=== PATIENT | female | born 1995 | race Caucasian/White ===

== ENCOUNTER 2023-07-10 03:21 | Outpatient (CLI) | payer BC, SELFPAY ==
[2023-07-10 22:40] LABS: Kit/Specimen SENT
== END 2023-07-10 03:22 | disposition home or self-care (01) ==
PROVIDERS: PCP Nurse Practitioner Family; Visit Provider Nurse Practitioner Family
DX: Z00.00 Encounter for general adult medical examination without abnormal findings (principal)
CPT/HCPCS: 36415

== ENCOUNTER 2024-03-16 15:52 | Outpatient (REF) | payer BC, SELFPAY ==
--- OUTSIDE RECORDS SUMMARY | 2024-03-16 16:02 | XMS_ITS | Encounter Summary ---
Author Organization [facility] Address [address] [place] [address] Care Team Providers Care Policewoman Name Role Phone Ben, Tommy MANCILLA Primary Care Provider [phone] Encounter Details Date Type Department Care Team (Late st Contact Info) Description 09/22/2014 14:08 EST - 09/22/2014 23:59 EST Hospital Encounter [facility] [address] [place] [address] BenTommy ND [address] [place] [id number] Discharge Disposition: Auto Discharge Social History Tobacco Use Types Packs/Day Years Used Date Smoking Tobacco: Never Alcohol Use Standard Drinks/Week Comments No 0 (1 standard drink = 0.6 oz pur e alcohol) Sex and Gender Information Value Date Recorded Sex Assigned at Not on file Gender Identity Not on file Sexual Orientation Not on file documented as of this encounter Discharge Diagnoses Diagnosis 729.81 SWELLING OF LIMB[ICD-9-CM] 883.0 OPEN WOUND OF FINGER[ICD-9-CM] 923.3 CONTUSION OF FINGER[ICD-9-CM] documented in this encounter Medications at Time of Discharge Medication Sig Dispensed Refills Start Date End Date UNKNOWN TO PATIENT documented as of this encounter Discharge Disposition Disposition Code Departure Means Destination Auto Discharge Home documented in this encounter Plan of Treatment Not on file documented as of this encounter Procedures Procedure Name Priority Date/Time Associated Diagnosis Comments FINGER 2 OR MORE VIEWS 09/22/2014 14:29 EST documented in this encounter Results * FINGER 2 OR MORE VIEWS (09/22/2014 14:29 EST) Anatomical Region Laterality Modality Other 09/22/2014 14:2 9 EST 09/22/2014 14:58 EST Narrative 09/22/2014 14:58 EST FINGER 2 OR MORE VIEWS ??09/22/2014 2:29 PM Clinical History/Comments: bruising, laceration, mild swelling. Findings: ?? A bandage is noted soft tissue defect suggests laceration underlying bone shows ??no fracture or dislocation. Procedure Note Ludwin Mane MD - 09/22/2014 FINGER 2 OR MORE VIEWS 09/22/2014 2:29 PM Clinical History/Comments: bruising, laceration, mild swelling. Findings: A bandage is noted soft tissue defect suggests laceration underlying bone shows no fracture or dislocation. Tommy [facility]AGI NG ORDERABLES documented in this encounter Visit Diagnoses Not on filedocumented in this encounter Care Teams Policewoman Relationship Specialty Start Date End Date Tommy Contreras ND [address] [place] [id number] PCP - General 12/04/13 documented as of this encounter
--- OUTSIDE RECORDS SUMMARY | 2024-03-16 16:02 | XMS_ITS | Clinical Summary ---
Author Organization [facility] Address [address] [place] [address] Care Team Providers Care Ship'S Master Name Role Phone Tommy Contreras ND Primary Care Provider Medications Medication Sig Dispensed Refills Start Date End Date Status UNKNOWN TO PATIENT Active Surgical History Surgery Date Site/Laterality Comments WISDOM TOOTH EXTRACTION Social History Tobacco Use Types Packs/Day Years Used Date Smoking Tobacco: Never Alcohol Use Standard Drinks/Week Comments No 0 (1 standard drink = 0.6 oz pur e alcohol) Sex and Gender Information Value Date Recorded Sex Assigned at Not on file Gender Identity Not on file Sexual Orientation Not on file Obstetrics History Last Filed Vital Signs Vital Sign Reading Time Taken Comments Blood Pressure 131/81 09/18/2014 0719 EST Pulse 103 09/18/2014 0719 EST Temperature 37.4 ??C (99.3 ??F) 09/18/2014 0719 EST Respiratory Rate 14 09/18/2014 0719 EST Oxygen Saturation 100% 09/18/2014 0719 EST Inhaled Oxygen Concentration - - Weight 51.7 kg (114 lb) 09/18/2014 0722 EST Height 160 cm (5' 3) 09/18/2014 0722 EST Body Mass Index 20.19 09/18/2014 0722 EST Plan of Treatment Health Maintenance Due Date Last Done Comments Hepatitis C Screen 1995 Hepatitis B Vaccine (1 of 3 - 19+ 3-dose series) 06/17 COVID-19 Vaccine (2022- season) 2023 Care Teams Ship'S Master Relationship Specialty Start Date End Date Tommy Contreras ND [address] [place], [place] [address] (work) PCP - General 12/04/13
--- OUTSIDE RECORDS SUMMARY | 2024-03-16 16:02 | XMS_ITS | Encounter Summary ---
Author Organization [facility] Address [address] [place] [address] Care Team Providers Care Commercial Technician Name Role Phone BenTommy CHARO Primary Care Provider [phone] Reason for Visit * Reason Onset Date Comments Appointment Related 01/02/2023 Encounter Details Date Type Department Care Team (Late st Contact Info) Description 01/02/2023 Telephone [facility] MED[facility]ET[facility] [address] [place], [place] [address] Ludwin Pineda MD [address] [facility] [address] [place] [address] Appointment Related Social History Tobacco Use Types Packs/Day Years Used Date Smoking Tobacco: Never Alcohol Use Standard Drinks/Week Comments No 0 (1 standard drink = 0.6 oz pur e alcohol) Sex and Gender Information Value Date Recorded Sex Assigned at Not on file Gender Identity Not on file Sexual Orientation Not on file documented as of this encounter Miscellaneous Notes * Telephone Encounter - Ramona Godinez - 01/02/2023 0808 EDT Calling to discuss potential appt for screening for egg donation. Please call. documented in this encounter Plan of Treatment Not on file documented as of this encounter Visit Diagnoses Not on filedocumented in this encounter Care Teams Commercial Technician Relationship Specialty Start Date End Date Tommy Contreras ND [facility] [place] [address] PCP - General 12/04/13 documented as of this encounter
--- OUTSIDE RECORDS SUMMARY | 2024-03-16 16:02 | XMS_ITS | Encounter Summary ---
Author Organization [facility] Address [address] [place] [address] Care Team Providers Care Supervisory Aide Name Role Phone Tommy Contreras ND Primary Care Provider [phone] Encounter Details Date Type Department Care Team (Late st Contact Info) Description 03/29/2016 Results Only [facility] [phone] Ashley Ng NP [address] [address] Social History Tobacco Use Types Packs/Day Years Used Date Smoking Tobacco: Never Alcohol Use Standard Drinks/Week Comments No 0 (1 standard drink = 0.6 oz pur e alcohol) Sex and Gender Information Value Date Recorded Sex Assigned at Not on file Gender Identity Not on file Sexual Orientation Not on file documented as of this encounter Plan of Treatment Not on file documented as of this encounter Procedures Procedure Name Priority Date/Time Associated Diagnosis Comments PAP TEST- RESULT ONLY Routine 03/29/2016 0:00 EDT documented in this encounter Results * PAP TEST- RESULT ONLY (03/29/2016 0:00 EDT) Pathology Report: CYTOPATHOLOGY REPORT Reports generated via electronic interface contain original data; however they are lacking the format of the original report. Caution should be taken when reading/interpreti ng unformatted reports. Name: ? BRIGETTE MOSS ? Accession #: ? [id number] : ? 1995 (Age: 20) ??F ?Collect Date: ? 03/29/2016 Location: ? [facility] ? Receive Date: ? 03/30/2016 Provider: ?ASHLEY NG CURRICULUM DEVELOPMENT SPECIALIST Copy to: ? Specimen/Source: ?Pap Test, Cervix/Endocervix, ThinPrep Imaging System with manual evaluation Last Menstrual Period: ? 03/13/2016 Hormonal/Contracep tive Status: ? None Other: ? Transport Assistant Clinical/Treatment Hx - None ? SPECIMEN ADEQUACY ? Satisfactory for Evaluation - transformation zone component present GENERAL CATEGORIZATION ? Negative for Intraepithelial Lesion or Malignancy INTERPRETATION ? Reactive cellular changes associated with inflammation present (includes repair). ? Document reviewed and electronically signed by: ? JARROD SLOAN MD ? Report Date: ??04/05/2016 17:28 End of Report [facility] 03/29/2016 03/30/2016 Ashley Ng CURRICULUM DEVELOPMENT SPECIALIST PATHOLOGY ORDERABLES [facility] [address] [place] [address] documented in this encounter Visit Diagnoses Not on filedocumented in this encounter Care Teams Supervisory Aide Relationship Specialty Start Date End Date Tommy Contreras ND [facility] [place] [address] PCP - General 12/04/13 documented as of this encounter
--- OUTSIDE RECORDS SUMMARY | 2024-03-16 16:02 | XMS_ITS | Encounter Summary ---
[place] [address] Care Team Providers Care Membership Coordinator Name Role Phone Juan Luis Luevano RHETT Primary Care Provider [phone] Reason for Referral * Diagnostic Test (Routine) - Pending Review Specialty Diagnoses / Procedures Referred By Contac t Referred To Contact Radiology Diagnoses Primary female infertility Procedures US Ovulation Induction Stacia Larkin MD [address] [address] [place] [address] Referral ID Status Reason Start Date Expiration Date Visits Requested Visits Authorized [id number] Pending Review Specialty Service Requested 3 12/24/2024 1 1 Reason for Visit * Diagnostic Test (Routine) - Pending Review Specialty Diagnoses / Procedures Referred By Contac t Referred To Contact Radiology Diagnoses Primary female infertility Procedures US Ovulation Induction Stacia Larkin MD [address] [place] [address] [place] [address] Referral ID Status Reason Start Date Expiration Date Visits Requested Visits Authorized [id number] Pending Review Specialty Service Requested 3 12/24/2024 1 1 Encounter Details Date Type Department Care Team (Latest Contact Info) Description 07/17/2023 7:45 AM EST - 07/17/2023 11:59 PM EST Hospital En[place] [phone] Stacia Larkin MD [facility] [address] [place] [address] Primary female infertility Discharge Disposition: Home Social History Tobacco Use Types Packs/Day Years Used Date Smoking Tobacco: Never Sex and Gender Information Value Date Recorded Sex Assigned at Not on file Gender Identity Not on file Sexual Orientation Not on file documented as of this encounter Medications at Time of Discharge Medication Sig Dispensed Refills Start Date End Date SUMAtriptan (IMITREX) 25 mg tablet Take 1 tablet by mouth as needed for Migraine (One at start of headache. May repeat in 1 hour. No more than 2 per day, 4 per week). 10 tablet 3 06/22/2011 10/13/2023 documented as of this encounter Plan of Treatment Not on file documented as of this encounter Procedures Procedure Name Priority Date/Time Associated Diagnosis Comments US OVULATION INDUCTION Routine 07/17/2023 8:13 AM EST Primary female infertility documented in this encounter Results * US Ovulation Induction (07/17/2023 8:13 AM EST) Anatomical Region Laterality Modality Abdomen, Pelvis Ultrasound 07/17/2023 7:56 AM EST Impressions 07/17/2023 8:53 AM EST Follicular Monitoring - Summary This transvaginal study was performed for follicular monitoring. The endometrial stripe measures 5.32 mm. The individual ovarian follicles are measured in the images obtained and are recorded above. I ??viewed the images and agree with the above interpretation. Thank you for letting us participate in the care of this patient. If you are a health care provider and have any questions regarding this report, please contact the number above. For patients who have questions, please contact the health rn progressive care unit that requested your imaging first. ? Richar Peñaloza, Staff Physician Electronically Signed Final Report ?? 07/17/2023 08:52 am Narrative 07/17/2023 8:53 AM EST Follicles Report ?(Signed Final 07/17/2023 08:52 am) PATIENT INFO: ID #: ? [id number] ?: ??[birth year] (28 yrs)(F) Name: ? BRIGETTE MOSS ? Visit Date: 07/17/2023 07:56 am PERFORMED BY: Performed By: ? Es Hawkins RDMS Attending: ?Jh VILLAREAL, Richar Rivas Resident: ? Vikram VILLAREAL, Lavinia Chaves Referred By: ?STACIA LARKIN Location: ? [facility] SERVICE(S) PROVIDED: UOI - Ovulation Induction - [id number] INDICATIONS: ANTRAL FOLLICLE COUNT AND SIZE; UTERINE LINING MEASUREMENT, AND ANY OTHER PERTINENT INFORMATION. TECHNIQUE/SCAN QUALITY: Technique: ?? Transducer#:27 RIGHT OVARY: Size(cm): ?3.5 ?x ??2.9 ? x ??2.1 ?Vol(ml): ?? 11.2 RIGHT OVARY FOLLICLES: Follicle # ?? Length(mm) ? Width(mm) ?Height(mm) ? Avg(mm) 1 ?19.5 ? 11.6 ? 10.4 ? 13.8 2 ?14.3 ? 10.2 ? 7.7 ?10.7 Follicle # ?? Length(mm) ? Width(mm) ?Height(mm) ? Avg(mm) 3 ?15.1 ? 10.7 ? 6.6 ?10.8 4 ?12.1 ? 10.2 ? 8.1 ?10.1 5 ?11.1 ? 10.4 ? 6.2 ?9.2 6 ?11.3 ? 8.3 ?5.9 ?8.5 7 ?10.4 ? 8.4 ?5.9 ?8.2 8 ?9.6 ?8.1 ?5.9 ?7.9 9 ?7.8 ?5.6 ?5.1 ?6.2 10 ? 8.6 ?5.7 ?3.3 ?5.9 11 ? 5.4 ?4.5 ?3.4 ?4.4 12 ? 3.3 ?2.0 ?1.6 ?2.3 13 ? 1.4 ?1.3 ?1.2 ?1.3 Follicle # ?? Volume(ml) ? Comments 1 ?1.2 2 ?0.6 3 ?0.6 4 ?0.5 5 ?0.4 6 ?0.3 7 ?0.3 8 ?0.2 9 ?0.1 10 ? 0.1 11 ? 0.0 12 ? 0.0 13 ? 0.0 LEFT OVARY: Size(cm): ?3.9 ?x ??3.1 ? x ??2.4 ?Vol(ml): ?? 15.2 LEFT OVARY FOLLICLES: Follicle # ?? Length(mm) ? Width(mm) ?Height(mm) ? Avg(mm) 1 ?18.8 ? 16.6 ? 13.5 ? 16.3 2 ?17.3 ? 11.4 ? 6.9 ?11.9 3 ?14.4 ? 11.2 ? 7.1 ?10.9 4 ?12.3 ? 10.1 ? 7.5 ?10.0 5 ?12.2 ? 10.4 ? 5.6 ?9.4 6 ?12.3 ? 8.0 ?6.3 ?8.9 7 ?10.6 ? 6.8 ?5.9 ?7.8 8 ?10.9 ? 7.0 ?3.3 ?7.1 9 ?7.4 ?4.6 ?2.8 ?4.9 10 ? 6.7 ?4.5 ?2.3 ?4.5 11 ? 5.0 ?2.9 ?2.7 ?3.5 12 ? 4.2 ?3.9 ?2.3 ?3.5 13 ? 3.8 ?2.8 ?2.8 ?3.1 14 ? 3.5 ?2.3 ?1.2 ?2.3 15 ? 1.7 ?1.7 ?1.4 ?1.6 Follicle # ?? Volume(ml) ? Comments 1 ?2.2 2 ?0.7 3 ?0.6 4 ?0.5 5 ?0.4 6 ?0.3 7 ?0.2 8 ?0.1 9 ?0.0 10 ? 0.0 11 ? 0.0 12 ? 0.0 13 ? 0.0 14 ? 0.0 15 ? 0.0 ENDOMETRIUM: Thickness (mm): ?5.32 ------- UTERUS: ------- Description: ?? No fluid in cul-de-sac Procedure Note Richar Peñaloza MD - 07/17/2023 Follicles Report (Signed Final 07/17/2023 08:52 am) PATIENT INFO: ID #: [id number] : [birth year] (28 yrs)(F) Name: BRIGETTE MOSS Visit Date: 07/17/2023 07:56 am PERFORMED BY: Performed By: Es Hawkins RDMS Attending: Richar Peñaloza MD Resident: Lavinia Sue MD Referred By: STACIA LARKIN Location: [facility] SERVICE(S) PROVIDED: UOI - Ovulation Induction - [id number] INDICATIONS: ANTRAL FOLLICLE COUNT AND SIZE; UTERINE LINING MEASUREMENT, AND ANY OTHER PERTINENT INFORMATION. TECHNIQUE/SCAN QUALITY: Technique: Transducer#:27 RIGHT OVARY: Size(cm): 3.5 x 2.9 x 2.1 Vol(ml): 11.2 RIGHT OVARY FOLLICLES: Follicle # Length(mm) Width(mm) Height(mm) Avg(mm) 1 19.5 11.6 10.4 13.8 2 14.3 10.2 7.7 10.7 Follicle # Length(mm) Width(mm) Height(mm) Avg(mm) 3 15.1 10.7 6.6 10.8 4 12.1 10.2 8.1 10.1 5 11.1 10.4 6.2 9.2 6 11.3 8.3 5.9 8.5 7 10.4 8.4 5.9 8.2 8 9.6 8.1 5.9 7.9 9 7.8 5.6 5.1 6.2 10 8.6 5.7 3.3 5.9 11 5.4 4.5 3.4 4.4 12 3.3 2.0 1.6 2.3 13 1.4 1.3 1.2 1.3 Follicle # Volume(ml) Comments 1 1.2 2 0.6 3 0.6 4 0.5 5 0.4 6 0.3 7 0.3 8 0.2 9 0.1 10 0.1 11 0.0 12 0.0 13 0.0 LEFT OVARY: Size(cm): 3.9 x 3.1 x 2.4 Vol(ml): 15.2 LEFT OVARY FOLLICLES: Follicle # Length(mm) Width(mm) Height(mm) Avg(mm) 1 18.8 16.6 13.5 16.3 2 17.3 11.4 6.9 11.9 3 14.4 11.2 7.1 10.9 4 12.3 10.1 7.5 10.0 5 12.2 10.4 5.6 9.4 6 12.3 8.0 6.3 8.9 7 10.6 6.8 5.9 7.8 8 10.9 7.0 3.3 7.1 9 7.4 4.6 2.8 4.9 10 6.7 4.5 2.3 4.5 11 5.0 2.9 2.7 3.5 12 4.2 3.9 2.3 3.5 13 3.8 2.8 2.8 3.1 14 3.5 2.3 1.2 2.3 15 1.7 1.7 1.4 1.6 Follicle # Volume(ml) Comments 1 2.2 2 0.7 3 0.6 4 0.5 5 0.4 6 0.3 7 0.2 8 0.1 9 0.0 10 0.0 11 0.0 12 0.0 13 0.0 14 0.0 15 0.0 ENDOMETRIUM: Thickness (mm): 5.32 ------- UTERUS: ------- Description: No fluid in cul-de-sac IMPRESSION Follicular Monitoring - Summary This transvaginal study was performed for follicular monitoring. The endometrial stripe measures 5.32 mm. The individual ovarian follicles are measured in the images obtained and are recorded above. I viewed the images and agree with the above interpretation. Thank you for letting us participate in the care of this patient. If you are a health care provider and have any questions regarding this report, please contact the number above. For patients who have questions, please contact the health rn progressive care unit that requested your imaging first. Richar Peñaloza, Staff Physician Electronically Signed Final Report 07/17/2023 08:52 am Stacia Larkin MD IMG US PELVIC ORDERA BLES documented in this encounter Visit Diagnoses Diagnosis Primary female infertility Female infertility of unspecified origin documented in this encounter Care Teams Membership Coordinator Relationship Specialty Start Date End Date Juan Luis Luevano DNP [address] [place] [id number] PCP - General Family Medicine 07/07/23 documented as of this encounter
--- OUTSIDE RECORDS SUMMARY | 2024-03-16 16:02 | XMS_ITS | Continuity of Care Document ---
Author Organization [facility] Address [address] [place] [address] Encounter LTTL_NH FIN NBR [id number] Date(s): 07/30/23 - 07/30/23 [facility] [address], [place] [address] Encounter Diagnosis Ovarian hyperstimulation syndrome(Discharge Diagnosis) - 07/30/23 Discharge Disposition: Home or Self Care Attending Physician: Gerson Montemayor MD, FACOG Admitting Physician: Gerson Montemayor MD, FACOG Allergies, Adverse Reactions, Alerts No Known Allergies Mental Status 07/30/23 Eye Opening Response [place] Spontaneous ly Best Verbal Response [place] Oriented Best Motor Response [place] Obeys comman ds [place] Coma Score 15 Results Laboratory List Name Date CBC w/ Diff 07/30/23 Comprehensive Metabolic Panel (CMP) 07/14 03/05 Automated Diff 07/30/23 Most recent to oldest [Reference Range]: 1 WBC [4.8-10.8 K/mcL] 12.4 K/mcL *HI* (07/30/23 4:28 PM) RBC [4.20-5.40 Million/mcL] 4.84 Million /mcL (07/30/23 4:28 PM) Neutro Auto [42.2-75.2 %] 78.9 % *HI* (07/30/23 4:28 PM) Lymph Auto [20.5-51.1 %] 13.0 % *LOW* (07/30/23 4:28 PM) Eureka Auto [1.7-9.3 %] 7.3 % (07/30/23 4:28 PM) Basophil Auto [0.0-0.8 %] 0.4 % (07/30/23 4:28 PM) BUN [7-25 mg/dL] 10 mg/dL (07/30/23 4:28 PM) Glucose Level [70-109 mg/dL] 89 mg/dL (07/30/23 4:28 PM) Potassium Level [3.5-5.1 mmol/L] 4.1 mmo l/L (07/30/23 4:28 PM) Baso Absolute [0.0-0.2 K/mcL] 0.1 K/mcL (07/30/23 4:28 PM) MCV [81.0-99.0 fL] 89.7 fL (07/30/23 4: PM) AST [13-39 IntlUnit/L] 23 IntlUnit/L (07/30/23 4:28 PM) ALT [7-52 IntlUnit/L] 41 IntlUnit/L (07/30/23 4: PM) MCHC [32.0-37.0 g/dL] 34.1 g/dL (07/30/23 4:28 PM) Osmolality [275-295 mOsm/kg] 272 mOsm/kg *LOW* (07/30/23: PM) Sodium Level [136-145 mmol/L] 137 mmol/L (07/30/23 4:28 PM) Lymph Absolute [1.2-3.4 K/mcL] 1.6 K/mcL (07/30/23 4: PM) Hct [37.0-47.0 %] 43.4 % (07/30/23: PM) Calcium Level [8.6-10.3 mg/dL] 8.6 mg/dL (07/30/23 4:28 PM) Eureka Absolute [0.1-0.6 K/mcL] 0.9 K/mcL *HI* (07/30/23 4:28 PM) Albumin Level [3.5-5.7 g/dL] 3.6 g/dL (07/30/23 4:28 PM) Protein Total [6.4-8.9 g/dL] 6.2 g/dL *LOW* (07/30/23 4:28 PM) MCH [27.0-31.0 pg] 30.6 pg (07/30/23 4:28 PM) Neutro Absolute [1.4-6.5 K/mcL] 9.8 K/mc L *HI* (12/17/23 4:28 PM) Bilirubin Total [0.3-1.0 mg/dL] 0.8 mg/d L (07/30/23 4:28 PM) Hgb [12.0-16.0 g/dL] 14.8 g/dL (07/30/23 4:28 PM) Alk Phos [34-104 IntlUnit/L] 13 IntlUnit /L *LOW* (07/30/23 4:28 PM) MPV [7.4-10.4 fL] 8.7 fL (07/30/23 4:28 PM) Platelets [130-400 K/mcL] 255 K/mcL (07/30/23 4:28 PM) CO2 [21-31 mmol/L] 27 mmol/L (07/30/23 4: PM) Eos Absolute [0.0-0.2 K/mcL] 0.0 K/mcL (07/30/23 4:28 PM) Chloride Level [98-107 mmol/L] 105 mmol/ L (07/30/23 4:28 PM) RDW-CV [11.5-14.5 %] 12.8 % (07/30/23 4:28 PM) A/G Ratio [1.0-2.5 g/dL] 1.4 g/dL (07/30/23 4:28 PM) BUN/Creat Ratio [8.0-20.0] 16.7 (07/30/23 4:28 PM) Globulin [2.3-3.5 g/dL] 2.6 g/dL (07/30/23 4:28 PM) Slide Review Not Indicated (07/30/23: PM) Creatinine Level [0.60-1.20 mg/dL] 0.60 mg/dL (07/30/23 4:28 PM) Anion Gap [3.0-12.0] 5.0 (07/30/23 4:28 PM) Eos, Auto [0.00-3.00 %] 0.40 % (07/30/23 4:28 PM) eGFR CKD-EPI [>=60 mL/min/1.73 m2] 125 m L/min/1.73 m2 (07/30/23 4:28 PM) Radiology Reports * Exam Date Time Procedure Performing Provider Status 12/17/23 4:37 PM XR Chest 2 Views Chante Washington; Marcus (Verified) Notes: (XR Chest 2 Views) Reason For Exam: SOB- ovarian hyperstimulation syndrome XR Chest 2 Views PROCEDURE INFORMATION: Exam: XR Chest Exam date and time: 07/30/2023 4:36 PM Age: 28 years old Clinical indication: Hyperstimulation of ovaries; Hyperstimulation of ovaries; Additional info: Sob- ovarian hyperstimulation syndrome TECHNIQUE: Imaging protocol: Radiologic exam of the chest. Views: 2 views. COMPARISON: No relevant prior studies available. FINDINGS: Lungs: Unremarkable. No consolidation. Pleural spaces: Unremarkable. No pleural effusion. No pneumothorax. Heart/Mediastinum: Unremarkable. No cardiomegaly. Bones/joints: Unremarkable. IMPRESSION: No acute findings. THIS DOCUMENT HAS BEEN ELECTRONICALLY SIGNED BY LAW SANCHEZ MD on 07/30/2023 05:10 PM Final Signed by: Law Sanchez MD Signed (Electronic Signature): 07/30/2023 5:10 pm Vital Signs Most recent to oldest [Reference Range]: 1 Temperature Temporal Artery [36-38 Deg C ] 37.1 Deg C (07/30/23 3:43 PM) Peripheral Pulse Rate [60-100 bpm] 96 bp m (07/30/23 3:43 PM) Respiratory Rate [12-24 br/min] 17 br/mi n (07/30/23 3:43 PM) Blood Pressure [90-140/60-90 mmHg] 114/8 3mmHg (07/30/23 3:43 PM) Mean Arterial Pressure, Cuff [70-110 mmH g] 93 mmHg (07/30/23 3:43 PM) Weight 51 kg (07/30/23 3:43 PM) Weight Dosing 51.000 kg (07/30/23 3:43 PM) Height 162 cm (07/30/23 3:43 PM) Body Mass Index 19.43 kg/m2 (07/30/23 3:43 PM) Social History Social History Type Response Tobacco Never tobacco user T obacco Use:. Sex Physician Emergency department Note * Gerson Montemayor MD, FACOG: PERFORM Event Display: ED Note Physician Authored Date: [id number] KILO MOSS :1995 Age:28 years Sex:Female Visit Date:07/30/2023 Basic Information ??No qualifying data available.?? Chief Complaint Pt presents to ED as outpt OB patient with plan for evaluation by MD Montemayor. Pter MD Montemayor evaluation for Ovarian Hyperstimulation . PWD in NAD, c/o increasing SOB today History Of Present Illness: Dx'd with ovarian hyperstimulation syndrome. SOB. Monday had egg harvest as an??egg donor. Initially had 24 follicles but reduced to 16 with large ovaries. developed discomfort.?? Seen and paracentesis done for 400 cc Monday.?Flew home to [place] yesterday and started feeling poorly.??Just doing electrolyte drinks, no free water but increasing SOB. Tylenol for pain and has Tramadol but hasn't had to use it yet. Physical Exam Vitals & Measurements T:??37.1?C ??(Temporal Artery)?? HR:??96??(Peripheral)?? RR:??17?? BP:??114/83?? SpO2:??98%?? HT:??162??cm?? WT:??51??kg?? BMI:??19.43?? O2 Therapy:??Room air?? Thin white female used wheelchair to get to room, appears uncomfortable.?? Pulse 96-106. Pulse ox 99%. No JVD. Chest with elevated diaphragms, no egophony above. Heart regular and no murmur.?? Abdomen soft minimally distended.?? BS hypoactive. Transabdominal US with Large multicystic ovaries bilaterally >7 cm each.??Peritoneal fluid seen but limited with largest pocket 5 cm. Extremities no edema. WBC 12.4 with 78.9% neutrophils, H/H 14.8/43.4%. CMP WNL with BUN 10. Procedure No Qualifying Data Assessment/Plan 1.??Ovarian hyperstimulation syndrome??N98.1 Some upper abdominal pressure on lungs but no effusion. Can expect slow resolution over 2-4 weeks and has f/u phone contact with reproductive medicine doctors. Ordered: Discharge Patient - ED, 07/30/23 17:14:00 EST, Home Independently ?? Problem List/Past Medical History Ongoing No qualifying data Historical No qualifying data Allergies No Known Allergies Social History Electronic Cigarette/Vaping Electronic Cigarette Use: Never. Tobacco Never tobacco user Tobacco Use:. Diagnostic Results XR Chest 2 Views 07/30/2023 17:10 EST XR Chest 2 Views ?? 07/30/23 16:36:22 PROCEDURE INFORMATION: Exam: XR Chest Exam date and time: 07/30/2023 4:36 PM Age: 28 years old Clinical indication: Hyperstimulation of ovaries; Hyperstimulation of ovaries; Additional info: Sob- ovarian hyperstimulation syndrome ?? TECHNIQUE: Imaging protocol: Radiologic exam of the chest. Views: 2 views. ?? COMPARISON: No relevant prior studies available. ?? FINDINGS: Lungs: Unremarkable. No consolidation. Pleural spaces: Unremarkable. No pleural effusion. No pneumothorax. Heart/Mediastinum: Unremarkable. No cardiomegaly. Bones/joints: Unremarkable. ?? IMPRESSION: No acute findings. ? THIS DOCUMENT HAS BEEN ELECTRONICALLY SIGNED BY LAW SANCHEZ MD on 07/30/2023 05:10 PM ?? Signed By: Law Sanchez MD Lab Results CBC and Differential?? LATEST RESULTS?? WBC?? 07/30/23 16:28?? 12.4 ??High?? RBC?? 07/30/23 16:28?? 4.84?? Hgb?? 07/30/23 16:28?? 14.8?? Hct?? 07/30/23 16:28?? 43.4?? MCV?? 07/30/23 16:28?? 89.7?? MCH?? 07/30/23 16:28?? 30.6?? MCHC?? 07/30/23 16:28?? 34.1?? RDW-CV?? 07/30/23 16:28?? 12.8?? Platelets?? 07/30/23 16:28?? 255?? MPV?? 07/30/23 16:28?? 8.7?? Neutro Auto?? 07/30/23 16:28?? 78.9 ??High?? Lymph Auto?? 07/30/23 16:28?? 13.0 ??Low?? Eureka Auto?? 07/30/23 16:28?? 7.3?? Eos, Auto?? 07/30/23 16:28?? 0.40?? Basophil Auto?? 07/30/23 16:28?? 0.4?? Neutro Absolute?? 07/30/23 16:28?? 9.8 ??High?? Lymph Absolute?? 07/30/23 16:28?? 1.6?? Eureka Absolute?? 07/30/23 16:28?? 0.9 ??High?? Eos Absolute?? 07/30/23 16:28?? 0.0?? Baso Absolute?? 07/30/23 16:28?? 0.1?? Slide Review?? 07/30/23 16:28?? Not Indicated? Routine Chemistry?? LATEST RESULTS?? Sodium Level?? 07/30/23 16:28?? 137?? Potassium Level?? 07/30/23 16:28?? 4.1?? Chloride Level?? 07/30/23 16:28?? 105?? CO2?? 07/30/23 16:28?? 27?? Alk Phos?? 07/30/23 16:28?? 13 ??Low?? AST?? 07/30/23 16:28?? 23?? ALT?? 07/30/23 16:28?? 41?? BUN?? 07/30/23 16:28?? 10?? Glucose Level?? 07/30/23 16:28?? 89?? Creatinine Level?? 07/30/23 16:28?? 0.60?? BUN/Creat Ratio?? 07/30/23 16:28?? 16.7?? eGFR CKD-EPI?? 07/30/23 16:28?? 125?? Calcium Level?? 07/30/23 16:28?? 8.6?? Protein Total?? 07/30/23 16:28?? 6.2 ??Low?? Albumin Level?? 07/30/23 16:28?? 3.6?? Globulin?? 07/30/23 16:28?? 2.6?? A/G Ratio?? 07/30/23 16:28?? 1.4?? Bilirubin Total?? 07/30/23 16:28?? 0.8?? Anion Gap?? 07/30/23 16:28?? 5.0?? Osmolality?? 07/30/23 16:28?? 272 ??Low? Electronically Signed on 07/30/23 05:18 PM Gerson Montemayor MD, [facility] Patient Care team information Care Team Personnel Name: Vesna Almanzar Position: Nurse Member Role: ED Nurse Care Team Related Persons Name: SOHAIL MOSS
--- OUTSIDE RECORDS SUMMARY | 2024-03-16 16:02 | XMS_ITS | Encounter Summary ---
[place] [address] Care Team Providers Care Tank Maker Wood Name Role Phone Juan Luis Luevano DNP Primary Care Provider [phone] Encounter Details Date Type Department Care Team (Latest Contact Info) Description 10/13/2023 Travel Social History Tobacco Use Types Packs/Day Years Used Date Smoking Tobacco: Never Sex and Gender Information Value Date Recorded Sex Assigned at Not on file Gender Identity Not on file Sexual Orientation Not on file documented as of this encounter Plan of Treatment Not on file documented as of this encounter Visit Diagnoses Not on filedocumented in this encounter Care Teams Tank Maker Wood Relationship Specialty Start Date End Date Juan Luis Luevano DNP [address] [place] [id number] PCP - General Family Medicine 07/07/23 documented as of this encounter
--- OUTSIDE RECORDS SUMMARY | 2024-03-16 16:02 | XMS_ITS | Encounter Summary ---
Author Organization [facility] [place] [address] Care Team Providers Care Digital Advertising Analyst Name Role Phone Aura Jay MD Primary Care Provider Reason for Visit * Reason Comments Other ? migraine Encounter Details Date Type Department Care Team (Late st Contact Info) Description 06/22/2011 8:45 AM EST Office Visit [place] [id number] Solomon Beasley MD [facility] [place] [address] Migraine headache (Primary Dx) Discharge Disposition: Home Social History Tobacco Use Types Packs/Day Years Used Date Smoking Tobacco: Never Sex and Gender Information Value Date Recorded Sex Assigned at Not on file Gender Identity Not on file Sexual Orientation Not on file documented as of this encounter Last Filed Vital Signs Vital Sign Reading Time Taken Comments Blood Pressure 107/66 06/22/2011 9:04 AM EST Pulse 58 06/22/2011 9:04 AM EST Temperature - - Respiratory Rate 18 06/22/2011 9:04 AM EST Oxygen Saturation - - Inhaled Oxygen Concentration - - Weight 57.1 kg (125 lb 12.8 oz) 06/22/2011 9:04 AM EST Height 161.5 cm (5' 3.58) 06/22/2011 9:04 AM ES T Head Circumference 54.6 cm 06/22/2011 9:04 AM EST Body Mass Index 21.88 06/22/2011 9:04 AM EST Body Mass Index Percentile 66.47% 06/22/2011 9:0 4 AM EST Growth Chart: CDC (Girls, 2- 20 Years) documented in this encounter Progress Notes * Solomon Beasley MD - 06/22/2011 10:25 AM EST Brigette is a 16-year-old patient referred by Dr. Dominguez, because of severe headaches. 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 At any rate, last winter she developed a severe headache along with some agitation and confusion. She was in [facility] for a period of time, and then was transferred down here. They did three LP's before they were successful, and the spinal fluid was benign with 1 white cell, no red cells. Glucose 63 and protein 23. She was treated for herpes with acyclovir until the PCR came back negative. She did have an elevated white count with 78 neutrophils. LFTs and kidney functions studies were normal, as well as a negative urine test and urine toxicity, other than for opioids which she had received in the emergency room. Apparently, there was evidence on her CT of sinusitis. She had been under a lot of stress and was seen by child psychiatry here and was to follow up here with Dr. Murphy, but this never happened. At any rate, she did well until the summer when she was in [employer] [facility]. At this time, she developed another severe headache and had to be taken out of the course. She says that her headaches are mostly over her entire head, though can be behind the eyes. She demonstrates with her hands that they are mostly like a squeezing phenomena. She does not have nausea or vomiting, but she has severe photophobia and has to stay on bed, and can really be bothered. Tylenol and ibuprofen have not helped the headaches at all. She has not been on any narcotics for the headaches or any triptans, and has not been on any daily medication. 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 She just recently has met a counselor that she can relate to which should be helpful. This summer before the start of her headache she had been on Yvonne a control pill for period regulation. She has not been on anything like that since last winter. She has not been on anything like that since then, the episode of the summer was not precipitated by her being on control pills. Brigette generally has been in good health. She has never been hospitalized other than the episode last winter. She has not had any surgery. She is not on daily medicines, and she is not allergic to any medication she knows about. She has not had any significant concussions. She denies being under any particular stress at this time, and field hockey went very well for her, and she is looking forward to basketball this winter. She has never had any heart issues or asthma, ongoing GI problems, bladder infections, joint problems, or chronic rashes. She feels well at the present time, but want some answers as to why she had the headache, and why she does not have as much energy as she had when she was a freshmen in high school, and was able to play three sports. There is no family history of migraine. She lives with her parents, who are both in good health, and her 13-year-old brother who is in good health. There are no major stressors in the family that she or her mother are aware, and Brigette says she is not under as much stress in school as she was last winter. Today, on examination, her blood pressure is 107/66, pulse is 58, respiratory rate is 18. She is 161.5 cm tall and weighs 57 kg. Head circumference is 54.6 cm. She is having no pain. On exam, there are no obvious congenital anomalies. I do not see any skin lesions suggesting a neuroectodermal disorder. Chest and lungs are clear. I do not hear any significant cardiac murmurs. On neurologic exam, she is alert, orientated, and gives an excellent history. Her mentation is certainly age-appropriate. Pupils are equal and reactive. Her fundi are normal with flat disks and no venous engorgement. EOMs are full without nystagmus. Confrontation visual dyson are within normal limits including with double simultaneous stimulation. There is no facial weakness or sensory loss. Hearing is intact to finger rub bilaterally. Tongue and pharynx move well. She has normal sternocleidomastoid strength. There is no weakness in her upper or lower extremities. She has a normal station and gait. She can tandem walk and hop on either foot without any problems. She has a negative Romberg test. There is no ataxia on [id number] testing. Rapid alternating movements are carried out quite well. I did not see any tremors or other adventitious movements. Deep tendon reflexes are normoactive and symmetric. Plantar responses are flexor. I think Brigette has headaches that I would categorize as migraines since she has tremendous photophobia, they come on relatively quickly, and they are severe in nature. She had a normal CT scan of the head when she had her first one, other than some mild sinus problems. The most recent headache was not accompanied by any fever and/or apparent confusion - she just had a bad headache. I think it would be reasonable to try her on a triptan, and I prescribed sumatriptan 25 mg to be taken right at the start of the headache. She can repeat this once in two hours and instructions were put on the bottle to not to take more than four a week. I am not setting up a followup appointment since I am retiring very soon, but she was instructed to call Rebecca Schmid RN, if things are not going well, and then we should see her again in followup. I talked about not having an exact answer why she had the headaches, but the normal exam and being headache-free at the present time, as well as a normal tests that were done when she was hospitalized with the exception of elevated white count are quite reassuring. Thirty five minutes of this one-hour evaluation were spent in discussion and Counseling. Her diagnosis is migraine. CC: Darwin Dominguez M.D. [facility] documented in this encounter Plan of Treatment Not on file documented as of this encounter Visit Diagnoses Diagnosis Migraine headache- Primary Migraine, unspecified, without mention of intractable migraine without mention of status migrainosus documented in this encounter Care Teams Digital Advertising Analyst Relationship Specialty Start Date End Date Aura Jay MD [facility] [place] [address] PCP - General 07/06/10 07/06/23 documented as of this encounter
--- OUTSIDE RECORDS SUMMARY | 2024-03-16 16:02 | XMS_ITS | Encounter Summary ---
Author Organization [facility] Address [address] [place] [address] Care Team Providers Care Dross Puller Name Role Phone Tommy Contreras ND Primary Care Provider [phone] Encounter Details Date Type Department Care Team (Late st Contact Info) Description 04/03/2014 Results Only [facility] Laboratory Services - [facility] ([facility]) [address] [place], [place] [id number] Rebecca Nagel MD [address] [place] [address] [address] [place], [place] [id number] Social History Tobacco Use Types Packs/Day Years Used Date Smoking Tobacco: Never Assessed Sex and Gender Information Value Date Recorded Sex Assigned at Not on file Gender Identity Not on file Sexual Orientation Not on file documented as of this encounter Plan of Treatment Not on file documented as of this encounter Procedures Procedure Name Priority Date/Time Associated Diagnosis Comments PAP TEST- RESULT ONLY Routine 04/03/2014 0:00 EDT documented in this encounter Results * PAP TEST- RESULT ONLY (04/03/2014 0:00 EDT) Pathology Report: CYTOPATHOLOGY REPORT Reports generated via electronic interface contain original data; however they are lacking the format of the original report. Caution should be taken when reading/interpreti ng unformatted reports. Name: ? BRIGETTE MOSS ? Accession #: ? [id number] : ? 1995 (Age: 18) ??F ?Collect Date: ? 04/03/2014 Location: ? [facility] ? Receive Date: ? 04/07/2014 Provider: ?REBECCA NAGEL MD Copy to: ? Specimen/Source: ?Pap Test, Cervix/Endocervix, ThinPrep Imaging System with manual evaluation Last Menstrual Period: ? 11/11/13 Hormonal/Contracep tive Status: ? Yes: Norethindrone ? SPECIMEN ADEQUACY ? Satisfactory for Evaluation - transformation zone component present GENERAL CATEGORIZATION ? Negative for Intraepithelial Lesion or Malignancy ? Document reviewed and electronically signed by: ? DENEEN Berrios(ASCP) ? Report Date: ??04/09/2014 15:32 End of Report JORDI GALLEGOS 04/03/2014 04/07/2014 Rebecca Nagel MD PATHOLOGY ORDERABLES JORDI GALLEGOS [address] [place] [address] documented in this encounter Visit Diagnoses Not on filedocumented in this encounter Care Teams Dross Puller Relationship Specialty Start Date End Date Tommy Contreras ND [address] [place] [address] PCP - General 12/04/13 documented as of this encounter
--- OUTSIDE RECORDS SUMMARY | 2024-03-16 16:02 | XMS_ITS | Encounter Summary ---
[place] [address] Care Team Providers Care Predatory Game Hunter Name Role Phone Juan Luis Luevano DNP Primary Care Provider [phone] Encounter Details Date Type Department Care Team (Latest Contact Info) Description 07/07/2023 Travel Social History Tobacco Use Types Packs/Day Years Used Date Smoking Tobacco: Never Sex and Gender Information Value Date Recorded Sex Assigned at Not on file Gender Identity Not on file Sexual Orientation Not on file documented as of this encounter Plan of Treatment Not on file documented as of this encounter Visit Diagnoses Not on filedocumented in this encounter Care Teams Predatory Game Hunter Relationship Specialty Start Date End Date Juan Luis Luevano DNP [address] [place] [address] PCP - General Family Medicine 07/07/23 documented as of this encounter
--- OUTSIDE RECORDS SUMMARY | 2024-03-16 16:02 | XMS_ITS | Encounter Summary ---
Author Organization [facility] Address [address] [place] [address] Care Team Providers Care Medical Office Technology Instructor Name Role Phone Unknown, Provider Primary Care Provider [phone] Encounter Details Date Type Department Care Team (Latest Contact Info) Description 11/29/2013 10:16 EDT - 11/29/2013 22:00 EDT Hospital Encounter [address] [address] Rebecca Funes ND [address] [place] [address] Discharge Disposition: Home or Self Care Social History Tobacco Use Types Packs/Day Years Used Date Smoking Tobacco: Never Assessed Sex and Gender Information Value Date Recorded Sex Assigned at Not on file Gender Identity Not on file Sexual Orientation Not on file documented as of this encounter Discharge Diagnoses Diagnosis V77.0 SCREENING-THYROID DISORDER[ICD-9-CM] V78.0 SCREENING-IRON DEFIC ANEMIA[ICD-9-CM] 458.0 ORTHOSTATIC HYPOTENSION[ICD-9-CM] 625.3 DYSMENORRHEA[ICD-9-CM] V77.91 SCREENING FOR LIPOID DISORDERS[ICD-9-CM] documented in this encounter Discharge Disposition Disposition Code Departure Means Destination Home or Self Care documented in this encounter Plan of Treatment Not on file documented as of this encounter Visit Diagnoses Not on filedocumented in this encounter Care Teams Medical Office Technology Instructor Relationship Specialty Start Date End Date Unknown, Provider, PCP - General 11/29/13 12/03/13 documented as of this encounter
--- OUTSIDE RECORDS SUMMARY | 2024-03-16 16:02 | XMS_ITS | Encounter Summary ---
[facility] Organization [facility] [place] [address] Care Team Providers Care Lavender Farm Worker Name Role Phone Juan Luis Luevano DNP Primary Care Provider [phone] Encounter Details Date Type Department Care Team (Late st Contact Info) Description 10/13/2023 Orders Only [place] [address] Daisy Black MD [facility] [place] [address] Travel advice encounter Social History Tobacco Use Types Packs/Day Years Used Date Smoking Tobacco: Never Sex and Gender Information Value Date Recorded Sex Assigned at Not on file Gender Identity Not on file Sexual Orientation Not on file documented as of this encounter Plan of Treatment Not on file documented as of this encounter Visit Diagnoses Diagnosis Travel advice encounter documented in this encounter Care Teams Lavender Farm Worker Relationship Specialty Start Date End Date Juan Luis Luevano DNP [address] [place] [address] PCP - General Family Medicine 07/07/23 documented as of this encounter
--- OUTSIDE RECORDS SUMMARY | 2024-03-16 16:02 | XMS_ITS | Encounter Summary ---
Author Organization [facility] Address [address] [place] [address] Care Team Providers Care Digital Media Coordinator Name Role Phone Tommy Contreras ND Primary Care Provider [phone] Encounter Details Date Type Department Care Team (Latest Contact Info) Description 06/26/2015 16:25 EST - 06/26/2015 22:00 [facility] Hospital Encounter [facility] - [address] [address] Martín Esteban, FIDEL [address] [place] [address] [id number] Discharge Disposition: Home or Self Care Social [...] as of this encounter Discharge Diagnoses Diagnosis L08.9 Local infection of the skin and subcutaneous tissue, unspecified-L08.9[ICD-10-CM] documented in this encounter Medications at Time of Discharge Medication Sig Dispensed Refills Start Date End Date UNKNOWN TO PATIENT documented as of this encounter Discharge Disposition Disposition Code Departure Means Destination Home or Self Care documented in this encounter Plan of Treatment Not on file documented as of this encounter Visit Diagnoses Not on filedocumented in this encounter Care Teams Digital Media Coordinator Relationship Specialty Start Date End Date Tommy Contreras ND [address] [place], [place] [address] PCP - General 12/04/13 documented as of this encounter
--- OUTSIDE RECORDS SUMMARY | 2024-03-16 16:02 | XMS_ITS | Encounter Summary ---
Author Organization [facility] Address [address] [place] [address] Care Team Providers Care Level Glass Forming Machine Operator Name Role Phone Tommy Contreras ND Primary Care Provider [phone] Encounter Details Date Type Department Care Team (Late st Contact Info) Description 05/31/2017 Results Only [facility]- [facility] [phone] Anya Rayo, SHORT STORY WRITER [address] [place] [phone] Social History Tobacco Use Types Packs/Day Years [...] Diagnosis Comments PAP TEST- RESULT ONLY Routine 05/31/2017 0:00 EDT documented in this encounter Results * PAP TEST- RESULT ONLY (05/31/2017 0:00 EDT) Pathology Report: CYTOPATHOLOGY REPORT Reports generated via electronic interface contain original data; however they are lacking the format of the original report. Caution should be taken when reading/interpreti ng unformatted reports. Name: ? BRIGETTE MOSS ? Accession #: ? [id number] ? : ? 1995 (Age: 21) ??F ?Collect Date: ? 05/31/2017 ? Location: ? [facility] ? Receive Date: ? 06/02/2017 ? Provider: ANYA RAYO [facility]- Copy to: ? Final Report SPECIMEN ADEQUACY ? Satisfactory for Evaluation - transformation zone component present GENERAL CATEGORIZATION ? Negative for Intraepithelial Lesion or Malignancy ?? Last Menstrual Period: 04/17/2017 Hormonal/Contracep tive status: Yes Specimen/Source: ??Pap Test, Cervix, ThinPrep Imaging System with manual evaluation Document reviewed and electronically signed by: ? DENEEN Schilling(ASCP) ? Report ??Date: 06/14/2017 13:02 HPV with Pap Test ? Date Ordered: ? 06/14/2017 ? Status: ?? Signed Out ?Date Complete: ? 06/15/2017 ? By: ??System Interface ? Date Reported: ? 06/15/2017 ? Interpretation RESULT: Negative for HPV. No E6 or E7 mRNA is detected from HPV types 16,18,31,33,35, 39,45,51,52,56,58, 59,66, and 68 by nutrition helper mediated amplification. Comments Document reviewed and electronically signed by: ? System Interface ? Report date: 06/15/2017 By the signature above, the attending physician certifies that he/she has personally conducted a gross and/or microscopic examination of the described specimens and rendered or confirmed the above diagnosis. End of Report [facility] 05/31/2017 06/02/2017 Anya Rayo NP PATHOLOGY ORDERABLES [facility] [address] [place] [address] documented in this encounter Visit Diagnoses Not on filedocumented in this encounter Care Teams Level Glass Forming Machine Operator Relationship Specialty Start Date End Date Tommy Contreras ND [address] [place] [address] PCP - General 12/04/13 documented as of this encounter
--- OUTSIDE RECORDS SUMMARY | 2024-03-16 16:02 | XMS_ITS | Encounter Summary ---
[facility] [place] [address] Care Team Providers Care Spinning And Winding Supervisor Name Role Phone Juan Luis Luevano DNP Primary Care Provider [phone] Encounter Details Date Type Department Care Team (Latest Contact Info) Description 07/17/2023 6:55 AM EST Laboratory Appointment Lab [address] [place] [phone] Primary female infertility Social History Tobacco Use Types Packs/Day Years Used Date Smoking Tobacco: Never Sex and Gender Information Value Date Recorded Sex Assigned at Not on file Gender Identity Not on file Sexual Orientation Not on file documented as of this encounter Plan of Treatment Not on file documented as of this encounter Procedures Procedure Name Priority Date/Time Associated Diagnosis Comments PROGESTERONE Routine 07/17/2023 7:06 AM EST Primary female infertility ESTRADIOL STAT 07/17/2023 7:06 AM EST Primary female infertility BETA HCG, QUANTITATIVE Routine 07/17/2023 7:06 AM EST Primary female infertility LUTEINIZING HORMONE STAT 07/17/2023 7 :06 AM EST Primary female infertility FOLLICLE STIMULATING HORMONE Routine 07/17/2023 7:06 AM EST Primary female infertility documented in this encounter Results * Luteinizing Hormone (07/17/2023 7:06 AM EST) Luteinizing Hormone 1.3 mlU/ML [facility] Comment: Reference Ranges Male: ? 1.7-8.6 mIU/mL Female ?? Follicular: ?2.4-12.6 mIU/mL ?? Ovulation: ? 14.0-95.6 mIU/mL ?? Luteal: ?1.0-11.4 mIU/mL ?? Postmenopausal: ?7.7-58.5 mIU/mL Blood 07/17/2023 7:06 AM EST 07/17/2023 7:09 AM EST Narrative Resulting Agency Comment Spec In Lab Brandan Larkin MD CHEMISTRY ORDERABLES [facility] [place] [address] * Estradiol (07/17/2023 7:06 AM EST) Estradiol 414 pg/mL [facility] Comment: Reference ranges: Males: Adult: ? 11 to 43 pg/mL Females: Non- females: ?Follicular: ??12-233 pg/mL ?Ovulation: ?? 41-398 pg/mL ?Luteal: ?22-341 pg/mL ?Postmenopausal: ?? <5 - 138 pg/mL females: ?1st trimester: ??154-3243 pg/mL ?2nd trimester: ??1561-42663 pg/mL ?3rd trimester: ??8525- >04956 pg/mL Blood 07/17/2023 7:06 AM EST 07/17/2023 7:09 AM EST Narrative Resulting Agency Comment Spec In Lab Brandan Larkin MD CHEMISTRY ORDERABLES Performing Organization Address [facility] Co de Phone Number [facility] [place] [address] * Follicle Stimulating Hormone (07/17/2023 7:06 AM EST) Follicle Stimulating Hormone 24.2 mlU/ML [facility] Comment: Reference Ranges Male: ? 1.5-12.4 mIU/mL Female ?? Follicular: ?3.5-12.5 mIU/mL ?? Ovulation: ? 4.7-21.5 mIU/mL ?? Luteal: ?1.7-7.7 mIU/mL ?? Postmenopausal: ?25.8-134.8 mIU/mL Blood 07/17/2023 7:06 AM EST 07/17/2023 7:09 AM EST Narrative Resulting Agency Comment Spec In Lab Brandan Larkin MD CHEMISTRY ORDERABLES Performing Organization Address [facility] de Phone Number [facility] [place] [address] * Beta HCG, quantitative (07/17/2023 7:06 AM EST) Beta Human Chorionic Gonadotropin, Quantitative <1 mlU/ML [facility] Comment: REFERENCE RANGES NON- FEMALE: ??Less than 5 mIU/mL POSTMENOPAUSAL FEMALE: ??Less than 8 mIU/mL ? -- FEMALES -- Weeks of ? HCG range ??(mIU/mL) ? 3 weeks ? 5.8 - 71.2 ? 4 weeks ? 9.5 - 750 ? 5 weeks ? 217 - 7,138 ? 6 weeks ? 158 - 31,795 ? 7 weeks ? 3,697 - 163,563 ? 8 weeks ? 32,065 - 149,571 ? 9 weeks ? 63,803 - 151,410 ?10 weeks ? 46,509 - 186,977 ?12 weeks ? 27,832 - 210,612 ?14 weeks ? 13,950 - 62,530 ?15 weeks ? 12,039 - 70,971 ?16 weeks ? 9,040 - 56,451 ?17 weeks ? 8,175 - 55,868 ?18 weeks ? 8,906 - 55,470 This result was generated using a Octavio Ralf immunoassay. ??Results obtained from other methods or manufacturers cannot be used interchangeably with this method. Blood 07/17/2023 7:06 AM EST 07/17/2023 7:09 AM EST Narrative Resulting Agency Comment Spec In Lab Brandan Larkin MD CHEMISTRY ORDERABLES Performing Organization Address [facility] de Phone Number [facility] [place] [address] * Progesterone (07/17/2023 7:06 AM EST) Progesterone 0.76 ng/mL [facility] Comment: Reference Range ng/mL: Males: ? < 0.15 Females: Non-: Follicular: ?< 0.19 Luteal: ?4.11 ? 14.50 Ovulation: ? 0.06 ? 4.14 Post menopause: ??< 0.13 : 1st trimester: ?? 11.00 ? 44.30 2nd trimester: ?? 25.40 ? 83.40 3rd trimester: ?? 58.70 ? 214.00 Blood 07/17/2023 7:06 AM EST 07/17/2023 7:09 AM EST Narrative Resulting Agency Comment Spec In Lab Brandan Larkin MD CHEMISTRY ORDERABLES Performing Organization Address [facility] Co de Phone Number [facility] [place] [address] documented in this encounter Visit Diagnoses Diagnosis Primary female infertility Female infertility of unspecified origin documented in this encounter Care Teams Spinning And Winding Supervisor Relationship Specialty Start Date End Date Juan Luis Luevano DNP [address] [place] [address] PCP - General Family Medicine 07/07/23 documented as of this encounter
--- OUTSIDE RECORDS SUMMARY | 2024-03-16 16:02 | XMS_ITS | Encounter Summary ---
[place] [address] Care Team Providers Care Laceworker Name Role Phone Aura Jay MD Primary Care Provider [phone] Encounter Details Date Type Department Care Team (Latest Contact Info) Description 06/23/2023 Transcribe [place] [phone] Brandan Larkin MD [facility] [address] [place] [id number] Primary female infertility Social History Tobacco Use Types Packs/Day Years Used Date Smoking Tobacco: Never Sex and Gender Information Value Date Recorded Sex Assigned at Not on file Gender Identity Not on file Sexual Orientation Not on file documented as of this encounter Plan of Treatment Scheduled Orders Name Type Priority Associated Diagnoses Orde r Schedule Estradiol Lab STAT Primary female infertility As Needed for 3 Occurrences starting 06/23/2023 until 06/23/2024, 1 completed Luteinizing Hormone Lab STAT Primary female infertility As Needed for 3 Occurrences starting 06/23/2023 until 06/23/2024, 1 completed Progesterone Lab STAT Primary female infertility As Needed for 3 Occurrences starting 06/23/2023 until 06/23/2024 Lab Use Only, Fax Request Lab STAT Primary female infertility As Needed for 3 Occurrences starting 06/23/2023 until 06/23/2024, 1 completed documented as of this encounter Results * Luteinizing Hormone (07/17/2023 7:06 AM EST) Luteinizing Hormone 1.3 mlU/ML [facility] Comment: Reference Ranges Male: ? 1.7-8.6 mIU/mL Female ?? Follicular: ?2.4-12.6 mIU/mL ?? Ovulation: ? 14.0-95.6 mIU/mL ?? Luteal: ?1.0-11.4 mIU/mL ?? Postmenopausal: ?7.7-58.5 mIU/mL Blood 07/17/2023 7:06 AM EST 07/17/2023 7:09 AM EST Narrative Resulting Agency Comment Spec In Lab Brandan Larkin MD CHEMISTRY ORDERABLES [facility] [place] [address] * Estradiol (07/17/2023 7:06 AM EST) Estradiol 414 pg/mL [facility] Comment: Reference ranges: Males: Adult: ? 11 to 43 pg/mL Females: Non- females: ?Follicular: ??12-233 pg/mL ?Ovulation: ?? 41-398 pg/mL ?Luteal: ?22-341 pg/mL ?Postmenopausal: ?? <5 - 138 pg/mL females: ?1st trimester: ??154-3243 pg/mL ?2nd trimester: ??1561-22495 pg/mL ?3rd trimester: ??8525- >28481 pg/mL Blood 07/17/2023 7:06 AM EST 07/17/2023 7:09 AM EST Narrative Resulting Agency Comment Spec In Lab Brandan Larkin MD CHEMISTRY ORDERABLES Performing Organization Address [facility] Co de Phone Number [facility] [place] [address] * Progesterone (07/17/2023 7:06 AM EST) Progesterone 0.76 ng/mL [facility] Comment: Reference Range ng/mL: [...] Larkin MD CHEMISTRY ORDERABLES Performing Organization Address [facility] Co de Phone Number [facility] [place] [address] * Beta HCG, quantitative (07/17/2023 7:06 AM EST) Pathologist [facility] Beta Human Chorionic Gonadotropin, Quantitative <1 mlU/ML [facility] Comment: REFERENCE RANGES NON- FEMALE: ??Less [...] ? 8,175 - 55,868 ?18 weeks ? 6,300 - 15,545 This result was generated using a Octavio Ralf immunoassay. ??Results obtained from other methods or manufacturers cannot be used interchangeably with this method. Blood 07/17/2023 7:06 AM EST 07/17/2023 7:09 AM EST Narrative Resulting Agency Comment Spec In Lab Brandan Larkin MD CHEMISTRY ORDERABLES Performing Organization Address [facility] Co de Phone Number [facility] [place] [address] * Follicle Stimulating Hormone (07/17/2023 7:06 AM EST) Follicle Stimulating Hormone 24.2 mlU/ML [facility] Comment: Reference Ranges Male: ? 1.5-12.4 mIU/mL Female ?? Follicular: ?3.5-12.5 mIU/mL ?? Ovulation: ? 4.7-21.5 mIU/mL ?? Luteal: ?1.7-7.7 mIU/mL ?? Postmenopausal: ?25.8-134.8 mIU/mL Blood 07/17/2023 7:06 AM EST 07/17/2023 7:09 AM EST Narrative Resulting Agency Comment Spec In Lab Brandan Larkin MD CHEMISTRY ORDERABLES Performing Organization Address [facility] de Phone Number [facility] [place] [address] documented in this encounter Visit Diagnoses Diagnosis Primary female infertility Female infertility of unspecified origin documented in this encounter Care Teams Laceworker Relationship Specialty Start Date End Date Aura Jay MD [facility] [place] [address] PCP - General 07/06/10 07/06/23 documented as of this encounter
--- OUTSIDE RECORDS SUMMARY | 2024-03-16 16:02 | XMS_ITS | Encounter Summary ---
[place] [address] Care Team Providers Care Header Set Up Operator Name Role Phone Aura Jay MD Primary Care Provider [phone] Encounter Details Date Type Department Care Team (Late st Contact Info) Description 07/04/2023 [place] [phone] Brandan Larkin MD [address] [address] Social History Tobacco Use Types Packs/Day Years Used Date Smoking Tobacco: Never Sex and Gender Information Value Date Recorded Sex Assigned at Not on file Gender Identity Not on file Sexual Orientation Not on file documented as of this encounter Plan of Treatment Not on file documented as of this encounter Visit Diagnoses Not on filedocumented in this encounter Care Teams Header Set Up Operator Relationship Specialty Start Date End Date Aura Jay MD [facility] [address] [facility] [place] [address] PCP - General 07/06/10 07/06/23 documented as of this encounter
--- OUTSIDE RECORDS SUMMARY | 2024-03-16 16:02 | XMS_ITS | Encounter Summary ---
Author Organization [facility] Address [address] [place] [address] Care Team Providers Care Casing Worker Name Role Phone Tommy Contreras ND Primary Care Provider [phone] Encounter Details Date Type Department Care Team (Late st Contact Info) Description 06/26/2015 Results Only [facility] [phone] Martín Esteban, FIDEL [address] [place], [place] [address] Social History Tobacco Use Types Packs/Day Years [...] Procedure Name Priority Date/Time Associated Diagnosis Comments BACTERIAL CULTURE/SMEAR Routine 06/26/2015 8:12 EST documented in this encounter Results * BACTERIAL CULTURE/SMEAR, OTHER (06/26/2015 8:12 EST) Gram Smear Result No polys seen 06/26/2015 13:06 EST [facility] Gram Smear Result No bacteria seen 06/26/2015 13:06 EST [facility] Result No growth 06/28/2015 7:12 EST [facility] SPECIMEN FROM SKIN / Unknown 06/26/2015 8:12 EST 06/26/2015 10:50 EST Comment:Specimen submitted o n a swab Martín PARRA MICROBIOLOGY - GENE RAL ORDERABLES [facility] [address] [place] [address] documented in this encounter Visit Diagnoses Not on filedocumented in this encounter Care Teams Casing Worker Relationship Specialty Start Date End Date Tommy Contreras ND [facility] [place] [address] PCP - General 12/04/13 documented as of this encounter
--- OUTSIDE RECORDS SUMMARY | 2024-03-16 16:02 | XMS_ITS | Encounter Summary ---
Author Organization [facility] [place] [address] Care Team Providers Care [employer] Tm1 Developer Name Role Phone Juan Luis Luevano RHETT Primary Care Provider [phone] Encounter Details Date Type Department Care Team (Late st Contact Info) Description 10/13/2023 11:00 AM EST Office Visit Infectious Disease at [facility] [place] [phone] Franchesca Black, resident doctor advice encounter Social History Tobacco Use Types Packs/Day Years Used Date Smoking Tobacco: Never Sex and Gender Information Value Date Recorded Sex Assigned at Not on file Gender Identity Not on file Sexual Orientation Not on file documented as of this encounter Progress Notes * Franchesca Black RN - 10/13/2023 11:00 AM EST Adult Travel Clinic Reason for Visit: Brigette Camargo is a 28 y.o. female patient who comes to travel clinic today forpre-travel evaluation, vaccination and traveler's health education. Traveler reports no international travel experience. Trip Details: Destination countries (list from first to last [place], [place] [employer] in [place] Departure date: 11/17 Length of trip: little over a week Purpose of travel: [employer] Trip Assisting doctors/patient check ins/Vital Signs Potential exposure to blood and body fluids Will check on HIV exposure prophylaxis-will call if needed and not supplied by [employer] Excursions-Shops/beach Type of environment:Urban Accommodations: Hostels Medical History: Medical problems: There is no problem list on file for this patient. Current Outpatient Medications Medication Sig Dispense Refill SUMAtriptan (IMITREX) 25 mg tablet Take 1 tablet by mouth as needed for Migraine (One at start of headache. May repeat in 1 hour. No more than 2 per day, 4 per week). 10 tablet 3 No current facility-administered medications for this visit. Facility-Administered Medications Ordered in Other Visits Medication Dose Route Frequency Provider Last Rate Last Admin gadopentetate dimeglumine (MAGNEVIST) injection 10.7 mL 0.2 mL/kg/dose Intravenous Once PRN Chrissy Guzmán MD Immunosuppression: Pt denies immunosuppression. Denies history of HIV, transplants, group home steroid use or malignancy with chemotherapy or radiation. History of adverse vaccine reactions: no History of latex, egg or beesting allergy: no Spleen and Thymus gland intact:yes or : NA Patient advised to carry all medications in carry on luggage. Travel Health and Safety Issues: A discussion of travel health hazards and safety issues was done, including the following topics: traffic-accidents (alcohol, seatbelts), crime, alcohol related issues, sun exposure/heat illness, Schistosomiasis and other fresh water exposures, rabies, HIV infections, Hepatitis and other STD's, control, TB, Health Insurance coverage/[employer]. Discussed food and water precautions and patient handout provided. The following strategies were recommended for the management of traveler's diarrhea according to severity: For treatment of mild diarrhea: hydration and over the counter antidiarrheal recommended. For treatment of diarrhea accompanied by fever or systemic illness: hydration and empiric treatmentwith antibiotic recommended. A prescription for Azithromycin 500 mg daily x 3 days sent to pharmacy. Discussed antibiotic use, resistance and colonization issues. Advised to use antibiotics only for more severe symptoms, fever or worsening diarrhea. For severe or bloody diarrhea, or diarrhea accompanied by vomiting: patient advised to seek medicaltreatment. Vector-borne Disease Prevention Discussed insect bite prevention to reduce risk of malaria, dengue, chikungunya and other insect borne illnesses. Handout given. Malaria Risk: No malaria risk on this particular trip. and Malaria risk in country (ies) visited, but not high enough risk on this itinerary to warrant chemoprophylaxis. Altitude: This trip does not involve high altitude. Leptospirosis - Risk exists and is presumed to have widespread distribution. Travelers who anticipate activities with extensive outdoor exposure (e.g., hiking, biking, swimming, or rafting) should consider weekly prophylaxis with doxycycline. Discussed prescription for Doxycycline for Leptospirosisprophylaxis as below, proper usage reviewed, SE and increased sun sensitivity reviewed. Pt declined ZIKA Mode of Transmission Humans in urban transmission areas and nonhuman primates in forested areas of [place] are the main reservoirs of the virus; the establishment of a primate reservoir in the [place] is possible but not proven to date. Aedes aegypti mosquitoes have the highest vectorial capacity to transmit ZIKV and are the primary vector for humans. A. albopictus mosquitoes have a low vectorial capacity but can exist in more temperate areas than A. aegypti, thus extending the potential range where outbreaks may occur. Based on extensive efforts in containing the ZIKV outbreak in [place], a combination of the insecticide naled and the larvicide Bacillus thuringiensis israelensis appears most effective in controlling mosquito populations. See Aedes Mosquito Distribution ([place]) for the Aedes range in the [place]. A. albopictus is widely distributed in [place], and autochthon[facility] Z[facility]. The vectorial capacity of any non-Aedes mosquito species has not been shown. A. aegypti mosquitoes only travel short distances during their lifespan, with a range of about 150 m (500 ft). Due to limits on the vector, mosquito-borne transmission in areas above 2,300 m (7,500 ft) may not occur. Cases of confirmed sexual transmission have been documented in at least 13 countries where vector-borne transmission is not occurring. Transmission can occur via vaginal, anal, or oral sex. Qzvu-xf-rvxici sexual transmission occurs more commonly than sloyra-jf-wjtm or wwqb-oa-xsbf transmission. Only 1 documented case of acauzc-zr-fbwz transmission during vaginal sex has been reported. Transmission by an asymptomatic partner has been documented. The interval between onset of symptoms in the index case and in the sexual partner varies from 4 to 41 days. No longitudinal cohort studies have reported culturable, potentially replication-competent (infectious) ZIKV in semen specimens obtained ? 38days after symptom onset. Live ZIKV usually remains in the blood of an infected person for about 10 days. Prolonged viremia (10 weeks after symptom onset) has been detected in a woman, suggesting ongoing seeding fromthe placenta or fetus, both of which were infected. The viremia resolved upon elective termination of . Infectious particles have also been detected in breast milk and saliva, but transmission from has not been credibly reported; evidence for saliva transmission is circumstantial. Noninfectious ZIKV RNA has been detected in blood, urine, saliva, and seminal fluid, as well as in vaginal secretions, cervical mucus, and breast milk. Late presence of RNA in these fluids likely represents excretion rather than current presence of live virus in that fluid. The median and 95th percentile for the time until the loss of ZIKV RNA detection in serum is 14 days and 54 days, respectively. RNA can be found in urine and saliva for 91 days and in whole blood (not serum) for up to 101 days after symptom onset. In semen, RNA persists for a mean of approximately 54 days and is cleared within 81 days after symptom onset in 95%. In 1 outlying case, RNA was detected in semen 370 days after onset of febrile illness. ZIKV RNA was detected in the female genital tract in cervical mucus of 1 patient 11 days after onset of symptoms, although the blood and urine samples tested negative. Discussed above. Brigette states that she just had eggs harvested and will be waiting 6 months afterthe trip to attempt contraception. Immunizations Immunization History Administered Date(s) Administered Covid-19 Vaccine, Unknown Formulation 11/27/2020, 12/25/2020, 08/03/2022 DT 11/24/2008 DTP 1995, 1995, 1995, 09/18/1996, 10/14/1999 HPV, 9-Valent 04/06/2017 HPV, Quadrivalent 01/29/2016, 04/10/2016 Hepatitis A Vaccine, unspecified formulation 1995, 1995 Hepatitis B Unspecified Formulation 03/19/1996 Hpv, Unspecified Formulation 11/09/2015, 01/29/2016, 04/06/2017 Influenza Unspecified Formulation 07/06/2019, 11/05/2020, 06/18/2021, 08/03/2022, 05/27/2023 MMR Vaccine, Live 09/18/1996, 11/01/1999 Meningococcal Conjugate 01/22/2013 Oral Poliovirus Vaccine, Unknown Formulation 1995, 1995, 1995, 10/14/1999 Rabies Vaccine, Unspecified Formulation 04/19/2019, 04/26/2019, 05/10/2019 Tdap Vaccine 11/05/2020, 11/05/2020 Varivax Varicella Vaccine, LIVE 07/14/1998, 01/22/2013 Immunizations given today- Hep A, Typhoid VICP, Rabies (requested as she is a blocker hand and her titer resulted low) Traveler is up to date with routine vaccinations including: Hep B, Tdap 2020, Influenza Rabies- discussed animal avoidance, wound care and need for post-exposure prophylaxis. Traveler given an official International Certificate of Vaccine or Prophylaxis (ICVP) for vaccine(s) received, and advised to carry original card with travel. Follow-up Recommendations: Advised traveler to contact [facility] if travel plans change or other concerns arise. Patient advised to call travel clinic if they return from trip with any illness. Time spent in travel counselin minutes. Vaccine information sheets given. documented in this encounter Plan of Treatment Not on file documented as of this encounter Visit Diagnoses Diagnosis Travel advice encounter documented in this encounter Care Teams C[employer] Tm1 Developer Relationship Specialty Start Date End Date Juan Luis Luevano DNP [address] [place] [address] [place] [address] PCP - General Family Medicine 07/07/23 documented as of this encounter
--- OUTSIDE RECORDS SUMMARY | 2024-03-16 16:02 | XMS_ITS | Encounter Summary ---
[place] [address] Care Team Providers Care Sports Writer Name Role Phone Juan Luis Luevano RHETT Primary Care Provider [phone] Reason for Referral * Diagnostic Test (Routine) - Pending Review Specialty Diagnoses / Procedures Referred By Contac t Referred To Contact Radiology Diagnoses Primary female infertility Procedures US Ovulation Induction Stacia Larkin MD [address] [address] [place] [address] Referral ID Status Reason Start Date Expiration Date Visits Requested Visits Authorized [id number] Pending Review Specialty Service Requested 3 12/24/2024 1 1 Reason for Visit * Diagnostic Test (Routine) - Pending Review Specialty Diagnoses / Procedures Referred By Contac t Referred To Contact Radiology Diagnoses Primary female infertility Procedures US Ovulation Induction Stacia Larkin MD [address] [place] [address] [place] [address] Referral ID Status Reason Start Date Expiration Date Visits Requested Visits Authorized [id number] Pending Review Specialty Service Requested 3 12/24/2024 1 1 Encounter Details Date Type Department Care Team (Latest Contact Info) Description 07/07/2023 8:16 AM EST - 07/07/2023 11:59 PM EST Hospital [place] [address] Stacia Larkin MD [facility] [address] [place] [address] Primary female infertility Discharge Disposition: Home Social [...] Associated Diagnosis Comments US OVULATION INDUCTION Routine 07/07/2023 8:40 AM EST Primary female infertility documented in this encounter Results * US Ovulation Induction (07/07/2023 8:40 AM EST) Anatomical Region Laterality Modality Abdomen, Pelvis Ultrasound 07/07/2023 8:38 AM EST Impressions 07/07/2023 8:50 AM EST Baseline Pelvic Morphology & Follicular Monitoring - Summary A real time transvaginal ultrasound was performed. Uterus and ovaries are normal. Endometrium: 2.03 mm Small free fluid in the cul-de-sac The individual ovarian follicles are measured in the images obtained and are recorded above. I ??viewed the images and agree with the above interpretation. Electronically signed by: Sahara Deleon MD, [facility] ([phone]), at 07/07/2023 8:44 AM Thank you for letting us participate in the care of this patient. If you are a health care provider and have any questions regarding this report, please contact the number above. For patients who have questions, please contact the health chronic care nurse that requested your imaging first. ??Sahara Deleon, BEKAH [facility] & Dept Chair - Rad Electronically Signed Final Report ?? 07/07/2023 08:49 am Narrative 07/07/2023 8:50 AM EST Follicles Report ?(Signed Final 07/07/2023 08:49 am) PATIENT INFO: ID #: ? [id number] ?: ??[birth year] (28 yrs)(F) Name: ? BRIGETTE MOSS ? Visit Date: 07/07/2023 08:38 am PERFORMED BY: Attending: ?Adrienne VILLAREAL, Sahara Chun Performed By: ? Charisma Trejo RDMS Referred By: ?STACIA LARKIN Location: ? [place] SERVICE(S) PROVIDED: UOI - Ovulation Induction - [id number] INDICATIONS: ANTRAL FOLLICLE COUNT AND SIZE; UTERINE LINING MEASUREMENT, AND ANY OTHER PERTINENT INFORMATION. TECHNIQUE/SCAN QUALITY: Technique: ?? Transducer#: [id number] COMPARISON: No priors for comparison -------- HISTORY: -------- Comment: ?Pt's last day of OCPs is tomorrow, expects menses ? the day following RIGHT OVARY: Size(cm): ?2.9 ?x ??1.5 ? x ??1.6 ?Vol(ml): ?? 3.6 Comment: ?Antral follicle count = 12 RIGHT OVARY FOLLICLES: Follicle # ?? Length(mm) ? Width(mm) ?Height(mm) ? Avg(mm) 1 ?4.7 ?3.8 ?4.3 ?4.3 2 ?4.5 ?3.4 ?4.1 ?4.0 Follicle # ?? Volume(ml) ? Comments 1 ?0.0 2 ?0.0 LEFT OVARY: Size(cm): ?2.7 ?x ??2.3 ? x ??1.7 ?Vol(ml): ?? 5.5 Comment: ?Antral follicle count = 10 LEFT OVARY FOLLICLES: Follicle # ?? Length(mm) ? Width(mm) ?Height(mm) ? Avg(mm) 1 ?4.2 ?3.8 ?4.8 ?4.3 2 ?3.9 ?3.3 ?4.1 ?3.8 Follicle # ?? Volume(ml) ? Comments 1 ?0.0 2 ?0.0 ENDOMETRIUM: Thickness (mm): ?2.03 ------- UTERUS: ------- Position: ?? Anteverted Description: ?? Small amount of fluid in cul-de-sac ?extending into bilateral adnexas Procedure Note Sahara Deleon MD - 07/07/2023 Follicles Report (Signed Final 07/07/2023 08:49 am) PATIENT INFO: ID #: [id number] : [birth year] (28 yrs)(F) Name: BRIGETTE MOSS Visit Date: 07/07/2023 08:38 am PERFORMED BY: Attending: Sahara Deleon MD Performed By: Charisma Trejo RDMS Referred By: STACIA LARKIN Location: [place] SERVICE(S) PROVIDED: UOI - Ovulation Induction - [id number] INDICATIONS: ANTRAL FOLLICLE COUNT AND SIZE; UTERINE LINING MEASUREMENT, AND ANY OTHER PERTINENT INFORMATION. TECHNIQUE/SCAN QUALITY: Technique: Transducer#: [id number] COMPARISON: No priors for comparison -------- HISTORY: -------- Comment: Pt's last day of OCPs is tomorrow, expects menses the day following RIGHT OVARY: Size(cm): 2.9 x 1.5 x 1.6 Vol(ml): 3.6 Comment: Antral follicle count = 12 RIGHT OVARY FOLLICLES: Follicle # Length(mm) Width(mm) Height(mm) Avg(mm) 1 4.7 3.8 4.3 4.3 2 4.5 3.4 4.1 4.0 Follicle # Volume(ml) Comments 1 0.0 2 0.0 LEFT OVARY: Size(cm): 2.7 x 2.3 x 1.7 Vol(ml): 5.5 Comment: Antral follicle count = 10 LEFT OVARY FOLLICLES: Follicle # Length(mm) Width(mm) Height(mm) Avg(mm) 1 4.2 3.8 4.8 4.3 2 3.9 3.3 4.1 3.8 Follicle # Volume(ml) Comments 1 0.0 2 0.0 ENDOMETRIUM: Thickness (mm): 2.03 ------- UTERUS: ------- Position: Anteverted Description: Small amount of fluid in cul-de-sac extending into bilateral adnexas IMPRESSION Baseline Pelvic Morphology & Follicular Monitoring - Summary A real time transvaginal ultrasound was performed. Uterus and ovaries are normal. Endometrium: 2.03 mm Small free fluid in the cul-de-sac The individual ovarian follicles are measured in the images obtained and are recorded above. I viewed the images and agree with the above interpretation. Electronically signed by: Sahara Deleon MD, [facility] ([phone]), at 07/07/2023 8:44 AM Thank you for letting us participate in the care of this patient. If you are a health care provider and have any questions regarding this report, please contact the number above. For patients who have questions, please contact the health chronic care nurse that requested your imaging first. Sahara Deleon, [facility] & Dept Chair - Rad Electronically Signed Final Report 07/07/2023 08:49 am Stacia Larkin MD IMG US PELVIC ORDERA BLES documented in this encounter Visit Diagnoses Diagnosis Primary female infertility Female infertility of unspecified origin documented in this encounter Care Teams Sports Writer Relationship Specialty Start Date End Date Juan Luis Luevano DNP [address] [place] [address] PCP - General Family Medicine 07/07/23 documented as of this encounter
--- OUTSIDE RECORDS SUMMARY | 2024-03-16 16:02 | XMS_ITS | Encounter Summary ---
Author [place] [address] Care Team Providers Care Learning Support Resource Room Teacher Name Role Phone Aura Jay MD Primary Care Provider [phone] Encounter Details Date Type Department Care Team (Latest Contact Info) Description 07/04/2023 Transcribe [place] [phone] Brandan Larkin MD [facility] [address] [place] [address] Primary female infertility Social History Tobacco Use Types Packs/Day Years Used Date Smoking Tobacco: Never Sex and Gender Information Value Date Recorded Sex Assigned at Not on file Gender Identity Not on file Sexual Orientation Not on file documented as of this encounter Plan of Treatment Not on file documented as of this encounter Results * Estradiol (07/07/2023 7:13 AM EST) Estradiol <5 pg/mL [facility] Comment: Reference ranges: Males: Adult: ? 11 to 43 pg/mL Females: Non- females: ?Follicular: ??12-233 pg/mL ?Ovulation: ?? 41-398 pg/mL ?Luteal: ?22-341 pg/mL ?Postmenopausal: ?? <5 - 138 pg/mL females: ?1st trimester: ??154-3243 pg/mL ?2nd trimester: ??1561-99212 pg/mL ?3rd trimester: ??8525- >48558 pg/mL Blood 07/07/2023 7:13 AM EST 07/07/2023 7:19 AM EST Narrative Resulting Agency Comment Spec In Lab Brandan Larkin MD CHEMISTRY ORDERABLES Performing Organization Address [facility] Co de Phone Number [facility] [place] [address] * Progesterone (07/07/2023 7:13 AM EST) Progesterone 0.34 ng/mL [facility] Comment: Reference Range ng/mL: Males: ? < 0.15 Females: Non-: Follicular: ?< 0.19 Luteal: ?4.11 ? 14.50 Ovulation: ? 0.06 ? 4.14 Post menopause: ??< 0.13 : 1st trimester: ?? 11.00 ? 44.30 2nd trimester: ?? 25.40 ? 83.40 3rd trimester: ?? 58.70 ? 214.00 Blood 07/07/2023 7:13 AM EST 07/07/2023 7:19 AM EST Narrative Resulting Agency Comment Spec In Lab Brandan Larkin MD CHEMISTRY ORDERABLES Performing Organization Address [facility] Co de Phone Number [facility] [place] [address] * Beta HCG, quantitative (07/07/2023 7:13 AM EST) Beta Human Chorionic Gonadotropin, Quantitative <1 mlU/ML [facility] Comment: REFERENCE RANGES NON- FEMALE: ??Less [...] - 56,451 ?17 weeks ? 8,175 - 07,868 ?18 weeks ? 8,200 - 40,176 This result was generated using a Octavio Ralf immunoassay. ??Results obtained from other methods or manufacturers cannot be used interchangeably with this method. Blood 07/07/2023 7:13 AM EST 07/07/2023 7:19 AM EST Narrative Resulting Agency Comment Spec In Lab Brandan Larkin MD CHEMISTRY ORDERABLES Performing Organization Address [facility] de Phone Number [facility] [place] [phone] * Luteinizing Hormone (07/07/2023 7:13 AM EST) Luteinizing Hormone 1.7 mlU/ML [facility] Comment: Reference Ranges Male: ? 1.7-8.6 mIU/mL Female ?? Follicular: ?2.4-12.6 mIU/mL ?? Ovulation: ? 14.0-95.6 mIU/mL ?? Luteal: ?1.0-11.4 mIU/mL ?? Postmenopausal: ?7.7-58.5 mIU/mL Blood 07/07/2023 7:13 AM EST 07/07/2023 7:19 AM EST Narrative Resulting Agency Comment Spec In Lab Brandan Larkin MD CHEMISTRY ORDERABLES Performing Organization Address [facility]/ZIP Co de Phone Number [facility] [place] [address] * Follicle Stimulating Hormone (07/07/2023 7:13 AM EST) Follicle Stimulating Hormone 2.4 mlU/ML [facility] Comment: Reference Ranges Male: ? 1.5-12.4 mIU/mL Female ?? Follicular: ?3.5-12.5 mIU/mL ?? Ovulation: ? 4.7-21.5 mIU/mL ?? Luteal: ?1.7-7.7 mIU/mL ?? Postmenopausal: ?25.8-134.8 mIU/mL Blood 07/07/2023 7:13 AM EST 07/07/2023 7:19 AM EST Narrative Resulting Agency Comment Spec In Lab Brandan Larkin MD CHEMISTRY ORDERABLES Performing Organization Address [facility] Co de Phone Number [facility] [place] [address] documented in this encounter Visit Diagnoses Diagnosis Primary female infertility Female infertility of unspecified origin documented in this encounter Care Teams Learning Support Resource Room Teacher Relationship Specialty Start Date End Date Aura Jay MD [facility] [address] [facility] [place] [address] PCP - General 07/06/10 07/06/23 documented as of this encounter
--- OUTSIDE RECORDS SUMMARY | 2024-03-16 16:02 | XMS_ITS | Encounter Summary ---
[place] [address] Care Team Providers Care Adon Name Role Phone Aura Jay MD Primary Care Provider [phone] Encounter Details Date Type Department Care Team (Latest Contact Info) Description 09/12/2010 5:29 PM EST - 09/13/2010 7:16 PM EST Hospital Encounter [place] [address] [place] [address] [place] [address] Discharge Disposition: Home Social History Tobacco Use Types Packs/Day Years Used Date Smoking Tobacco: Never Assessed Sex and Gender Information Value Date Recorded Sex Assigned at Not on file Gender Identity Not on file Sexual Orientation Not on file documented as of this encounter Last Filed Vital Signs Vital Sign Reading Time Taken Comments Blood Pressure - - Pulse - - Temperature - - Respiratory Rate - - Oxygen Saturation - - Inhaled Oxygen Concentration - - Weight 56.3 kg (124 lb 1.9 oz) 09/12/2010 6:29 P M EST Height 160 cm (5' 3) 09/12/2010 6:29 PM EST Body Mass Index 21.99 09/12/2010 6:29 PM EST Body Mass Index Percentile 71.33% 09/12/2010 6:2 9 PM EST Growth Chart: CDC (Girls, 2- 20 Years) documented in this encounter Medications at Time of Discharge Medication Sig Dispensed Refills Start Date End Date amoxicillin-clavulanate (AUGMENTIN) 875-125 mg per tablet 1 Tablet(s), PO, Twice daily 09/13/2010 06/22/2011 documented as of this encounter Plan of Treatment Not on file documented as of this encounter Visit Diagnoses Not on filedocumented in this encounter Active and Recently Administered Medications Care Teams Adon Relationship Specialty Start Date End Date Aura Jay MD [facility] [place] [address] PCP - General 07/06/10 07/06/23 documented as of this encounter
--- OUTSIDE RECORDS SUMMARY | 2024-03-16 16:02 | XMS_ITS | Referral Summary ---
Author Organization [facility] Address [address] [place] [address] Care Team Providers Care Agricultural Scientist Name Role Phone Tommy Contreras ND Primary Care Provider [phone] Medications Medication Sig Dispensed Refills Start Date End Date Status UNKNOWN TO PATIENT Active Social History Tobacco Use Types Packs/Day Years Used Date Smoking Tobacco: Never Alcohol Use Standard Drinks/Week Comments No 0 (1 standard drink = 0.6 oz pur e alcohol) Sex and Gender Information Value Date Recorded Sex Assigned at Not on file Gender Identity Not on file Sexual Orientation Not on file Last Filed Vital Signs Vital Sign Reading [...] 20.19 09/18/2014 0722 EST Plan of Treatment Not on file Care Teams Agricultural Scientist Relationship Specialty Start Date End Date Tommy Contreras ND [address] [place] [address] PCP - General 12/04/13
--- OUTSIDE RECORDS SUMMARY | 2024-03-16 16:02 | XMS_ITS | Encounter Summary ---
Author Organization [facility] [place] [address] Care Team Providers Care Laser Operator Name Role Phone Juan Luis Luevano DNP Primary Care Provider [phone] Encounter Details Date Type Department Care Team (Latest Contact Info) Description 07/07/2023 6:55 AM EST Laboratory Appointment Lab [address] [place] [id number] Primary female infertility Social History Tobacco Use Types Packs/Day Years Used Date Smoking Tobacco: Never Sex and Gender Information Value Date Recorded Sex Assigned at Not on file Gender Identity Not on file Sexual Orientation Not on file documented as of this encounter Plan of Treatment Not on file documented as of this encounter Procedures Procedure Name Priority Date/Time Associated Diagnosis Comments PROGESTERONE STAT 07/07/2023 7:13 AM EST Primary female infertility ESTRADIOL STAT 07/07/2023 7:13 AM EST Primary female infertility BETA HCG, QUANTITATIVE STAT 07/07/2023 7:13 AM EST Primary female infertility LUTEINIZING HORMONE STAT 07/07/2023 7 :13 AM EST Primary female infertility FOLLICLE STIMULATING HORMONE STAT 07/07/2023 7:13 AM EST Primary female infertility documented in this encounter Results * Follicle Stimulating Hormone (07/07/2023 7:13 AM EST) Follicle Stimulating Hormone 2.4 mlU/ML [facility] Comment: Reference Ranges Male: ? 1.5-12.4 mIU/mL Female ?? Follicular: ?3.5-12.5 mIU/mL ?? Ovulation: ? 4.7-21.5 mIU/mL ?? Luteal: ?1.7-7.7 mIU/mL ?? Postmenopausal: ?25.8-134.8 mIU/mL Blood 07/07/2023 7:13 AM EST 07/07/2023 7:19 AM EST Narrative Resulting Agency Comment Spec In Lab Brandan Larkin MD CHEMISTRY ORDERABLES Performing Organization Address [facility] de Phone Number [facility] [place] [address] * Luteinizing Hormone (07/07/2023 7:13 AM EST) Luteinizing Hormone 1.7 mlU/ML [facility] Comment: Reference Ranges Male: ? 1.7-8.6 mIU/mL Female ?? Follicular: ?2.4-12.6 mIU/mL ?? Ovulation: ? 14.0-95.6 mIU/mL ?? Luteal: ?1.0-11.4 mIU/mL ?? Postmenopausal: ?7.7-58.5 mIU/mL Blood 07/07/2023 7:13 AM EST 07/07/2023 7:19 AM EST Narrative Resulting Agency Comment Spec In Lab Brandan Larkin MD CHEMISTRY ORDERABLES Performing Organization Address [facility] de Phone Number [facility] [place] [address] * Beta HCG, quantitative (07/07/2023 7:13 AM EST) Beta Human Chorionic Gonadotropin, Quantitative <1 mlU/ML [facility] Comment: REFERENCE RANGES NON- FEMALE: ??Less [...] ? 8,175 - 07,868 ?18 weeks ? 8,356 - 09,176 This result was generated using a Octavio Ralf immunoassay. ??Results obtained from other methods or manufacturers cannot be used interchangeably with this method. Blood 07/07/2023 7:13 AM EST 07/07/2023 7:19 AM EST Narrative Resulting Agency Comment Spec In Lab Brandan Larkin MD CHEMISTRY ORDERABLES [facility] [place] [address] * Progesterone (07/07/2023 7:13 AM EST) Progesterone 0.34 ng/mL [facility] Comment: Reference Range [...] Larkin MD CHEMISTRY ORDERABLES Performing Organization Address City/[facility] Co de Phone Number [facility] [place] [address] * Estradiol (07/07/2023 7:13 AM EST) Estradiol <5 pg/mL [facility] Comment: Reference ranges: Males: Adult: ? 11 to 43 pg/mL Females: Non- females: ?Follicular: ??12-233 pg/mL ?Ovulation: ?? 41-398 pg/mL ?Luteal: ?22-341 pg/mL ?Postmenopausal: ?? <5 - 138 pg/mL females: ?1st trimester: ??154-3243 pg/mL ?2nd trimester: ??1561-09421 pg/mL ?3rd trimester: ??8525- >45353 pg/mL Blood 07/07/2023 7:13 AM EST 07/07/2023 7:19 AM EST Narrative Resulting Agency Comment Spec In Lab Brandan Larkin MD CHEMISTRY ORDERABLES Performing Organization Address [facility] Co de Phone Number [facility] [place] [address] documented in this encounter Visit Diagnoses Diagnosis Primary female infertility Female infertility of unspecified origin documented in this encounter Care Teams Laser Operator Relationship Specialty Start Date End Date Juan Luis Luevano DNP [address] [address] PCP - General Family Medicine 07/07/23 documented as of this encounter
--- OUTSIDE RECORDS SUMMARY | 2024-03-16 16:02 | XMS_ITS | Encounter Summary ---
[place] [address] Care Team Providers Care Steel Roller Name Role Phone Juan Luis Luevano DNP Primary Care Provider [phone] Encounter Details Date Type Department Care Team (Latest Contact Info) Description 07/17/2023 Travel Social History Tobacco Use Types Packs/Day Years Used Date Smoking Tobacco: Never Sex and Gender Information Value Date Recorded Sex Assigned at Not on file Gender Identity Not on file Sexual Orientation Not on file documented as of this encounter Plan of Treatment Not on file documented as of this encounter Visit Diagnoses Not on filedocumented in this encounter Care Teams Steel Roller Relationship Specialty Start Date End Date Juan Luis Luevano DNP [address] [place] [id number] PCP - General Family Medicine 07/07/23 documented as of this encounter
--- OUTSIDE RECORDS SUMMARY | 2024-03-16 16:02 | XMS_ITS | Clinical Summary ---
Author Organization [facility] [place] [address] Care Team Providers Care Account Advisor Name Role Phone Juan Luis Luevano Lalitomorgan RHETT Primary Care Provider [phone] Allergies No known active allergies Medications Medication Sig Dispensed Refills Start Date End Date Status UNABLE TO FIND Oral contraception Ac tive Immunizations Name Administration Dates Next Due Covid-19 Vaccine, Unknown Formulation 08/03/2022 ,12/25/2020,11/27/2020 DT 11/24/2008 DTP 10/14/1999, 7,1995,10/17,1995 HPV, 9-Valent (Gardasil 9) 04/06/2017 HPV, Quadrivalent (Gardasil) 04/10/2016,01/29/20 16 Hepatitis A Adult (HavRix, Vaqta) 10/13/2023 Hepatitis A, Unspecified Formulation 1995, 1995 Hepatitis B Unspecified Formulation 03/19/1996 Hpv, Unspecified Formulation 04/06/2017,01/29/20 16,11/09/2015 Influenza Unspecified Formulation 2022,08/03/2022,06/18/2021,11/05,07/06/2019 MMR Vaccine LIVE 11/01/1999,09/18/1996 Meningococcal Conjugate 01/22/2013 Oral Poliovirus Vaccine, Unk nown Formulation 10/14/1999,1995,1995,08/18 Rabies Vaccine, IM Fibroblast 10/13/2023 Rabies Vaccine, Unspecified Formulation 05/10/2019,04/26/2019,04/19/2019 Tdap 11/05/2020,11/05/2020 Typhoid, VICP 10/13/2023 Varicella (Varivax) LIVE 01/22/2013,07/14/1998 Social History Tobacco Use Types Packs/Day Years [...] - Inhaled Oxygen Concentration - - Weight 53.5 kg (118 lb) 08/17/2012 6:23 AM EST Height 161.5 cm (5' 3.58) 06/22/2011 9:04 AM ES T Body Mass Index - - Plan of Treatment Health Maintenance Due Date Last Done Comments Hepatitis B vaccine (0-59 yr s) (2) 04/16/1996 03/19/1996 HIV screen 2013 Hepatitis C Screening 2013 PAP Smear 2016 Covid-19 Vaccine (4 - 2022-2 4 season) 2023 08/03/2022, 12/25/2020, 11/27/2020 Influenza (Flu) vaccine (1 o f 1 - Influenza standard series) 04/14/2024 05/27/2023, 08/03/2022, 06/18/2021, Additional history exists Tetanus vaccine 11/05/2030 11/05/2020, 10/13, 11/24/2008, Additional history exists HPV vaccine Completed 04/06/2017, 03/15, 04/10/2016, Additional history exists Tdap adult Completed 11/05/2020, 11/05/2020 Care Teams Account Advisor Relationship Specialty Start Date End Date Juan Luis Luevano DNP [address] [place] [id number] PCP - General Family Medicine 07/07/23
--- OUTSIDE RECORDS SUMMARY | 2024-03-16 16:02 | XMS_ITS | Encounter Summary ---
Author Organization [facility] [place] [address] Care Team Providers Care Floor Sanding Machine Operator Name Role Phone Juan Luis Luevano DNP Primary Care Provider [phone] Encounter Details Date Type Department Care Team (Late st Contact Info) Description 10/13/2023 Orders [place] [address] Daisy Black MD [facility] [place] [address] Travel advice encounter Social History Tobacco Use [...] encounter documented in this encounter Care Teams Floor Sanding Machine Operator Relationship Specialty Start Date End Date Juan Luis Luevano DNP [address] [place] [id number] PCP - General Family Medicine 07/07/23 documented as of this encounter
--- OUTSIDE RECORDS SUMMARY | 2024-03-16 16:02 | XMS_ITS | Encounter Summary ---
Author Organization [facility] Address [address] [place] [address] Care Team Providers Care Director Of Surgery Name Role Phone Tommy Contreras ND Primary Care Provider [phone] Reason for Visit * Reason Comments Laceration left index finger la ceration/avulsion finger pinched in grate in milking parlor, dT UTD , Encounter Details Date Type Department Care Team (Late st Contact Info) Description 09/18/2014 7:16 EST - 09/18/2014 7:56 EST Emergency [facility] Emergency Department - Main [place] [address] [place] [address] Edwin Balderas, HAFSA [address] [place] [address] Emergency, MD Edward Fingertip avulsion (Primary Dx); Subungual hematoma of finger Discharge Disposition: Home or Self Care Social [...] Time Taken Comments Blood Pressure 131/81 09/18/2014 07 EST Pulse 103 09/18/2014 07 EST Temperature 37.4 ??C (99.3 ??F) 09/18/2014 07 EST Respiratory Rate 14 09/18/2014 0719 EST Oxygen Saturation 100% 09/18/2014 07 EST Inhaled Oxygen Concentration - - Weight 51.7 kg (114 lb) 09/18/2014 07 EST Height 160 cm (5' 3) 09/18/2014 0722 EST Body Mass Index 20.19 09/18/2014 0722 EST documented in this encounter Discharge Instructions * Discharge Instructions* Edwin Balderas PA - 09/18/2014 7:45 EST Exam today shows avulsion of first several layers of the skin over the left second fingertip, as well as a subungual hematoma (blood underneath her nail). Skin flap was debrided and cleansed. Wash gently with soap and water daily and keep it bandaged and clean over the next week until healed. Applybacitracin twice daily. Fingernail may or may not follow off, but will regrow regardless. Use Motrin or Tylenol as needed for discomfort. Return immediately for worsening or uncontrolled symptoms, otherwise followup with your PCP. documented in this encounter Medications at Time of Discharge Medication Sig Dispensed Refills Start Date End Date UNKNOWN TO PATIENT documented as of this encounter Discharge Disposition Disposition Code Departure Means Destination Home or Self Care documented in this encounter ED Notes * Christel Dela Cruz RN - 09/18/2014 0756 EST Dressing applied by ED EMT * Mary Lou Fernando - 09/18/2014 0753 EST Bacitracin, telfa, tube gauze applied to left index finger. * Edwin Balderas PA - 09/18/2014 0745 EST DOS: 09/18/2014 Chief Complaint Patient presents with ??? Laceration left index finger laceration/avulsion finger pinched in grate in [facility] Jaime gallagher , The patient is a 19 y.o. female who presents today with Laceration HPI Comments: Chief complaint of left index finger injury. Patient was working with a cow when the cow lifted a grate with her, catching the patient's finger, resulting in an avulsion. Patient did not have her finger crushed, but it was struck by the grate or the cow. Patient denies numbness and tingling, other injuries, up-to-date on tetanus booster. The history is provided by the patient. Laceration Review of Systems All other systems reviewed and are negative. No past medical history on file. Past Surgical History Procedure Laterality Date ??? [place] tooth extraction Not on File History Substance Use Topics ??? Smoking status: Never Smoker ??? Smokeless tobacco: Not on file ??? Alcohol Use: No No family history on file. Vital Signs Temp: 37.4 ??C (99.3 ??F) Temp src: Oral Pulse: 103 Resp: 14 SpO2: 100 % BP: 131/81 mmHg BP Device: BP Machine Patient Position: Sitting BP Cuff Location: Right arm O2 Device: None (Room air) Physical Exam Vitals reviewed. Constitutional: She is oriented to person, place, and time. She appears well- developed and well-nourished. No distress. HENT: Head: Normocephalic and atraumatic. Eyes: Pupils are equal, round, and reactive to light. Pulmonary/Chest: Effort normal. Musculoskeletal: Normal range of motion. She exhibits tenderness. On exam, patient has a subungual hematoma of the left second finger nail, involving approximately one third of the nail. She also has partially avulsed most of the superficial layers of the skin overthe fingertip pad. There is no complete thickness laceration of the skin. Neurological: She is alert and oriented to person, place, and time. Skin: Skin is warm. Psychiatric: Her behavior is normal. Judgment and thought content normal. Radiology orders: None Imaging Results None Procedures ED Course: A medical screening exam was performed. Patient has a left second finger partial subungual hematomaand an avulsed fingertip with a partial-thickness flap. Flap debrided and a finger cleansed, bacitracin and bandage applied. Disposition: Discharged The patient's pain was managed to an adequate level weighing risk vs. benefit of further medications. Upon departure from the Emergency Department, the patient's pain was 1 on a zero to ten scale. Condition at departure from the Emergency Department: Stable ED Current Prescriptions None MDM Number of Diagnoses or Management Options Fingertip avulsion: Subungual hematoma of finger: Diagnosis management comments: 2 Amount and/or Complexity of Data Reviewed Review and summarize past medical records: yes Final diagnoses: Fingertip avulsion Subungual hematoma of finger PCP: CHARO Arellano 09/18/2014 7:56 No flowsheet data found. documented in this encounter Plan of Treatment Not on file documented as of this encounter Visit Diagnoses Diagnosis Fingertip avulsion- Primary Traumatic amputation of other finger(s) (complete) (partial), without mention of complication Subungual hematoma of finger Contusion of finger documented in this encounter Historical Medications * This list may reflect changes made after this encounter. Medication Sig Dispensed Refills Start Date End Date UNKNOWN TO PATIENT added in this encounter Care Teams Director Of Surgery Relationship Specialty Start Date End Date Tommy Contreras ND [address] [place] [id number] PCP - General 12/04/13 documented as of this encounter
--- OUTSIDE RECORDS SUMMARY | 2024-03-16 16:02 | XMS_ITS | Encounter Summary ---
Author Organization [facility] Address [address] [place] [address] Care Team Providers Care Waiter And Cashier Name Role Phone Unknown, Provider Primary Care Provider [phone] Encounter Details Date Type Department Care Team (Late st Contact Info) Description 11/29/2013 Results Only [facility]- [facility] [phone] Rebecca Funes ND [address] [place] [address] Social History Tobacco Use Types Packs/Day Years Used Date Smoking Tobacco: Never Assessed Sex and Gender Information Value Date Recorded Sex Assigned at Not on file Gender Identity Not on file Sexual Orientation Not on file documented as of this encounter Plan of Treatment Pending Results Name Type Priority Associated Diagnoses Date /Time HEMAGRAM AND DIFFERENTIAL Lab Routine 11/29/2013 8:52 EDT documented as of this encounter Procedures Procedure Name Priority Date/Time Associated Diagnosis Comments TRANSFERRIN SATURATION Routine 4 8:52 EDT DIFFERENTIAL Routine 11/29/2013 8:52 EDT ESTROGENS, ESTRONE (E1) AND ESTRADIOL (E2), FRACTIONATED, SERUM Routine 11/29/2013 8:52 EDT PROGESTERONE Routine 11/29/2013 8:52 EDT COMPLETE BLOOD COUNT Routine 11/29/2013 8:52 EDT T3 FREE Routine 11/29/2013 8:52 EDT TSH Routine 11/29/2013 8:52 EDT T4 Routine 11/29/2013 8:52 EDT FERRITIN Routine 11/29/2013 8:52 EDT LIPID PROFILE (INCLUDES CHOLESTEROL, TRIGLYCERIDES, HDL, LDL) Routine 11/29/2013 8:52 EDT COMPREHENSIVE METABOLIC PANEL (CMP) Routine 11/29/2013 8:52 EDT documented in this encounter Results * DIFFERENTIAL (11/29/2013 8:52 EDT) % Neutrophils 63.5 45.5 - 79.7 % [facility] % Lymphocytes 27.5 15.0 - 46.8 % [facility] % Monocytes 7.4 1.8 - 12.0 % [facility] % Eosinophils 0.7 0.6 - 6.9 % [facility] % Basophils 0.9 0.2 - 1.4 % [facility] ABS Neutrophils 3.28 2.20 - 8.85 K/cmm [facility] ABS Lymphs 1.42 1.09 - 3.30 K/cmm [facility] ABS Monocytes 0.38 0.1 - 0.8 K/cmm [facility] ABS Eosinophils 0.04 0.03 - 0.61 K/cmm [facility] ABS Basophils 0.05 0.01 - 0.11 K/cmm [facility] Type of Diff: Automated [facility] 11/29/2013 8:52 EDT 11/29/2013 13:50 EDT Rebecca Funes ND HEMATOLOGY & PF4 ORD ERABLES [facility] [address] [place] [address] * HEMAGRAM (11/29/2013 8:52 EDT) WBC 5.16 4.0 - 12.4 K/cmm [facility] RBC 4.62 3.86 - 5.04 M/cmm [facility] Hemoglobin 13.1 11.6 - 15.2 gm/dl [facility] HCT 39.2 34.9 - 44.4 % [facility] MCV 85 81 - 98 fl [facility] MCH 28.4 26.7 - 33.3 pg [facility] MCHC 33.5 32.1 - 35.9 gm/dl [facility] PLT 242 141 - 320 K/cmm [facility] RDW-CV 13.6 11.7 - 14.6 % [facility] 11/29/2013 8:52 EDT 11/29/2013 13:50 EDT Rebecca Funes ND HEMATOLOGY & PF4 ORD ERABLES Performing Organization Address [facility] Co de Phone Number [facility] [address] [place] [address] * TSH (11/29/2013 8:52 EDT) TSH 1.00 0.35 - 5.00 uIU/ml [facility] 11/29/2013 8:52 EDT 11/29/2013 13:50 EDT Rebecca Funes ND CHEMISTRY & BLOOD GA S ORDERABLES Performing Organization Address [facility] de Phone Number [facility] [address] [place] [address] * TRANSFERRIN SATURATION (11/29/2013 8:52 EDT) Iron 103 37 - 170 ug/dl [facility] TIBC 449 265 - 497 ug/dl [facility] Iron Saturation 23 20 - 55 % [facility] 11/29/2013 8:52 EDT 11/29/2013 13:50 EDT Rebecca Funes ND CHEMISTRY & BLOOD GA S ORDERABLES Performing Organization Address [facility] Co de Phone Number [facility] [address] [place] [address] * T4 (11/29/2013 8:52 EDT) T4, Total 6.3 4.5 - 10.9 ug/dL [facility] 11/29/2013 8:52 EDT 11/29/2013 13:50 EDT Rebecca Funes ND CHEMISTRY & BLOOD GA S ORDERABLES Performing Organization Address [facility] Phone Number [facility] [address] [place] [address] * PROGESTERONE (11/29/2013 8:52 EDT) Progesterone 0.8 ng/ml [facility] Comment: NON- FEMALES: follicular phase: 0.2-1.4 ng/ml luteal phase: 3.3-25.6 ng/ml mid luteal phase: 4.4-28.0 ng/ml postmenopausal: <0.1-0.7 ng/ml FEMALES: first trimester: 11.2-90.0 ng/ml second trimester: 25.6-89.4 ng/ml third trimester: 48.4-422.5 ng/ml ECTOPIC PREGNANCIES: consult pathologist 11/29/2013 8:52 EDT 11/29/2013 13:50 EDT Rebecca Funes ND CHEMISTRY & BLOOD GA S ORDERABLES Performing Organization Address [facility] [place] [address] * LIPID PROFILE (INCLUDES CHOLESTEROL, TRIGLYCERIDES, HDL, LDL) (11/29/2013 8:52 EDT) Cholesterol 109 mg/dl [facility] Comment: Desirable:<200 Borderline High:200-239 High:>pk=978 Triglycerides 48 mg/dl [facility] Comment: Normal:<150 Borderline High:150-199 High:200-499 Very High:>hb=193 HDL 46 mg/dl [facility] Comment: Low:<40 Normal:40-60 Desirable: >60 LDL, Calculated 53 mg/dl [facility] Comment: Optimal:<100 Near Optimal:100-129 Borderline High:130-159 High:160-189 Very High:>tq=634 Chol/HDL Ratio 2.4 [facility] Fasting? Unknown [facility] Non HDL Cholesterol 63 mg/dl [facility] Comment: Desirable:<130 Borderline:130-159 High: 160-189 Very High: >ml=592 11/29/2013 8:52 EDT 11/29/2013 13:50 EDT Rebecca Funes ND CHEMISTRY & BLOOD GA S ORDERABLES Performing Organization Address [facility] de Phone Number [facility] [address] [place] [address] * T3 FREE (11/29/2013 8:52 EDT) T3, Free 3.0 2.3 - 4.2 pg/mL [facility] 11/29/2013 8:52 EDT 11/29/2013 13:50 EDT Rebecca Funes ND CHEMISTRY & BLOOD GA S ORDERABLES Performing Organization Address [facility] Phone Number [facility] [address] [place] [address] * (ABNORMAL) FERRITIN (11/29/2013 8:52 EDT) Ferritin 8(L) 10 - 291 ng/mL [facility] 11/29/2013 8:52 EDT 11/29/2013 13:50 EDT Rebecca Funes ND CHEMISTRY & BLOOD GA S ORDERABLES Performing Organization Address [facility] de Phone Number [facility] [address] [place] [address] * ESTROGENS, ESTRONE (E1) AND ESTRADIOL (E2), FRACTIONATED, SERUM (11/29/2013 8:52 EDT) Estrone 40 pg/mL [facility] Comment: (Note) -- REFERENCE VALUE -- Premenopausal :17-200 Postmenopausal : 7-40 Estradiol, Serum 47 pg/mL [facility] Comment: (Note) -- REFERENCE VALUE -- Premenopausal: 15-350 (E2 levels vary widely through the menstrual cycle.) Postmenopausal: <10 Performed or Referred by: [facility] Labs: [facility], [address] [facility], [place] [address], Lab Dir: Bear Rojas III, MD 11/29/2013 8:52 EDT 11/29/2013 13:50 EDT Rebecca Funes ND CHEMISTRY & BLOOD GA S ORDERABLES [facility] [address] [place] [address] * (ABNORMAL) COMPREHENSIVE METABOLIC PANEL (CMP) (11/29/2013 8:52 EDT) Potassium 4.5 3.5 - 5.0 mEq/L [facility] Sodium 143 136 - 145 mEq/L [facility] Chloride 103 96 - 110 mEq/L [facility] CO2 26 24 - 32 mEq/L [facility] Total Alkaline Phosphatase 27(L) 38 - 126 U/L [facility] Bilirubin, Total 0.9 <1.4 mg/dl [facility] AST 20 15 - 46 U/L [facility] ALT 25 9 - 52 U/L [facility] Albumin 4.8 3.4 - 4.9 g/dl [facility] Total Protein 7.4 6.5 - 8.3 g/dl [facility] Creatinine 0.52 0.52 - 1.04 mg/dl [facility] GFR, Calculated >60 >60 ml/min/1.7 3m2 [facility] BUN 16 10 - 26 mg/dl [facility] Calcium 9.7 8.5 - 10.5 mg/dl [facility] Calculated Calcium 9.3 8.5 - 10.5 mg/dl [facility] Glucose, Serum 74 70 - 100 mg/dl [facility] Fasting? Unknown [facility] 11/29/2013 8:52 EDT 11/29/2013 13:50 EDT Rebecca L Funes ND CHEMISTRY & BLOOD GA S ORDERABLES [facility] [address] [place] [address] documented in this encounter Visit Diagnoses Not on filedocumented in this encounter Care Teams Waiter And Cashier Relationship Specialty Start Date End Date Unknown, Provider, PCP - General 11/29/13 12/03/13 documented as of this encounter
== END 2024-03-16 15:53 | disposition home or self-care (01) ==
LOC: LBN 15:52
PROVIDERS: PCP Nurse Practitioner Family; Visit Provider Nurse Practitioner Family
DX: R10.31 Right lower quadrant pain (principal); R10.13 Epigastric pain

== ENCOUNTER 2024-03-22 13:10 | Outpatient (REF) | payer BC, SELFPAY ==
--- OUTSIDE RECORDS SUMMARY | 2024-03-22 13:15 | XMS_ITS | Encounter Summary ---
[place] [address] Care Team Providers Care Employee Operations Examiner Name Role Phone Juan Luis Luevano DNP Primary Care Provider [phone] Encounter Details Date Type Department Care Team [...] on filedocumented in this encounter Care Teams Employee Operations Examiner Relationship Specialty Start Date End Date Juan Luis Luevano DNP [address] [place] [address] PCP - General Family Medicine 07/07/23 documented as of this encounter
--- OUTSIDE RECORDS SUMMARY | 2024-03-22 13:15 | XMS_ITS | Clinical Summary ---
Author Organization [facility] [address] Care Team Providers Care Motorized Squad Commanding Officer Name Role Phone Juan Luis Luevano Lalitomorgan RHETT Primary Care Provider [phone] Allergies No known active allergies Medications Medication [...] Tdap adult Completed 11/05/2020, 11/05/2020 Care Teams Motorized Squad Commanding Officer Relationship Specialty Start Date End Date Juan Luis Luevano DNP [address] [place] [address] PCP - General Family Medicine 07/07/23
--- OUTSIDE RECORDS SUMMARY | 2024-03-22 13:15 | XMS_ITS | Encounter Summary ---
[place] [address] Care Team Providers Care Kettle Girl Name Role Phone Juan Luis Luevano DNP Primary Care Provider [phone] Encounter Details Date Type Department Care Team [...] on filedocumented in this encounter Care Teams Kettle Girl Relationship Specialty Start Date End Date Juan Luis Luevano DNP [address] [place] [address] PCP - General Family Medicine 07/07/23 documented as of this encounter
--- OUTSIDE RECORDS SUMMARY | 2024-03-22 13:15 | XMS_ITS | Encounter Summary ---
[place] [address] Care Team Providers Care Poker Room Manager Name Role Phone Juan Luis Luevano DNP Primary Care Provider [phone] Encounter Details Date Type Department Care Team [...] on filedocumented in this encounter Care Teams Poker Room Manager Relationship Specialty Start Date End Date Juan Luis Luevano DNP [address] [place] [address] PCP - General Family Medicine 07/07/23 documented as of this encounter
--- OUTSIDE RECORDS SUMMARY | 2024-03-22 13:15 | XMS_ITS | Encounter Summary ---
Author Organization [facility] [place] [address] Care Team Providers Care Auto Top Mechanic Name Role Phone Juan Luis Luevano DNP Primary Care Provider [phone] Encounter Details Date Type Department Care Team (Latest Contact Info) Description 07/17/2023 6:55 AM EST Laboratory Appointment Lab [address] [place] [phone] Primary female infertility Social History Tobacco Use [...] In Lab Brandan Larkin MD CHEMISTRY ORDERABLES [facility] [place] [address] * Estradiol (07/17/2023 7:06 AM EST) Estradiol 414 pg/mL [facility] Comment: Reference ranges: Males: Adult: ? 11 to 43 pg/mL Females: Non- females: ?Follicular: ??12-233 pg/mL ?Ovulation: ?? 41-398 pg/mL ?Luteal: ?22-341 pg/mL ?Postmenopausal: ?? <5 - 138 pg/mL females: ?1st trimester: ??154-3243 pg/mL ?2nd trimester: ??1561-76171 pg/mL ?3rd trimester: ??8525- >09425 pg/mL Blood 07/17/2023 7:06 AM EST 07/17/2023 7:09 AM EST Narrative Resulting Agency Comment Spec In Lab Brandan Larkin MD CHEMISTRY ORDERABLES Performing Organization Address [facility] Co de Phone Number [facility] [place] [address] * Follicle Stimulating Hormone (07/17/2023 7:06 AM EST) Follicle Stimulating Hormone 24.2 mlU/ML [facility] Comment: Reference Ranges Male: ? 1.5-12.4 mIU/mL Female ?? Follicular: ?3.5-12.5 mIU/mL ?? Ovulation: ? 4.7-21.5 mIU/mL ?? Luteal: ?1.7-7.7 mIU/mL ?? Postmenopausal: ?25.8-134.8 mIU/mL Blood 07/17/2023 7:06 AM EST 07/17/2023 7:09 AM EST Narrative Resulting Agency Comment Spec In Lab Brandan Larkin MD CHEMISTRY ORDERABLES Performing Organization Address [facility] de Phone Number [facility] [place] [address] * Beta HCG, quantitative (07/17/2023 7:06 AM EST) Beta Human Chorionic Gonadotropin, Quantitative <1 mlU/ML [facility] Comment: REFERENCE RANGES NON- FEMALE: ??Less [...] ? 8,175 - 55,868 ?18 weeks ? 8,113 - 06,798 This result was generated using a Octavio Ralf immunoassay. ??Results obtained from other methods or manufacturers cannot be used interchangeably with this method. Blood 07/17/2023 7:06 AM EST 07/17/2023 7:09 AM EST Narrative Resulting Agency Comment Spec In Lab Brandan Larkin MD CHEMISTRY ORDERABLES Performing Organization Address [facility] de Phone Number [facility] [place] [address] * Progesterone (07/17/2023 7:06 AM EST) Progesterone 0.76 ng/mL [facility] Comment: Reference Range ng/mL: [...] Larkin MD CHEMISTRY ORDERABLES Performing Organization Address [facility] Co de Phone Number [facility] [place] [address] documented in this encounter Visit Diagnoses Diagnosis Primary female infertility Female infertility of unspecified origin documented in this encounter Care Teams Auto Top Mechanic Relationship Specialty Start Date End Date Juan Luis Luevano DNP [address] [place] [address] PCP - General Family Medicine 07/07/23 documented as of this encounter
--- OUTSIDE RECORDS SUMMARY | 2024-03-22 13:15 | XMS_ITS | Encounter Summary ---
Author Organization [facility] [place] [address] Care Team Providers Care Preflight Mechanic Name Role Phone Juan Luis Luevano RHETT Primary Care Provider [phone] Encounter Details Date Type Department Care Team (Late st Contact Info) Description 10/13/2023 11:00 AM EST Office Visit Infectious Disease at [facility] [place] [phone] Franchesca Black, assistant professor of biochemistry advice encounter Social History Tobacco Use Types [...] to last [place], [place] Lay[place] in [place] Departure date: 11/17 Length of trip: little over a week Purpose of travel: Med Life Trip Assisting doctors/patient check ins/Vital Signs Potential exposure to blood and body fluids Will check on HIV exposure prophylaxis-will call if needed and not supplied by [facility] Com Excursions-Shops/beach Type of environment:Urban Accommodations: Hostels Medical [...] denies immunosuppression. Denies history of HIV, transplants, long-term steroid use or malignancy with chemotherapy or [...] efforts in containing the ZIKV outbreak in [place], a combination of the insecticide naled and the larvicide Bacillus thuringiensis israelensis appears most effective in controlling mosquito populations. See Aedes Mosquito Distribution ([place]) for the Aedes range in the [place]. A. albopictus is widely distributed in [place], and autochthonous transmission of ZIKV [facility]. The vectorial capacity of any non-Aedes [...] occur via vaginal, anal, or oral sex. Kjtt-sf-efqpyr sexual transmission occurs more commonly than alpulx-wo-xniq or jltc-mq-finj transmission. Only 1 documented case of iqymry-fd-aetr transmission during vaginal sex has been reported. 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 Traveler given an official International Certificate of Vaccine or Prophylaxis (ICVP) for vaccine(s) received, and advised to carry original card with travel. Follow-up Recommendations: Advised traveler to contact [facility] if travel plans change or other concerns arise. Patient advised to call travel clinic if they return from trip with any illness. Time spent in travel counselin minutes. Vaccine information sheets given. documented in this encounter Plan of Treatment Not on file documented as of this encounter Visit Diagnoses Diagnosis Travel advice encounter documented in this encounter Care Teams Preflight Mechanic Relationship Specialty Start Date End Date Juan Luis Luevano DNP [address] [place] [address] [place] [address] PCP - General Family Medicine 07/07/23 documented as of this encounter
--- OUTSIDE RECORDS SUMMARY | 2024-03-22 13:15 | XMS_ITS | Encounter Summary ---
[place] [address] Care Team Providers Care Crusher Supervisor Name Role Phone Juan Luis Luevano RHETT Primary Care Provider [phone] Reason for Referral * Diagnostic Test (Routine) - Pending Review Specialty Diagnoses / Procedures Referred By Contac t Referred To Contact Radiology Diagnoses Primary female infertility Procedures US Ovulation Induction Stacia Larkin MD [address] [address] [place] [address] Referral ID Status Reason Start Date Expiration Date Visits Requested Visits Authorized [id number] Pending Review Specialty Service Requested 3 12/24/2024 1 1 Reason for Visit * Diagnostic Test (Routine) - Pending Review Specialty Diagnoses / Procedures Referred By Contac t Referred To Contact Radiology Diagnoses Primary female infertility Procedures US Ovulation Induction Stacia Larkin MD [address] [place] [address] [place] [address] Referral ID Status Reason Start Date Expiration Date Visits Requested Visits Authorized [id number] Pending Review Specialty Service Requested 3 12/24/2024 1 1 Encounter Details Date Type Department Care Team (Latest Contact Info) Description 07/17/2023 7:45 AM EST - 07/17/2023 11:59 PM EST Hospital [place] [phone] Stacia Larkin MD [facility] [address] [place] [address] Primary female infertility Discharge Disposition: Home Social [...] who have questions, please contact the health clinical care leader that requested your imaging first. ? Richar Peñaloza, Staff Physician Electronically Signed Final Report ?? 07/17/2023 08:52 am Narrative 07/17/2023 8:53 AM EST Follicles Report ?(Signed Final 07/17/2023 08:52 am) PATIENT INFO: ID #: ? [id number] ?: ??[birth year] (28 yrs)(F) Name: ? BRIGETTE MOSS ? Visit Date: 07/17/2023 07:56 am PERFORMED BY: Performed By: ? Es Hawkins RDMS Attending: ?Jh VILLAREAL, Richar Rivas Resident: ? Vikram VILLAREAL, Lavinia Chaves Referred By: ?STACIA LARKIN Location: ? [place] SERVICE(S) PROVIDED: UOI - Ovulation Induction - [id number] INDICATIONS: ANTRAL FOLLICLE COUNT AND SIZE; UTERINE [...] 07/17/2023 08:52 am) PATIENT INFO: ID #: [id number] : [birth year] (28 yrs)(F) Name: BRIGETTE MOSS Visit Date: 07/17/2023 07:56 am PERFORMED BY: Performed By: Es Hawkins RDMS Attending: Richar Peñaloza MD Resident: Lavinia Sue MD Referred By: STACIA LARKIN Location: [place] SERVICE(S) PROVIDED: UOI - Ovulation Induction - [id number] INDICATIONS: ANTRAL FOLLICLE COUNT AND SIZE; UTERINE [...] who have questions, please contact the health clinical care leader that requested your imaging first. Richar Peñaloza, Staff Physician Electronically Signed Final Report 07/17/2023 08:52 am Stacia Larkin MD IMG US PELVIC ORDERA BLES documented in this encounter Visit Diagnoses Diagnosis Primary female infertility Female infertility of unspecified origin documented in this encounter Care Teams Crusher Supervisor Relationship Specialty Start Date End Date Juan Luis Luevano DNP [address] [place] [address] PCP - General Family Medicine 07/07/23 documented as of this encounter
--- OUTSIDE RECORDS SUMMARY | 2024-03-22 13:15 | XMS_ITS | Encounter Summary ---
Author Organization [facility] [address] Care Team Providers Care Planning Supervisor Name Role Phone Juan Luis Luevano DNP Primary Care Provider [phone] Encounter Details Date Type Department Care Team (Late st Contact Info) Description 10/13/2023 Orders [place] [address] Daisy Black MD [facility] [address] [place] [address] Travel advice encounter Social History Tobacco Use [...] encounter documented in this encounter Care Teams Planning Supervisor Relationship Specialty Start Date End Date Juan Luis Luevano DNP [address] [place] [address] PCP - General Family Medicine 07/07/23 documented as of this encounter
--- OUTSIDE RECORDS SUMMARY | 2024-03-22 13:15 | XMS_ITS | Encounter Summary ---
Author Organization [facility] [place] [address] Care Team Providers Care Professional Advisor Name Role Phone Juan Luis Luevano DNP Primary Care Provider [phone] Encounter Details Date Type Department Care Team (Late st Contact Info) Description 10/13/2023 Orders [place] [address] Daisy Black MD [facility] [place] [address] Travel advice encounter Social History Tobacco Use [...] encounter documented in this encounter Care Teams Professional Advisor Relationship Specialty Start Date End Date Juan Luis Luevano DNP [address] [place] [address] PCP - General Family Medicine 07/07/23 documented as of this encounter
--- OUTSIDE RECORDS SUMMARY | 2024-03-22 13:16 | XMS_ITS | Encounter Summary ---
Author Organization [facility] Address [address] [place] [address] Care Team Providers Care Life Cycle Assessment Analyst Name Role Phone Tommy Contreras ND Primary Care Provider [phone] Encounter Details Date Type Department Care Team (Late st Contact Info) Description 03/22/2024 Lab Requisition [facility] Pathology & Laboratory Medicine - [facility] [address] [place] [address] Outr Resulting Lab, Provider Social History Tobacco Use Types Packs/Day Years [...] Type Priority Associated Diagnoses Orde r Schedule H. PYLORI ANTIGEN Microbiology Routine Order ed: 03/22/2024 documented as of this encounter Visit Diagnoses Not on filedocumented in this encounter Care Teams Life Cycle Assessment Analyst Relationship Specialty Start Date End Date Tommy Contreras ND [address] [place] [address] PCP - General 12/04/13 documented as of this encounter
--- OUTSIDE RECORDS SUMMARY | 2024-03-22 13:16 | XMS_ITS | Encounter Summary ---
Author Organization [facility] Address [address] [place] [address] Care Team Providers Care Cnc Mechanic Name Role Phone Tommy Contreras ND Primary Care Provider [phone] Encounter Details Date Type Department Care Team (Late st Contact Info) Description 04/03/2014 Results Only [facility] Laboratory Services - [facility] ([facility] [address], [place] [address] Rebecca Nagel MD [address] [place] [address] [address] [place], [place] [id number] Social History Tobacco Use Types Packs/Day Years [...] ? BRIGETTE MOSS ? Accession #: ? [id number] : ? 1995 (Age: 18) ??F ?Collect [...] Nagel MD PATHOLOGY ORDERABLES [facility] [address] [place] [address] documented in this encounter Visit Diagnoses Not on filedocumented in this encounter Care Teams Cnc Mechanic Relationship Specialty Start Date End Date Tommy Contreras ND [address] [place] [address] PCP - General 12/04/13 documented as of this encounter
--- OUTSIDE RECORDS SUMMARY | 2024-03-22 13:16 | XMS_ITS | Encounter Summary ---
[place] [address] Care Team Providers Care Basting Marker Name Role Phone Aura Jay MD Primary Care Provider [phone] Encounter Details Date Type Department Care Team (Latest Contact Info) Description 06/23/2023 Transcribe [place] [phone] Brandan Larkin MD [facility] [address] [place] [address] Primary female infertility Social History Tobacco Use [...] 7:06 AM EST) Luteinizing Hormone 1.3 mlU/ML [facility] Comment: Reference Ranges Male: ? 1.7-8.6 mIU/mL Female ?? Follicular: ?2.4-12.6 mIU/mL ?? Ovulation: ? 14.0-95.6 mIU/mL ?? Luteal: ?1.0-11.4 mIU/mL ?? Postmenopausal: ?7.7-58.5 mIU/mL Blood 07/17/2023 7:06 AM EST 07/17/2023 7:09 AM EST Narrative Resulting Agency Comment Spec In Lab Brandan Larkin MD CHEMISTRY ORDERABLES [facility] [place] [address] * Estradiol (07/17/2023 7:06 AM EST) Estradiol 414 pg/mL [facility] Comment: Reference ranges: Males: Adult: ? 11 to 43 pg/mL Females: Non- females: ?Follicular: ??12-233 pg/mL ?Ovulation: ?? 41-398 pg/mL ?Luteal: ?22-341 pg/mL ?Postmenopausal: ?? <5 - 138 pg/mL females: ?1st trimester: ??154-3243 pg/mL ?2nd trimester: ??1561-07670 pg/mL ?3rd trimester: ??8525- >00731 pg/mL Blood 07/17/2023 7:06 AM EST 07/17/2023 7:09 AM EST Narrative Resulting Agency Comment Spec In Lab Brandan Larkin MD CHEMISTRY ORDERABLES Performing Organization Address [facility] Co de Phone Number [facility] [place] [address] * Progesterone (07/17/2023 7:06 AM EST) Progesterone 0.76 ng/mL [facility] Comment: Reference Range ng/mL: [...] CHEMISTRY ORDERABLES Performing Organization Address [facility] Co de Phone Number [facility] [place] [address] * Beta HCG, quantitative (07/17/2023 7:06 AM EST) Pathologist [facility] Beta Human Chorionic Gonadotropin, Quantitative <1 mlU/ML [facility] Comment: REFERENCE RANGES NON- FEMALE: [...] ? 8,175 - 55,868 ?18 weeks ? 2,604 - 13,953 This result was generated using a Octavio Ralf immunoassay. ??Results obtained from other methods or manufacturers cannot be used interchangeably with this method. Blood 07/17/2023 7:06 AM EST 07/17/2023 7:09 AM EST Narrative Resulting Agency Comment Spec In Lab Brandan Larkin MD CHEMISTRY ORDERABLES Performing Organization Address [facility] Co de Phone Number [facility] [place] [address] * Follicle Stimulating Hormone (07/17/2023 7:06 AM EST) Follicle Stimulating Hormone 24.2 mlU/ML [facility] Comment: Reference Ranges Male: ? 1.5-12.4 mIU/mL Female ?? Follicular: ?3.5-12.5 mIU/mL ?? Ovulation: ? 4.7-21.5 mIU/mL ?? Luteal: ?1.7-7.7 mIU/mL ?? Postmenopausal: ?25.8-134.8 mIU/mL Blood 07/17/2023 7:06 AM EST 07/17/2023 7:09 AM EST Narrative Resulting Agency Comment Spec In Lab Brandan Larkin MD CHEMISTRY ORDERABLES Performing Organization Address [facility] de Phone Number [facility] [place] [address] documented in this encounter Visit Diagnoses Diagnosis Primary female infertility Female infertility of unspecified origin documented in this encounter Care Teams Basting Marker Relationship Specialty Start Date End Date Aura Jay MD [facility] [place] [address] PCP - General 07/06/10 07/06/23 documented as of this encounter
--- OUTSIDE RECORDS SUMMARY | 2024-03-22 13:16 | XMS_ITS | Referral Summary ---
Author Organization [facility] Address [address] [place] [address] Care Team Providers Care Product Mgr Name Role Phone Tommy Contreras ND Primary Care Provider [phone] Encounters Date Type Department Care Team Description 03/22/2024 Lab Requisition [facility] Pathology & Laboratory Medicine - [facility] [address] [place] [address] Outr Resulting Lab, Provider from Last 3 Months Medications Medication Sig Dispensed Refills Start Date [...] 131/81 09/18/2014 0719 EST Pulse 103 09/18/2014 07 EST Temperature 37.4 ??C (99.3 ??F) 09/18/2014 07 EST Respiratory Rate 14 09/18/2014 0719 EST Oxygen Saturation 100% 09/18/2014 07 EST Inhaled Oxygen Concentration - - Weight 51.7 kg (114 lb) 09/18/2014721 EST Height 160 cm (5' 3) 09/18/2014721 EST Body Mass Index 20.19 09/18/2014 0722 EST Plan of Treatment Not on file Care Teams Product Mgr Relationship Specialty Start Date End Date Tommy Contreras ND [address] [place], [place] [address] PCP - General 12/04/13
--- OUTSIDE RECORDS SUMMARY | 2024-03-22 13:16 | XMS_ITS | Encounter Summary ---
Author Organization [facility] [place] [address] Care Team Providers Care American Sign Language Teacher Name Role Phone Juan Luis Luevano DNP Primary Care Provider [phone] Encounter Details Date Type Department Care Team (Latest Contact Info) Description 07/07/2023 6:55 AM EST Laboratory Appointment Lab [address] [place] [phone] Primary female infertility Social History Tobacco Use [...] Larkin MD CHEMISTRY ORDERABLES Performing Organization Address [facility] de Phone Number [facility] [place] [address] * Luteinizing Hormone (07/07/2023 7:13 AM EST) Luteinizing Hormone 1.7 mlU/ML [facility] Comment: Reference Ranges Male: ? 1.7-8.6 mIU/mL Female ?? Follicular: ?2.4-12.6 mIU/mL ?? Ovulation: ? 14.0-95.6 mIU/mL ?? Luteal: ?1.0-11.4 mIU/mL ?? Postmenopausal: ?7.7-58.5 mIU/mL Blood 07/07/2023 7:13 AM EST 07/07/2023 7:19 AM EST Narrative Resulting Agency Comment Spec In Lab Brandan Larkin MD CHEMISTRY ORDERABLES Performing Organization Address [facility] de Phone Number [facility] [place] [address] * Beta HCG, quantitative (07/07/2023 7:13 AM EST) Beta Human Chorionic Gonadotropin, Quantitative <1 mlU/ML [facility] Comment: REFERENCE RANGES NON- FEMALE: ??Less [...] - 56,451 ?17 weeks ? 8,175 - 97,868 ?18 weeks ? 8,480 - 72,176 This result was generated using a Octavio Ralf immunoassay. ??Results obtained from other methods or manufacturers cannot be used interchangeably with this method. Blood 07/07/2023 7:13 AM EST 07/07/2023 7:19 AM EST Narrative Resulting Agency Comment Spec In Lab Brandan Larkin MD CHEMISTRY ORDERABLES [facility] [place] [address] * Progesterone (07/07/2023 7:13 AM EST) Progesterone 0.34 ng/mL [facility] Comment: Reference [...] Larkin MD CHEMISTRY ORDERABLES Performing Organization Address City/[facility] Co de Phone Number [facility] [place] [address] * Estradiol (07/07/2023 7:13 AM EST) Estradiol <5 pg/mL [facility] Comment: Reference ranges: Males: Adult: ? 11 to 43 pg/mL Females: Non- females: ?Follicular: ??12-233 pg/mL ?Ovulation: ?? 41-398 pg/mL ?Luteal: ?22-341 pg/mL ?Postmenopausal: ?? <5 - 138 pg/mL females: ?1st trimester: ??154-3243 pg/mL ?2nd trimester: ??1561-89278 pg/mL ?3rd trimester: ??8525- >83652 pg/mL Blood 07/07/2023 7:13 AM EST 07/07/2023 7:19 AM EST Narrative Resulting Agency Comment Spec In Lab Brandan Larkin MD CHEMISTRY ORDERABLES Performing Organization Address City/[facility] Co de Phone Number [facility] [place] [address] documented in this encounter Visit Diagnoses Diagnosis Primary female infertility Female infertility of unspecified origin documented in this encounter Care Teams American Sign Language Teacher Relationship Specialty Start Date End Date Juan Luis Luevano DNP [address] [place] [address] PCP - General Family Medicine 07/07/23 documented as of this encounter
--- OUTSIDE RECORDS SUMMARY | 2024-03-22 13:16 | XMS_ITS | Encounter Summary ---
Author Organization [facility] Address [address] [place] [address] Care Team Providers Care Pharmacy Technician Inpatient Name Role Phone Tommy Contreras ND Primary Care Provider [phone] Encounter Details Date Type Department Care Team (Latest Contact Info) Description 06/26/2015 16:25 EST - 06/26/2015 22:00 [facility] Hospital Encounter [facility] - [address] [address] Martín Esteban, FIDEL [address] [place] [id number] Discharge Disposition: Home or Self Care Social [...] on filedocumented in this encounter Care Teams Pharmacy Technician Inpatient Relationship Specialty Start Date End Date Tommy Contreras ND [address] [place], [place] [address] PCP - General 12/04/13 documented as of this encounter
--- OUTSIDE RECORDS SUMMARY | 2024-03-22 13:16 | XMS_ITS | Encounter Summary ---
Author Organization [facility] Address [address] [place] [address] Care Team Providers Care Air Conditioning Installer Supervisor Name Role Phone BenTommy CHARO Primary Care Provider [phone] Reason for Visit * Reason Onset Date Comments Appointment Related 01/02/2023 Encounter Details Date Type Department Care Team (Late st Contact Info) Description 01/02/2023 Telephone [facility] [address] [place], [place] [phone] Ludwin Pineda MD [address] [facility] [address] [place] [address] Appointment Related Social History Tobacco [...] on filedocumented in this encounter Care Teams Air Conditioning Installer Supervisor Relationship Specialty Start Date End Date Tommy Contreras ND [facility] [place] [address] PCP - General 12/04/13 documented as of this encounter
--- OUTSIDE RECORDS SUMMARY | 2024-03-22 13:16 | XMS_ITS | Clinical Summary ---
Author Organization [facility] Address [address] [place] [address] Care Team Providers Care Volleyball Player Name Role Phone BenTommy bardales ND Primary Care Provider [phone] Medications Medication Sig Dispensed Refills Start Date End Date Status UNKNOWN TO PATIENT Active Encounters Date Type Department Care Team Description 03/22/2024 Lab Requisition [facility] Pathology & Laboratory Medicine - [facility] [address] [place] [address] Outr Resulting Lab, Provider from Last 3 Months Surgical History Surgery Date Site/Laterality Comments WISDOM [...] - 19+ 3-dose series) 06/17 COVID-19 Vaccine (2022-24 season) 2023 Care Teams Volleyball Player Relationship Specialty Start Date End Date Ben CHARO Sanders [address] [place] [address] PCP - General 12/04/13
--- OUTSIDE RECORDS SUMMARY | 2024-03-22 13:16 | XMS_ITS | Encounter Summary ---
Author Organization [facility] Address [address] [place] [address] Care Team Providers Care Costume Maker Name Role Phone Tommy Contreras ND Primary Care Provider [phone] Encounter Details Date Type Department Care Team (Late st Contact Info) Description 06/26/[address] [facility] [phone] Martín Esteban, FIDEL [address] [place], [place] [address] Social History Tobacco Use Types Packs/Day Years [...] Result No polys seen 06/26/2015 13:06 EST [facility] Gram Smear Result No bacteria seen 06/26/2015 13:06 EST [facility] Result No growth 06/28/2015 7:12 EST [facility] SPECIMEN FROM SKIN / Unknown 06/26/2015 8:12 EST 06/26/2015 10:50 EST Comment:Specimen submitted o n a swab Martín PARRA MICROBIOLOGY - GENE RAL ORDERABLES [facility] [address] [place] [address] documented in this encounter Visit Diagnoses Not on filedocumented in this encounter Care Teams Costume Maker Relationship Specialty Start Date End Date Tommy Contreras ND [facility] [place] [address] PCP - General 12/04/13 documented as of this encounter
--- OUTSIDE RECORDS SUMMARY | 2024-03-22 13:16 | XMS_ITS | Encounter Summary ---
[place] [address] Care Team Providers Care Title Curator Name Role Phone Aura Jay MD Primary Care Provider [phone] Encounter Details Date Type Department Care Team (Latest Contact Info) Description 07/04/2023 Transcribe [place] [phone] Brandan Larkin MD [facility] [address] [place] [address] Primary female infertility Social History Tobacco Use [...] (07/07/2023 7:13 AM EST) Estradiol <5 pg/mL [facility] Comment: Reference ranges: Males: Adult: ? 11 to 43 pg/mL Females: Non- females: ?Follicular: ??12-233 pg/mL ?Ovulation: ?? 41-398 pg/mL ?Luteal: ?22-341 pg/mL ?Postmenopausal: ?? <5 - 138 pg/mL females: ?1st trimester: ??154-3243 pg/mL ?2nd trimester: ??1561-43406 pg/mL ?3rd trimester: ??8525- >66876 pg/mL Blood 07/07/2023 7:13 AM EST 07/07/2023 7:19 AM EST Narrative Resulting Agency Comment Spec In Lab Brandan Larkin MD CHEMISTRY ORDERABLES Performing Organization Address [facility] Co de Phone Number [facility] [place] [address] * Progesterone (07/07/2023 7:13 AM EST) Progesterone 0.34 ng/mL [facility] Comment: Reference Range ng/mL: Males: ? [...] Larkin MD CHEMISTRY ORDERABLES Performing Organization Address [facility] Co de Phone Number [facility] [place] [address] * Beta HCG, quantitative (07/07/2023 7:13 AM EST) Beta Human Chorionic Gonadotropin, Quantitative <1 mlU/ML [facility] Comment: REFERENCE RANGES NON- FEMALE: [...] - 56,451 ?17 weeks ? 8,175 - 94,868 ?18 weeks ? 8,611 - 61,176 This result was generated using a Octavio Ralf immunoassay. ??Results obtained from other methods or manufacturers cannot be used interchangeably with this method. Blood 07/07/2023 7:13 AM EST 07/07/2023 7:19 AM EST Narrative Resulting Agency Comment Spec In Lab Brandan Larkin MD CHEMISTRY ORDERABLES Performing Organization Address [facility] de Phone Number [facility] [place] [phone] * Luteinizing Hormone (07/07/2023 7:13 AM EST) Luteinizing Hormone 1.7 mlU/ML [facility] Comment: Reference Ranges Male: ? 1.7-8.6 mIU/mL Female ?? Follicular: ?2.4-12.6 mIU/mL ?? Ovulation: ? 14.0-95.6 mIU/mL ?? Luteal: ?1.0-11.4 mIU/mL ?? Postmenopausal: ?7.7-58.5 mIU/mL Blood 07/07/2023 7:13 AM EST 07/07/2023 7:19 AM EST Narrative Resulting Agency Comment Spec In Lab Brandan Larkin MD CHEMISTRY ORDERABLES Performing Organization Address [facility]/ZIP Co de Phone Number [facility] [place] [address] * Follicle Stimulating Hormone (07/07/2023 7:13 AM EST) Follicle Stimulating Hormone 2.4 mlU/ML [facility] Comment: Reference Ranges Male: ? 1.5-12.4 mIU/mL Female ?? Follicular: ?3.5-12.5 mIU/mL ?? Ovulation: ? 4.7-21.5 mIU/mL ?? Luteal: ?1.7-7.7 mIU/mL ?? Postmenopausal: ?25.8-134.8 mIU/mL Blood 07/07/2023 7:13 AM EST 07/07/2023 7:19 AM EST Narrative Resulting Agency Comment Spec In Lab Brandan Larkin MD CHEMISTRY ORDERABLES Performing Organization Address [facility] Co de Phone Number [facility] [place] [address] documented in this encounter Visit Diagnoses Diagnosis Primary female infertility Female infertility of unspecified origin documented in this encounter Care Teams Title Curator Relationship Specialty Start Date End Date Aura Jay MD [facility] [address] [facility]ILD [facility]AC[facility] [place] [address] PCP - General 07/06/10 07/06/23 documented as of this encounter
--- OUTSIDE RECORDS SUMMARY | 2024-03-22 13:16 | XMS_ITS | Encounter Summary ---
Author Organization [facility] [place] [address] Care Team Providers Care Manager Play Name Role Phone Aura Jay MD Primary Care Provider [phone] Reason for Visit * Reason Comments Other ? migraine Encounter Details Date Type Department Care Team (Late st Contact Info) Description 06/22/2011 8:45 AM EST Office [place] [phone] Solomon Beasley MD [facility] DR [place] [address] Migraine headache (Primary Dx) Discharge Disposition: Home [...] is going to be inducted into the [employer] [facility] because she is an excellent student. 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 At any rate, last winter she developed a severe headache along with some agitation and confusion. She was in [facility] for a period of time, and then [...] she was in [employer] at [employer]. 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 She just recently has met a counselor [...] Romberg test. There is no ataxia on egqjrb-te-ambf testing. Rapid alternating movements are carried out [...] diagnosis is migraine. CC: Darwin Dominguez M.D. [place] documented in this encounter Plan of Treatment Not on file documented as of this encounter Visit Diagnoses Diagnosis Migraine headache- Primary Migraine, unspecified, without mention of intractable migraine without mention of status migrainosus documented in this encounter Care Teams Manager Play Relationship Specialty Start Date End Date Aura Jay MD [facility] CHILD ADVOCACY & [place] [address] PCP - General 07/06/10 07/06/23 documented as of this encounter
--- OUTSIDE RECORDS SUMMARY | 2024-03-22 13:16 | XMS_ITS | Encounter Summary ---
Author Organization [facility] Address [address] [place] [address] Care Team Providers Care Instrument And Control Service Person Name Role Phone Tommy Contreras ND Primary Care Provider [phone] Encounter Details Date Type Department Care Team (Late st Contact Info) Description 05/31/2017 Results Only [facility] [phone] Anya Rayo, BINDER CUTTER HAND [address] [place] [phone] Social History Tobacco Use Types Packs/Day Years [...] ? BRIGETTE MOSS ? Accession #: ? [id number] ? : ? 1995 (Age: 21) ??F ?Collect Date: ? 05/31/2017 ? Location: ? [facility] ? Receive Date: ? 06/02/2017 ? Provider: ANYA RAYO [facility]- Copy to: ? Final Report SPECIMEN [...] types 16,18,31,33,35, 39,45,51,52,56,58, 59,66, and 68 by charting clerk mediated amplification. Comments Document reviewed and electronically signed by: ? System Interface ? Report date: 06/15/2017 By the signature above, the attending physician certifies that he/she has personally conducted a gross and/or microscopic examination of the described specimens and rendered or confirmed the above diagnosis. End of Report [facility] 05/31/2017 06/02/2017 Anya Rayo NP PATHOLOGY ORDERABLES [facility] [address] [place] [address] documented in this encounter Visit Diagnoses Not on filedocumented in this encounter Care Teams Instrument And Control Service Person Relationship Specialty Start Date End Date Tommy Contreras ND [address] [place] [address] PCP - General 12/04/13 documented as of this encounter
--- OUTSIDE RECORDS SUMMARY | 2024-03-22 13:16 | XMS_ITS | Encounter Summary ---
Author Organization [facility] Address [address] [place] [address] Care Team Providers Care Chinese Teacher Name Role Phone Tommy Contreras ND Primary Care Provider [phone] Reason for Visit * Reason Comments Laceration left index finger la ceration/avulsion finger pinched in grate in milking parlor, dT UTD , Encounter Details Date Type Department Care Team (Late st Contact Info) Description 09/18/2014 7:16 EST - 09/18/2014 7:56 EST Emergency [facility] Emergency Department - [place] [address] [place] [address] Edwin Balderas, HAFSA [address] [place] [address] Emergency, MD Edward Fingertip avulsion (Primary Dx); [...] finger laceration/avulsion finger pinched in grate in [facility] Jaime gallagher , The patient is [...] Past Surgical History Procedure Laterality Date ??? [place] tooth extraction Not on File History Substance [...] PATIENT added in this encounter Care Teams Chinese Teacher Relationship Specialty Start Date End Date Tommy Contreras ND [address] [place] [address] PCP - General 12/04/13 documented as of this encounter
--- OUTSIDE RECORDS SUMMARY | 2024-03-22 13:16 | XMS_ITS | Encounter Summary ---
Author Organization [facility] Address [address] [place] [address] Care Team Providers Care Copping Machine Operator Name Role Phone Tommy Contreras ND Primary Care Provider [phone] Encounter Details Date Type Department Care Team (Late st Contact Info) Description 03/29/2016 Results Only [facility] [phone] Ashley Ng NP [address] [address] Social History Tobacco Use Types [...] ? BRIGETTE MOSS ? Accession #: ? [id number] : ? 1995 (Age: 20) ??F ?Collect Date: ? 03/29/2016 Location: ? [facility] ? Receive Date: ? 03/30/2016 Provider: ?ASHLEY NG THERMAL ENGINEER Copy to: ? Specimen/Source: ?Pap Test, Cervix/Endocervix, ThinPrep Imaging System with manual evaluation Last Menstrual Period: ? 03/13/2016 Hormonal/Contracep tive Status: ? None Other: ? Japanese Professor Clinical/Treatment Hx - None ? SPECIMEN ADEQUACY ? Satisfactory for Evaluation - transformation zone component present GENERAL CATEGORIZATION ? Negative for Intraepithelial Lesion or Malignancy INTERPRETATION ? Reactive cellular changes associated with inflammation present (includes repair). ? Document reviewed and electronically signed by: ? JARROD SLOAN MD ? Report Date: ??04/05/2016 17:28 End of Report [facility] 03/29/2016 03/30/2016 Ashley Ng THERMAL ENGINEER PATHOLOGY ORDERABLES [facility] [address] [place] [address] documented in this encounter Visit Diagnoses Not on filedocumented in this encounter Care Teams Copping Machine Operator Relationship Specialty Start Date End Date Tommy Contreras ND [facility] [place] [address] PCP - General 12/04/13 documented as of this encounter
--- OUTSIDE RECORDS SUMMARY | 2024-03-22 13:16 | XMS_ITS | Encounter Summary ---
[place] [address] Care Team Providers Care Special Machine Stitcher Name Role Phone Juan Luis Luevano RHETT Primary Care Provider [phone] Reason for Referral * Diagnostic Test (Routine) - Pending Review Specialty Diagnoses / Procedures Referred By Contac t Referred To Contact Radiology Diagnoses Primary female infertility Procedures US Ovulation Induction Stacia Larkin MD [address] [address] [place] [address] Referral ID Status Reason Start Date Expiration Date Visits Requested Visits Authorized [id number] Pending Review Specialty Service Requested 3 12/24/2024 1 1 Reason for Visit * Diagnostic Test (Routine) - Pending Review Specialty Diagnoses / Procedures Referred By Contac t Referred To Contact Radiology Diagnoses Primary female infertility Procedures US Ovulation Induction Stacia Larkin MD [address] [place] [address] [place] [address] Referral ID Status Reason Start Date Expiration Date Visits Requested Visits Authorized [id number] Pending Review Specialty Service Requested 3 12/24/2024 1 1 Encounter Details Date Type Department Care Team (Latest Contact Info) Description 07/07/2023 8:16 AM EST - 07/07/2023 11:59 PM EST Hospital [place] [address] Stacia Larkin MD [facility] [address] [place] [address] Primary female infertility Discharge Disposition: Home Social [...] who have questions, please contact the health manager wound care that requested your imaging first. ??Sahara Deleon, BEKAH [facility] & Dept Chair - Rad Electronically Signed Final Report ?? 07/07/2023 08:49 am Narrative 07/07/2023 8:50 AM EST [place] Report ?(Signed Final 07/07/2023 08:49 am) PATIENT INFO: ID #: ? [id number] ?: ??[birth year] (28 yrs)(F) Name: ? BRIGETTE MOSS ? Visit Date: 07/07/2023 08:38 am PERFORMED BY: Attending: ?Adrienne VILLAREAL, Sahara Chun Performed By: ? Charisma Trejo RDMS Referred By: ?STACIA LARKIN Location: ? [place] SERVICE(S) PROVIDED: [facility]I - Ovulation Induction - [id number] INDICATIONS: ANTRAL FOLLICLE COUNT AND SIZE; UTERINE [...] 07/07/2023 08:49 am) PATIENT INFO: ID #: [id number] : [birth year] (28 yrs)(F) Name: BRIGETTE MOSS Visit Date: 07/07/2023 08:38 am PERFORMED BY: Attending: Sahara Deleon MD Performed By: Charisma Trejo RDMS Referred By: STACIA LARKIN Location: [place] SERVICE(S) PROVIDED: [facility]OI - Ovulation Induction - [id number] INDICATIONS: ANTRAL FOLLICLE COUNT AND SIZE; UTERINE [...] who have questions, please contact the health manager wound care that requested your imaging first. Sahara Deleon, [facility] & Dept Chair - Rad Electronically Signed Final Report 07/07/2023 08:49 am Stacia Larkin MD IMG US PELVIC ORDERA BLES documented in this encounter Visit Diagnoses Diagnosis Primary female infertility Female infertility of unspecified origin documented in this encounter Care Teams Special Machine Stitcher Relationship Specialty Start Date End Date Juan Luis Luevano DNP [address] [place] [address] PCP - General Family Medicine 07/07/23 documented as of this encounter
--- OUTSIDE RECORDS SUMMARY | 2024-03-22 13:16 | XMS_ITS | Encounter Summary ---
Author Organization [facility] Address [address] [place] [address] Care Team Providers Care Cushion Worker Name Role Phone Ben, Tommy MANCILLA Primary Care Provider [phone] Encounter Details Date Type Department Care Team (Late st Contact Info) Description 09/22/2014 14:08 EST - 09/22/2014 23:59 EST Hospital Encounter [facility] [address] [place] [address] BenTommy ND [address] [place] [phone] Discharge Disposition: Auto Discharge Social History Tobacco [...] on filedocumented in this encounter Care Teams Cushion Worker Relationship Specialty Start Date End Date Tommy Contreras ND [address] [place] [address] PCP - General 12/04/13 documented as of this encounter
--- OUTSIDE RECORDS SUMMARY | 2024-03-22 13:16 | XMS_ITS | Encounter Summary ---
[place] [address] Care Team Providers Care Chief Wharfinger Name Role Phone Aura Jay MD Primary Care Provider [phone] Encounter Details Date Type Department Care Team (Late st Contact Info) Description 07/04/2023 Trans[place] [phone] Brandan Larkin MD [address] [address] Social History Tobacco Use Types Packs/Day Years Used Date Smoking Tobacco: Never Sex and Gender Information Value Date Recorded Sex Assigned at Not on file Gender Identity Not on file Sexual Orientation Not on file documented as of this encounter Plan of Treatment Not on file documented as of this encounter Visit Diagnoses Not on filedocumented in this encounter Care Teams Chief Wharfinger Relationship Specialty Start Date End Date Aura Jay MD [facility] [address] CHILD ADVOCACY [facility] [place] [address] PCP - General 07/06/10 07/06/23 documented as of this encounter
--- OUTSIDE RECORDS SUMMARY | 2024-03-22 13:16 | XMS_ITS | Encounter Summary ---
[place] [address] Care Team Providers Care Computer Help Desk Specialist Name Role Phone Aura Jay MD Primary Care Provider [phone] Encounter Details Date Type Department Care Team (Latest Contact Info) Description 09/12/2010 5:29 PM EST - 09/13/2010 7:16 PM EST Hospital Encounter [place] [address] [place] [address] [place] [address] Discharge Disposition: Home Social History Tobacco Use [...] Active and Recently Administered Medications Care Teams Computer Help Desk Specialist Relationship Specialty Start Date End Date Aura Jay MD [facility]ILD [facility]VOCACY [facility] [place] [address] PCP - General 07/06/10 07/06/23 documented as of this encounter
--- OUTSIDE RECORDS SUMMARY | 2024-03-22 13:16 | XMS_ITS | Encounter Summary ---
Author Organization [facility] Address [address] [place] [address] Care Team Providers Care Phytochemistry Professor Name Role Phone Unknown, Provider Primary Care Provider [phone] Encounter Details Date Type Department Care Team (Latest Contact Info) Description 11/29/2013 10:16 EDT - 11/29/2013 22:00 EDT Hospital Encounter [address] [address] Rebecca Funes ND [address] [place] [address] Discharge Disposition: Home or Self Care Social [...] on filedocumented in this encounter Care Teams Phytochemistry Professor Relationship Specialty Start Date End Date Unknown, Provider, PCP - General 11/29/13 12/03/13 documented as of this encounter
--- OUTSIDE RECORDS SUMMARY | 2024-03-22 13:16 | XMS_ITS | Encounter Summary ---
Author Organization [facility] Address [address] [place] [address] Care Team Providers Care Motor Vehicle Inspector Name Role Phone Unknown, Provider Primary Care Provider [phone] Encounter Details Date Type Department Care Team (Late st Contact Info) Description 11/29/2013 Results Only [facility] [phone] Rebecca Funes ND [address] [place] [address] Social History Tobacco Use Types Packs/Day Years [...] PF4 ORD ERABLES [facility] [address] [place] [address] * HEMAGRAM (11/29/2013 8:52 EDT) WBC 5.16 [...] & PF4 ORD ERABLES Performing Organization Address [facility] Co de Phone Number [facility] [address] [place] [address] * TSH (11/29/2013 8:52 EDT) TSH 1.00 0.35 - 5.00 uIU/ml [facility] 11/29/2013 8:52 EDT 11/29/2013 13:50 EDT Rebecca Funes ND CHEMISTRY & BLOOD GA S ORDERABLES Performing Organization Address [facility] de Phone Number [facility] [address] [place] [address] * TRANSFERRIN SATURATION (11/29/2013 8:52 EDT) Iron 103 37 - 170 ug/dl [facility] TIBC 449 265 - 497 ug/dl [facility] Iron Saturation 23 20 - 55 % [facility] 11/29/2013 8:52 EDT 11/29/2013 13:50 EDT Rebecca Funes ND CHEMISTRY & BLOOD GA S ORDERABLES Performing Organization Address [facility] Co de Phone Number [facility] [address] [place] [address] * T4 (11/29/2013 8:52 EDT) T4, Total 6.3 4.5 - 10.9 ug/dL [facility] 11/29/2013 8:52 EDT 11/29/2013 13:50 EDT Rebecca Funes ND CHEMISTRY & BLOOD GA S ORDERABLES Performing Organization Address [facility] Phone Number [facility] [address] [place] [address] * PROGESTERONE (11/29/2013 8:52 EDT) Progesterone 0.8 [...] BLOOD GA S ORDERABLES Performing Organization Address [facility] [place] [address] * LIPID PROFILE (INCLUDES CHOLESTEROL, TRIGLYCERIDES, HDL, LDL) (11/29/2013 8:52 EDT) Cholesterol 109 mg/dl [facility] Comment: Desirable:<200 Borderline High:200-239 High:>sn=293 Triglycerides 48 mg/dl [facility] Comment: Normal:<150 Borderline High:150-199 High:200-499 Very High:>we=056 HDL 46 mg/dl [facility] Comment: Low:<40 Normal:40-60 Desirable: >60 LDL, Calculated 53 mg/dl [facility] Comment: Optimal:<100 Near Optimal:100-129 Borderline High:130-159 High:160-189 Very High:>dg=866 Chol/HDL Ratio 2.4 [facility] Fasting? Unknown [facility] Non HDL Cholesterol 63 mg/dl [facility] Comment: Desirable:<130 Borderline:130-159 High: 160-189 Very High: >ym=208 11/29/2013 8:52 EDT 11/29/2013 13:50 EDT Rebecca Funes ND CHEMISTRY & BLOOD GA S ORDERABLES Performing Organization Address [facility] de Phone Number [facility] [address] [place] [address] * T3 FREE (11/29/2013 8:52 EDT) T3, Free 3.0 2.3 - 4.2 pg/mL [facility] 11/29/2013 8:52 EDT 11/29/2013 13:50 EDT Rebecca Funes ND CHEMISTRY & BLOOD GA S ORDERABLES Performing Organization Address [facility] Phone Number [facility] [address] [place] [address] * (ABNORMAL) FERRITIN (11/29/2013 8:52 EDT) Ferritin 8(L) 10 - 291 ng/mL [facility] 11/29/2013 8:52 EDT 11/29/2013 13:50 EDT Rebecca Funes ND CHEMISTRY & BLOOD GA S ORDERABLES Performing Organization Address [facility] de Phone Number [facility] [address] [place] [address] * ESTROGENS, ESTRONE (E1) AND ESTRADIOL (E2), FRACTIONATED, SERUM (11/29/2013 8:52 EDT) Estrone 40 pg/mL [facility] Comment: (Note) -- REFERENCE VALUE -- Premenopausal :17-200 Postmenopausal : 7-40 Estradiol, Serum 47 pg/mL [facility] Comment: (Note) -- REFERENCE VALUE -- Premenopausal: 15-350 (E2 levels vary widely through the menstrual cycle.) Postmenopausal: <10 Performed or Referred by: [facility] Labs: [facility], [address] [facility], [place] [address], Lab Dir: Bear Rojas III, MD 11/29/2013 8:52 EDT 11/29/2013 13:50 EDT Rebecca Funes ND CHEMISTRY & BLOOD GA S ORDERABLES [facility] [address] [place] [address] * (ABNORMAL) COMPREHENSIVE METABOLIC PANEL (CMP) (11/29/2013 [...] LAB Calcium 9.7 8.5 - 10.5 mg/dl [facility] Calculated Calcium 9.3 8.5 - 10.5 mg/dl [facility] Glucose, Serum 74 70 - 100 mg/dl [facility] Fasting? Unknown [facility] 11/29/2013 8:52 EDT 11/29/2013 13:50 EDT Rebecca L Funes ND CHEMISTRY & BLOOD GA S ORDERABLES [facility] [address] [place] [address] documented in this encounter Visit Diagnoses Not on filedocumented in this encounter Care Teams Motor Vehicle Inspector Relationship Specialty Start Date End Date Unknown, Provider, PCP - General 11/29/13 12/03/13 documented as of this encounter
[2024-03-26 14:09] LABS: Helicobacter pylori Ag, Feces Negative (Negative)
== END 2024-03-22 13:11 | disposition home or self-care (01) ==
LOC: NCHCN 13:10
PROVIDERS: PCP Nurse Practitioner Family; Visit Provider Nurse Practitioner Family
DX: R10.31 Right lower quadrant pain (principal); R10.13 Epigastric pain
CPT/HCPCS: 87338

== ENCOUNTER 2024-03-29 16:53 | Outpatient (REF) | payer BC, SELFPAY ==
--- NOTE | 2024-03-29 16:30 | PAPFT_PTH ---
PATIENT: Brigette Camargo LOC: [facility] U#:[id number] AGE/SX: 28/F ROOM: RE03/29/[address]: Juan Luis Lopez DNP : 1995 BED: DIS: 03/29/2024 SPEC #: [id number] RECD: 04/01/24 12:57 STATUS: JULIO REMaryjane #: [id number] VEGA: 03/29/24 16:[address]: Juan Luis Frederick DEPT: REPLACED BY [facility] Cytology RECD BY: Zarina Alvarado Tissues: 1 - CX/ENDOCX FOR PAP SMEARS Procedures: PAP THIN PREP/UVM Screening Comments: [id number]
--- OUTSIDE RECORDS SUMMARY | 2024-03-29 16:58 | XMS_ITS | Encounter Summary ---
Author Organization [facility] [place] [address] Care Team Providers Care Welder Operator Name Role Phone Juan Luis Luevano DNP Primary Care Provider [phone] Encounter Details Date Type Department Care Team (Late st Contact Info) Description 10/13/2023 Orders [place] [address] Daisy Black MD [facility] DR INFECTIOUS [place] [address] Travel advice encounter Social History Tobacco Use [...] encounter documented in this encounter Care Teams Welder Operator Relationship Specialty Start Date End Date Juan Luis Luevano DNP [address] [place] [address] PCP - General Family Medicine 07/07/23 documented as of this encounter
--- OUTSIDE RECORDS SUMMARY | 2024-03-29 16:58 | XMS_ITS | Encounter Summary ---
Author Organization [facility] Address [address] [place] [address] Care Team Providers Care Leacher Name Role Phone Tommy Contreras ND Primary Care Provider [phone] Encounter Details Date Type Department Care Team (Late st Contact Info) Description 03/22/2024 Lab Requisition [facility] Pathology & Laboratory Medicine - [facility] [address] [place], [place] [address] Outr Resulting Lab, Provider Social History Tobacco [...] Procedure Name Priority Date/Time Associated Diagnosis Comments H. PYLORI ANTIGEN Routine 03/22/2024 7:00 EDT documented in this encounter Results * H. PYLORI ANTIGEN (03/22/2024 7:00 EDT) H. Pylori Negative Negative 03/26/2024 14:05 EDT [facility] Comment:Indicates the absenc e of H. pylori stool antigen, (or the level of antigen is below that which can be detected by the assay) Feces SPECIMEN FROM RECTUM / Unknown 03/22/2024 7:00 EDT 03/22/2024 17:22 EDT Narrative [facility] - 03/26/2024 14:05 EDT New Liaison XL testing method used as of 06/05/2023 Provider Outr Resulting Lab MICROBIOLOGY - GENERAL ORDERABLES [facility] [address] [place], [place] [id number] documented in this encounter Visit Diagnoses Not on filedocumented in this encounter Care Teams Leacher Relationship Specialty Start Date End Date Tommy Contreras ND [address] [place] [address] PCP - General 12/04/13 documented as of this encounter
--- OUTSIDE RECORDS SUMMARY | 2024-03-29 16:58 | XMS_ITS | Referral Summary ---
Author Organization [facility] Address [address] [place] [address] Care Team Providers Care Customs Manager Name Role Phone Tommy Contreras ND Primary Care Provider [phone] Encounters Date Type Department Care Team Description 03/22/2024 Lab Requisition [facility] Pathology & Laboratory Medicine - [facility] [address] [place] [address] Outr Resulting Lab, Provider from Last 3 [...] 09/18/2014721 EST Height 160 cm (5' 3) 09/18/2014 07 EST Body Mass Index 20.19 09/18/2014 0722 EST Plan of Treatment Not on file Procedures Procedure Name Priority Date/Time Associated Diagnosis Comments H. PYLORI ANTIGEN Routine 03/22/2024 7:00 EDT from Last 3 Months Results * H. PYLORI ANTIGEN (03/22/2024 7:00 EDT) H. Pylori Negative Negative 03/26/2024 14:05 EDT [facility] Comment:Indicates the absenc e of H. pylori stool antigen, (or the level of antigen is below that which can be detected by the assay) Feces SPECIMEN FROM RECTUM / Unknown 03/22/2024 7:00 EDT 03/22/2024 17:22 EDT Narrative [facility] - 03/26/2024 14:05 EDT New Liaison XL testing method used as of 06/05/2023 Provider Outr Resulting Lab MICROBIOLOGY - GENERAL ORDERABLES [facility] [address] [place] [address] from Last 3 Months Care Teams Customs Manager Relationship Specialty Start Date End Date Tommy Contreras ND [address] [place] [address] PCP - General 12/04/13
--- OUTSIDE RECORDS SUMMARY | 2024-03-29 16:58 | XMS_ITS | Encounter Summary ---
[place] [address] Care Team Providers Care Pond Tender Name Role Phone Aura Jay MD Primary Care Provider [phone] Encounter Details Date Type Department Care Team (Latest Contact Info) Description 07/04/2023 [place] [address] Brandan Larkin MD [facility] [address] [place] [address] Primary female infertility Social History Tobacco Use [...] (07/07/2023 7:13 AM EST) Estradiol <5 pg/mL [facility] Comment: Reference ranges: Males: Adult: ? 11 to 43 pg/mL Females: Non- females: ?Follicular: ??12-233 pg/mL ?Ovulation: ?? 41-398 pg/mL ?Luteal: ?22-341 pg/mL ?Postmenopausal: ?? <5 - 138 pg/mL females: ?1st trimester: ??154-3243 pg/mL ?2nd trimester: ??1561-24023 pg/mL ?3rd trimester: ??8525- >49085 pg/mL Blood 07/07/2023 7:13 AM EST 07/07/2023 7:19 AM EST Narrative Resulting Agency Comment Spec In Lab Brandan Larkin MD CHEMISTRY ORDERABLES Performing Organization Address [facility] Co de Phone Number [facility] [place] [address] * Progesterone (07/07/2023 7:13 AM EST) Progesterone 0.34 ng/mL [facility] Comment: Reference Range ng/mL: Males: [...] Larkin MD CHEMISTRY ORDERABLES Performing Organization Address [facility] Co de Phone Number [facility] [place] [address] * Beta HCG, quantitative (07/07/2023 7:13 AM EST) Beta Human Chorionic Gonadotropin, Quantitative <1 mlU/ML [facility] Comment: REFERENCE RANGES NON- FEMALE: [...] - 56,451 ?17 weeks ? 8,175 - 39,868 ?18 weeks ? 8,637 - 67,176 This result was generated using a Octavio Ralf immunoassay. ??Results obtained from other methods or manufacturers cannot be used interchangeably with this method. Blood 07/07/2023 7:13 AM EST 07/07/2023 7:19 AM EST Narrative Resulting Agency Comment Spec In Lab Brandan Larkin MD CHEMISTRY ORDERABLES Performing Organization Address [facility] de Phone Number [facility] [place] [phone] * Luteinizing Hormone (07/07/2023 7:13 AM EST) Luteinizing Hormone 1.7 mlU/ML [facility] Comment: Reference Ranges Male: ? 1.7-8.6 mIU/mL Female ?? Follicular: ?2.4-12.6 mIU/mL ?? Ovulation: ? 14.0-95.6 mIU/mL ?? Luteal: ?1.0-11.4 mIU/mL ?? Postmenopausal: ?7.7-58.5 mIU/mL Blood 07/07/2023 7:13 AM EST 07/07/2023 7:19 AM EST Narrative Resulting Agency Comment Spec In Lab Brandan Larkin MD CHEMISTRY ORDERABLES Performing Organization Address [facility]/ZIP Co de Phone Number [facility] [place] [address] * Follicle Stimulating Hormone (07/07/2023 7:13 AM EST) Follicle Stimulating Hormone 2.4 mlU/ML [facility] Comment: Reference Ranges Male: ? 1.5-12.4 mIU/mL Female ?? Follicular: ?3.5-12.5 mIU/mL ?? Ovulation: ? 4.7-21.5 mIU/mL ?? Luteal: ?1.7-7.7 mIU/mL ?? Postmenopausal: ?25.8-134.8 mIU/mL Blood 07/07/2023 7:13 AM EST 07/07/2023 7:19 AM EST Narrative Resulting Agency Comment Spec In Lab Brandan Larkin MD CHEMISTRY ORDERABLES Performing Organization Address [facility] Co de Phone Number [facility] [place] [address] documented in this encounter Visit Diagnoses Diagnosis Primary female infertility Female infertility of unspecified origin documented in this encounter Care Teams Pond Tender Relationship Specialty Start Date End Date Aura Jay MD [facility] [address] CHILD ADVOCACY [place] [address] PCP - General 07/06/10 07/06/23 documented as of this encounter
--- OUTSIDE RECORDS SUMMARY | 2024-03-29 16:58 | XMS_ITS | Clinical Summary ---
Author Organization [facility] [place] [address] Care Team Providers Care Bone Puller Name Role Phone Juan Luis Luevano Lalitomorgan RHETT Primary Care Provider [phone] Allergies No known active allergies Medications Medication [...] Tdap adult Completed 11/05/2020, 11/05/2020 Care Teams Bone Puller Relationship Specialty Start Date End Date Juan Luis Luevano DNP [address] [place] [address] PCP - General Family Medicine 07/07/23
--- OUTSIDE RECORDS SUMMARY | 2024-03-29 16:58 | XMS_ITS | Encounter Summary ---
[place] [address] Care Team Providers Care Hand Bunch Maker Name Role Phone Aura Jay MD Primary Care Provider [phone] Encounter Details Date Type Department Care Team (Late st Contact Info) Description 07/04/2023 [place] [phone] Brandan Larkin MD [address] [address] Social History Tobacco Use Types Packs/Day Years Used Date Smoking Tobacco: Never Sex and Gender Information Value Date Recorded Sex Assigned at Not on file Gender Identity Not on file Sexual Orientation Not on file documented as of this encounter Plan of Treatment Not on file documented as of this encounter Visit Diagnoses Not on filedocumented in this encounter Care Teams Hand Bunch Maker Relationship Specialty Start Date End Date Aura Jay MD [facility] [address] CHILD ADVOCACY [place] [address] PCP - General 07/06/10 07/06/23 documented as of this encounter
--- OUTSIDE RECORDS SUMMARY | 2024-03-29 16:58 | XMS_ITS | Encounter Summary ---
Author Organization [facility] [place] [address] Care Team Providers Care Manager Tax Name Role Phone Aura Jay MD Primary Care Provider Reason for Visit * Reason Comments Other ? migraine Encounter Details Date Type Department Care Team (Late st Contact Info) Description 06/22/2011 8:45 AM EST Office Visit [place] [phone] Solomon Beasley MD [facility] DR P[place] [address] Migraine headache (Primary Dx) Discharge Disposition: Home [...] is going to be inducted into the [employer] because she is an excellent student. 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 At any rate, last winter she developed a severe headache along with some agitation and confusion. She was in [facility] for a period of time, and [...] she was in [employer] at [employer]. 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 She just recently has met a counselor [...] Romberg test. There is no ataxia on hvqmmz-fa-qifo testing. Rapid alternating movements are carried out [...] diagnosis is migraine. CC: Darwin Dominguez M.D. [facility] documented in this encounter Plan of Treatment Not on file documented as of this encounter Visit Diagnoses Diagnosis Migraine headache- Primary Migraine, unspecified, without mention of intractable migraine without mention of status migrainosus documented in this encounter Care Teams Manager Tax Relationship Specialty Start Date End Date Aura Jay MD [facility]ILD [facility]VOCACY & [place] [address] PCP - General 07/06/10 07/06/23 documented as of this encounter
--- OUTSIDE RECORDS SUMMARY | 2024-03-29 16:58 | XMS_ITS | Encounter Summary ---
Author Organization [facility] [place] [address] Care Team Providers Care Olive Packer Name Role Phone Juan Luis Luevano RHETT Primary Care Provider [phone] Encounter Details Date Type Department Care Team (Late st Contact Info) Description 10/13/2023 11:00 AM EST Office Visit Infectious Disease at [facility] [place] [address] Franchesca Black, dress fitter advice encounter Social History Tobacco Use Types [...] to last [place], Cerda Netta Layover in [place] Departure date: 11/17 Length of trip: little over a week Purpose of travel: [employer] Trip Assisting doctors/patient check ins/Vital Signs Potential exposure to blood and body fluids Will check on HIV exposure prophylaxis-will call if needed and not supplied by Liquid Scenarios Excursions-Shops/beach Type of environment:Urban Accommodations: Hostels Medical [...] denies immunosuppression. Denies history of HIV, transplants, asbestos handler steroid use or malignancy with chemotherapy or [...] efforts in containing the ZIKV outbreak in [place], a combination of the insecticide naled and the larvicide Bacillus thuringiensis israelensis appears most effective in controlling mosquito populations. See Aedes Mosquito Distribution ([place]) for the Aedes range in the [place]. A. albopictus is widely distributed in [place], and autochthonous [facility] of ZIKV [facility]. The vectorial capacity of any [...] occur via vaginal, anal, or oral sex. Uqhn-od-ltcfty sexual transmission occurs more commonly than cyixzb-pb-asrz or rvkx-vz-wsbk transmission. Only 1 documented case of znhwia-cn-waga transmission during vaginal sex has been reported. 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 Traveler given an official International Certificate of Vaccine or Prophylaxis (ICVP) for vaccine(s) received, and advised to carry original card with travel. Follow-up Recommendations: Advised traveler to contact [facility] if travel plans change or other concerns arise. Patient advised to call travel clinic if they return from trip with any illness. Time spent in travel counselin minutes. Vaccine information sheets given. documented in this encounter Plan of Treatment Not on file documented as of this encounter Visit Diagnoses Diagnosis Travel advice encounter documented in this encounter Care Teams Olive Packer Relationship Specialty Start Date End Date Juan Luis Luevano DNP [address] [place] [address] [place] [address] PCP - General Family Medicine 07/07/23 documented as of this encounter
--- OUTSIDE RECORDS SUMMARY | 2024-03-29 16:58 | XMS_ITS | Clinical Summary ---
Author Organization [facility] Address [address] [place] [address] Care Team Providers Care Instrument Lens Generator Name Role Phone BenTommy bardales ND Primary Care Provider [phone] Medications Medication Sig Dispensed Refills Start Date End Date Status UNKNOWN TO PATIENT Active Encounters Date Type Department Care Team Description 03/22/2024 Lab Requisition [facility] Pathology & Laboratory Medicine - [facility] [address] [place] [address] Outr Resulting Lab, Provider from Last 3 [...] series) 06/17 COVID-19 Vaccine (2022-24 season) 2023 Procedures Procedure Name Priority Date/Time Associated Diagnosis Comments H. PYLORI ANTIGEN Routine 03/22/2024 7:00 EDT from Last 3 Months Results * H. PYLORI ANTIGEN (03/22/2024 7:00 EDT) H. Pylori Negative Negative 03/26/2024 14:05 EDT [facility] Comment:Indicates the absenc e of H. pylori stool antigen, (or the level of antigen is below that which can be detected by the assay) Feces SPECIMEN FROM RECTUM / Unknown 03/22/2024 7:00 EDT 03/22/2024 17:22 EDT Narrative [facility] - 03/26/2024 14:05 EDT New Liaison XL testing method used as of 06/05/2023 Provider Outr Resulting Lab MICROBIOLOGY - GENERAL ORDERABLES [facility] [address] [place] [address] from Last 3 Months Care Teams Instrument Lens Generator Relationship Specialty Start Date End Date Tommy Contreras ND [facility] [place], [place] [id number] PCP - General 12/04/13
--- OUTSIDE RECORDS SUMMARY | 2024-03-29 16:58 | XMS_ITS | Encounter Summary ---
[place] [address] Care Team Providers Care Farm Rancher Name Role Phone Juan Luis Luevano DNP Primary Care Provider [phone] Encounter Details Date Type Department Care Team [...] on filedocumented in this encounter Care Teams Farm Rancher Relationship Specialty Start Date End Date Juan Luis Luevano DNP [address] [place] [address] PCP - General Family Medicine 07/07/23 documented as of this encounter
--- OUTSIDE RECORDS SUMMARY | 2024-03-29 16:58 | XMS_ITS | Encounter Summary ---
[place] [address] Care Team Providers Care Electrotype Servicer Name Role Phone Juan Luis Luevano DNP Primary Care Provider [phone] Encounter Details Date Type Department Care Team [...] on filedocumented in this encounter Care Teams Electrotype Servicer Relationship Specialty Start Date End Date Juan Luis Luevano DNP [address] [place] [address] PCP - General Family Medicine 07/07/23 documented as of this encounter
--- OUTSIDE RECORDS SUMMARY | 2024-03-29 16:58 | XMS_ITS | Encounter Summary ---
[place] [address] Care Team Providers Care Portal Architect Name Role Phone Aura Jay MD Primary Care Provider [phone] Encounter Details Date Type Department Care Team (Latest Contact Info) Description 06/23/2023 [place] [phone] Brandan Larkin MD [facility] [address] [place] [address] Primary female infertility Social History Tobacco Use [...] 7:06 AM EST) Luteinizing Hormone 1.3 mlU/ML [facility] Comment: Reference Ranges Male: ? 1.7-8.6 mIU/mL Female ?? Follicular: ?2.4-12.6 mIU/mL ?? Ovulation: ? 14.0-95.6 mIU/mL ?? Luteal: ?1.0-11.4 mIU/mL ?? Postmenopausal: ?7.7-58.5 mIU/mL Blood 07/17/2023 7:06 AM EST 07/17/2023 7:09 AM EST Narrative Resulting Agency Comment Spec In Lab Brandan Larkin MD CHEMISTRY ORDERABLES [facility] [place] [address] * Estradiol (07/17/2023 7:06 AM EST) Estradiol 414 pg/mL [facility] Comment: Reference ranges: Males: Adult: ? 11 to 43 pg/mL Females: Non- females: ?Follicular: ??12-233 pg/mL ?Ovulation: ?? 41-398 pg/mL ?Luteal: ?22-341 pg/mL ?Postmenopausal: ?? <5 - 138 pg/mL females: ?1st trimester: ??154-3243 pg/mL ?2nd trimester: ??1561-57344 pg/mL ?3rd trimester: ??8525- >38456 pg/mL Blood 07/17/2023 7:06 AM EST 07/17/2023 7:09 AM EST Narrative Resulting Agency Comment Spec In Lab Brandan Larkin MD CHEMISTRY ORDERABLES Performing Organization Address [facility] Co de Phone Number [facility] [place] [address] * Progesterone (07/17/2023 7:06 AM EST) Progesterone 0.76 ng/mL [facility] Comment: Reference Range [...] MD CHEMISTRY ORDERABLES Performing Organization Address [facility] Co de Phone Number [facility] [place] [address] * Beta HCG, quantitative (07/17/2023 7:06 AM EST) Pathologist [facility] Beta Human Chorionic Gonadotropin, Quantitative <1 mlU/ML [facility] Comment: REFERENCE RANGES NON- FEMALE: [...] ? 8,175 - 55,868 ?18 weeks ? 1,781 - 38,369 This result was generated using a Octavio Ralf immunoassay. ??Results obtained from other methods or manufacturers cannot be used interchangeably with this method. Blood 07/17/2023 7:06 AM EST 07/17/2023 7:09 AM EST Narrative Resulting Agency Comment Spec In Lab Brandan Larkin MD CHEMISTRY ORDERABLES Performing Organization Address City/[facility] Co de Phone Number [facility] [place] [address] * Follicle Stimulating Hormone (07/17/2023 7:06 AM EST) Follicle Stimulating Hormone 24.2 mlU/ML [facility] Comment: Reference Ranges Male: ? 1.5-12.4 mIU/mL Female ?? Follicular: ?3.5-12.5 mIU/mL ?? Ovulation: ? 4.7-21.5 mIU/mL ?? Luteal: ?1.7-7.7 mIU/mL ?? Postmenopausal: ?25.8-134.8 mIU/mL Blood 07/17/2023 7:06 AM EST 07/17/2023 7:09 AM EST Narrative Resulting Agency Comment Spec In Lab Brandan Larkin MD CHEMISTRY ORDERABLES Performing Organization Address [facility] de Phone Number [facility] [place] [address] documented in this encounter Visit Diagnoses Diagnosis Primary female infertility Female infertility of unspecified origin documented in this encounter Care Teams Portal Architect Relationship Specialty Start Date End Date Aura Jay MD [facility] CHILD ADVOCACY & [place] [address] PCP - General 07/06/10 07/06/23 documented as of this encounter
--- OUTSIDE RECORDS SUMMARY | 2024-03-29 16:58 | XMS_ITS | Encounter Summary ---
[place] [address] Care Team Providers Care Coding Coordinator Name Role Phone Juan Luis Luevano DNP Primary Care Provider [phone] Encounter Details Date Type Department Care Team [...] on filedocumented in this encounter Care Teams Coding Coordinator Relationship Specialty Start Date End Date Juan Luis Luevano DNP [address] [place] [address] PCP - General Family Medicine 07/07/23 documented as of this encounter
--- OUTSIDE RECORDS SUMMARY | 2024-03-29 16:58 | XMS_ITS | Encounter Summary ---
Author Organization [facility] [place] [address] Care Team Providers Care Grade And Center Marker Name Role Phone Juan Luis Luevano DNP Primary Care Provider [phone] Encounter Details Date Type Department Care Team (Latest Contact Info) Description 07/07/2023 6:55 AM EST Laboratory Appointment Lab [address] [place] [phone] Primary female infertility Social History Tobacco Use [...] Larkin MD CHEMISTRY ORDERABLES Performing Organization Address [facility] de Phone Number [facility] [address] * Luteinizing Hormone (07/07/2023 7:13 AM EST) Luteinizing Hormone 1.7 mlU/ML [facility] Comment: Reference Ranges Male: ? 1.7-8.6 mIU/mL Female ?? Follicular: ?2.4-12.6 mIU/mL ?? Ovulation: ? 14.0-95.6 mIU/mL ?? Luteal: ?1.0-11.4 mIU/mL ?? Postmenopausal: ?7.7-58.5 mIU/mL Blood 07/07/2023 7:13 AM EST 07/07/2023 7:19 AM EST Narrative Resulting Agency Comment Spec In Lab Brandan Larkin MD CHEMISTRY ORDERABLES Performing Organization Address [facility] de Phone Number [facility] [place] [address] * Beta HCG, quantitative (07/07/2023 7:13 AM EST) Beta Human Chorionic Gonadotropin, Quantitative <1 mlU/ML [facility] Comment: REFERENCE RANGES NON- FEMALE: ??Less [...] - 56,451 ?17 weeks ? 8,175 - 06,868 ?18 weeks ? 8,401 - 72,176 This result was generated using a Octavio Ralf immunoassay. ??Results obtained from other methods or manufacturers cannot be used interchangeably with this method. Blood 07/07/2023 7:13 AM EST 07/07/2023 7:19 AM EST Narrative Resulting Agency Comment Spec In Lab Brandan Larkin MD CHEMISTRY ORDERABLES [facility] [place] [address] * Progesterone (07/07/2023 7:13 AM EST) Progesterone 0.34 ng/mL [facility] Comment: Reference Range [...] Organization Address City/[facility] Co de Phone Number [facility] [place] [address] * Estradiol (07/07/2023 7:13 AM EST) Estradiol <5 pg/mL [facility] Comment: Reference ranges: Males: Adult: ? 11 to 43 pg/mL Females: Non- females: ?Follicular: ??12-233 pg/mL ?Ovulation: ?? 41-398 pg/mL ?Luteal: ?22-341 pg/mL ?Postmenopausal: ?? <5 - 138 pg/mL females: ?1st trimester: ??154-3243 pg/mL ?2nd trimester: ??1561-58652 pg/mL ?3rd trimester: ??8525- >95131 pg/mL Blood 07/07/2023 7:13 AM EST 07/07/2023 7:19 AM EST Narrative Resulting Agency Comment Spec In Lab Brandan Larkin MD CHEMISTRY ORDERABLES Performing Organization Address City/[facility] Co de Phone Number [facility] [place] [address] documented in this encounter Visit Diagnoses Diagnosis Primary female infertility Female infertility of unspecified origin documented in this encounter Care Teams Grade And Center Marker Relationship Specialty Start Date End Date Juan Luis Luevano DNP [address] [address] PCP - General Family Medicine 07/07/23 documented as of this encounter
--- OUTSIDE RECORDS SUMMARY | 2024-03-29 16:58 | XMS_ITS | Encounter Summary ---
Author Organization [facility] [place] [address] Care Team Providers Care Criminal Records Technician Name Role Phone Juan Luis Luevano DNP Primary Care Provider [phone] Encounter Details Date Type Department Care Team (Late st Contact Info) Description 10/13/2023 Orders [place] [address] Daisy Black MD [facility] [address] [place] [address] Travel advice encounter Social History Tobacco Use [...] encounter documented in this encounter Care Teams Criminal Records Technician Relationship Specialty Start Date End Date Juan Luis Luevano DNP [address] [place] [address] PCP - General Family Medicine 07/07/23 documented as of this encounter
--- OUTSIDE RECORDS SUMMARY | 2024-03-29 16:58 | XMS_ITS | Encounter Summary ---
[place] [address] Care Team Providers Care Advertising Rep Name Role Phone Juan Luis Luevano RHETT Primary Care Provider [phone] Reason for Referral * Diagnostic Test (Routine) - Pending Review Specialty Diagnoses / Procedures Referred By Contac t Referred To Contact Radiology Diagnoses Primary female infertility Procedures US Ovulation Induction Stacia Larkin MD [address] [address] [place] [address] Referral ID Status Reason Start Date Expiration Date Visits Requested Visits Authorized [id number] Pending Review Specialty Service Requested 3 12/24/2024 1 1 Reason for Visit * Diagnostic Test (Routine) - Pending Review Specialty Diagnoses / Procedures Referred By Contac t Referred To Contact Radiology Diagnoses Primary female infertility Procedures US Ovulation Induction Stacia Larkin MD [address] [place] [address] [place] [address] Referral ID Status Reason Start Date Expiration Date Visits Requested Visits Authorized [id number] Pending Review Specialty Service Requested 3 12/24/2024 1 1 Encounter Details Date Type Department Care Team (Latest Contact Info) Description 07/17/2023 7:45 AM EST - 07/17/2023 11:59 PM EST Hospital [place] [address] Stacia Larkin MD [facility] [address] [place] [address] Primary female infertility Discharge Disposition: Home Social [...] who have questions, please contact the health care taker that requested your imaging first. ? Richar Peñaloza, Staff Physician Electronically Signed Final Report ?? 07/17/2023 08:52 am Narrative 07/17/2023 8:53 AM EST Follicles Report ?(Signed Final 07/17/2023 08:52 am) PATIENT INFO: ID #: ? [id number] ?: ??[birth year] (28 yrs)(F) Name: ? BRIGETTE MOSS ? Visit Date: 07/17/2023 07:56 am PERFORMED BY: Performed By: ? Es Hawkins RDMS Attending: ?Jh VILLAREAL, Richar Rivas Resident: ? Vikram VILLAREAL, Lavinia Chaves Referred By: ?STACIA LARKIN Location: ? [place] SERVICE(S) PROVIDED: UOI - Ovulation Induction - [id number] ?[id number] INDICATIONS: ANTRAL FOLLICLE COUNT AND SIZE; UTERINE [...] 07/17/2023 08:52 am) PATIENT INFO: ID #: [id number] : [birth year] (28 yrs)(F) Name: BRIGETTE MOSS Visit Date: 07/17/2023 07:56 am PERFORMED BY: Performed By: Es Hawkins RDMS Attending: Richar Peñaloza MD Resident: Lavinia Sue MD Referred By: STACIA LARIKN Location: [place] SERVICE(S) PROVIDED: UOI - Ovulation Induction - [id number] INDICATIONS: ANTRAL FOLLICLE COUNT AND SIZE; UTERINE [...] who have questions, please contact the health care taker that requested your imaging first. Richar Peñaloza, Staff Physician Electronically Signed Final Report 07/17/2023 08:52 am Stacia Larkin MD IMG US PELVIC ORDERA BLES documented in this encounter Visit Diagnoses Diagnosis Primary female infertility Female infertility of unspecified origin documented in this encounter Care Teams Advertising Rep Relationship Specialty Start Date End Date Juan Luis Luevano DNP [address] [place] [address] PCP - General Family Medicine 07/07/23 documented as of this encounter
--- OUTSIDE RECORDS SUMMARY | 2024-03-29 16:58 | XMS_ITS | Encounter Summary ---
Author Organization [facility] [place] [address] Care Team Providers Care Convict Guard Name Role Phone Juan Luis Luevano DNP Primary Care Provider [phone] Encounter Details Date Type Department Care Team (Latest Contact Info) Description 07/17/2023 6:55 AM EST Laboratory Appointment Lab [address] [place] [phone] Primary female infertility Social History Tobacco Use [...] In Lab Brandan Larkin MD CHEMISTRY ORDERABLES [facility] [place] [address] * Estradiol (07/17/2023 7:06 AM EST) Estradiol 414 pg/mL [facility] Comment: Reference ranges: Males: Adult: ? 11 to 43 pg/mL Females: Non- females: ?Follicular: ??12-233 pg/mL ?Ovulation: ?? 41-398 pg/mL ?Luteal: ?22-341 pg/mL ?Postmenopausal: ?? <5 - 138 pg/mL females: ?1st trimester: ??154-3243 pg/mL ?2nd trimester: ??1561-87436 pg/mL ?3rd trimester: ??8525- >32616 pg/mL Blood 07/17/2023 7:06 AM EST 07/17/2023 7:09 AM EST Narrative Resulting Agency Comment Spec In Lab Brandan Larkin MD CHEMISTRY ORDERABLES Performing Organization Address [facility] Co de Phone Number [facility] [place] [address] * Follicle Stimulating Hormone (07/17/2023 7:06 AM EST) Follicle Stimulating Hormone 24.2 mlU/ML [facility] Comment: Reference Ranges Male: ? 1.5-12.4 mIU/mL Female ?? Follicular: ?3.5-12.5 mIU/mL ?? Ovulation: ? 4.7-21.5 mIU/mL ?? Luteal: ?1.7-7.7 mIU/mL ?? Postmenopausal: ?25.8-134.8 mIU/mL Blood 07/17/2023 7:06 AM EST 07/17/2023 7:09 AM EST Narrative Resulting Agency Comment Spec In Lab Brandan Larkin MD CHEMISTRY ORDERABLES Performing Organization Address [facility] de Phone Number [facility] [place] [address] * Beta HCG, quantitative (07/17/2023 7:06 AM EST) Beta Human Chorionic Gonadotropin, Quantitative <1 mlU/ML [facility] Comment: REFERENCE RANGES NON- FEMALE: ??Less [...] ? 8,175 - 55,868 ?18 weeks ? 8,985 - 98,672 This result was generated using a Octavio Ralf immunoassay. ??Results obtained from other methods or manufacturers cannot be used interchangeably with this method. Blood 07/17/2023 7:06 AM EST 07/17/2023 7:09 AM EST Narrative Resulting Agency Comment Spec In Lab Brandan Larkin MD CHEMISTRY ORDERABLES Performing Organization Address [facility] de Phone Number [facility] [place] [address] * Progesterone (07/17/2023 7:06 AM EST) Progesterone 0.76 ng/mL [facility] Comment: Reference [...] Larkin MD CHEMISTRY ORDERABLES Performing Organization Address [facility] Co de Phone Number [facility] [place] [address] documented in this encounter Visit Diagnoses Diagnosis Primary female infertility Female infertility of unspecified origin documented in this encounter Care Teams Convict Guard Relationship Specialty Start Date End Date Juan Luis Luevano DNP [address] [place] [address] PCP - General Family Medicine 07/07/23 documented as of this encounter
--- OUTSIDE RECORDS SUMMARY | 2024-03-29 16:58 | XMS_ITS | Encounter Summary ---
[place] [address] Care Team Providers Care Migration Agent Name Role Phone Juan Luis Luevano RHETT Primary Care Provider [phone] Reason for Referral * Diagnostic Test (Routine) - Pending Review Specialty Diagnoses / Procedures Referred By Contac t Referred To Contact Radiology Diagnoses Primary female infertility Procedures US Ovulation Induction Stacia Larkin MD [address] [address] [place] [address] Referral ID Status Reason Start Date Expiration Date Visits Requested Visits Authorized [id number] Pending Review Specialty Service Requested 3 12/24/2024 1 1 Reason for Visit * Diagnostic Test (Routine) - Pending Review Specialty Diagnoses / Procedures Referred By Contac t Referred To Contact Radiology Diagnoses Primary female infertility Procedures US Ovulation Induction Stacia Larkin MD [address] [place] [address] [place] [address] Referral ID Status Reason Start Date Expiration Date Visits Requested Visits Authorized [id number] Pending Review Specialty Service Requested 3 12/24/2024 1 1 Encounter Details Date Type Department Care Team (Latest Contact Info) Description 07/07/2023 8:16 AM EST - 07/07/2023 11:59 PM EST Hospital [place] [address] Stacia Larkin MD [facility] [address] [place] [address] Primary female infertility Discharge Disposition: Home Social [...] interpretation. Electronically signed by: Sahara Deleon MD, [facility] ([phone]), at 07/07/2023 8:44 AM Thank you for letting us participate in the care of this patient. If you are a health care provider and have any questions regarding this report, please contact the number above. For patients who have questions, please contact the health direct care staffer that requested your imaging first. ??Sahara Deleon, BEKAH [facility] & Dept Chair - Rad Electronically Signed Final Report ?? 07/07/2023 08:49 am Narrative 07/07/2023 8:50 AM EST Follic[place] Report ?(Signed Final 07/07/2023 08:49 am) PATIENT INFO: ID #: ? [id number] ?: ??[birth year] (28 yrs)(F) Name: ? BRIGETTE MOSS ? Visit Date: 07/07/2023 08:38 am PERFORMED BY: Attending: ?Adrienne VILLAREAL, Sahara Chun Performed By: ? Charisma Trejo RDMS Referred By: ?STACIA LARKIN Location: ? [place] SERVICE(S) PROVIDED: UOI - Ovulation Induction - [id number] INDICATIONS: ANTRAL FOLLICLE COUNT AND SIZE; UTERINE [...] 07/07/2023 08:49 am) PATIENT INFO: ID #: [id number] : [birth year] (28 yrs)(F) Name: BRIGETTE MOSS Visit Date: 07/07/2023 08:38 am PERFORMED BY: Attending: Sahara Deleon MD Performed By: Charisma Trejo RDMS Referred By: STACIA LARKIN Location: [place] SERVICE(S) PROVIDED: UOI - Ovulation Induction - [id number] INDICATIONS: ANTRAL FOLLICLE COUNT AND SIZE; UTERINE [...] interpretation. Electronically signed by: Sahara Deleon MD, [facility] ([phone]), at 07/07/2023 8:44 AM Thank you for letting us participate in the care of this patient. If you are a health care provider and have any questions regarding this report, please contact the number above. For patients who have questions, please contact the health direct care staffer that requested your imaging first. Sahara Deleon, [facility] & Dept Chair - Rad Electronically Signed Final Report 07/07/2023 08:49 am Stacia Larkin MD IMG US PELVIC ORDERA BLES documented in this encounter Visit Diagnoses Diagnosis Primary female infertility Female infertility of unspecified origin documented in this encounter Care Teams Migration Agent Relationship Specialty Start Date End Date Juna Luis Luevano DNP [address] [place] [address] PCP - General Family Medicine 07/07/23 documented as of this encounter
--- OUTSIDE RECORDS SUMMARY | 2024-03-29 16:58 | XMS_ITS | Encounter Summary ---
[place] [address] Care Team Providers Care Box Maker Paperboard Name Role Phone Aura Jay MD Primary Care Provider [phone] Encounter Details Date Type Department Care Team (Latest Contact Info) Description 09/12/2010 5:29 PM EST - 09/13/2010 7:16 PM EST Hospital Encounter [facility] [place] [address] [place] [address] [place] [address] Discharge Disposition: Home Social History Tobacco Use [...] Active and Recently Administered Medications Care Teams Box Maker Paperboard Relationship Specialty Start Date End Date Aura Jay MD [facility] CHILD ADVOCACY & [place] [address] PCP - General 07/06/10 07/06/23 documented as of this encounter
--- OUTSIDE RECORDS SUMMARY | 2024-03-29 16:59 | XMS_ITS | Encounter Summary ---
Author Organization [facility] Address [address] [place] [address] Care Team Providers Care Switchboard Troubleshooter Name Role Phone Tommy Contreras ND Primary Care Provider [phone] Encounter Details Date Type Department Care Team (Latest Contact Info) Description 06/26/2015 16:25 EST - 06/26/2015 22:00 [facility] Hospital Encounter [facility] - [address] [address] Martín Esteban, FIDEL [address] [place] [id number] Discharge Disposition: Home or Self Care Social [...] on filedocumented in this encounter Care Teams Switchboard Troubleshooter Relationship Specialty Start Date End Date Tommy Contreras ND [address] [place], [place] [address] PCP - General 12/04/13 documented as of this encounter
--- OUTSIDE RECORDS SUMMARY | 2024-03-29 16:59 | XMS_ITS | Encounter Summary ---
Author Organization [facility] Address [address] [place] [address] Care Team Providers Care Mill Operator Name Role Phone Unknown, Provider Primary Care Provider [phone] Encounter Details Date Type Department Care Team (Latest Contact Info) Description 11/29/2013 10:16 EDT - 11/29/2013 22:00 EDT Hospital Encounter [address] [address] Rebecca Funes ND [address] [place] [address] Discharge Disposition: Home or Self Care Social [...] on filedocumented in this encounter Care Teams Mill Operator Relationship Specialty Start Date End Date Unknown, Provider, PCP - General 11/29/13 12/03/13 documented as of this encounter
--- OUTSIDE RECORDS SUMMARY | 2024-03-29 16:59 | XMS_ITS | Encounter Summary ---
Author Organization [facility] Address [address] [place] [address] Care Team Providers Care Carpenters Helper Name Role Phone Tommy Contreras ND Primary Care Provider [phone] Encounter Details Date Type Department Care Team (Late st Contact Info) Description 03/29/2016 Results Only [facility]- [facility] [phone] Ashley Ng NP [address] [phone] Social History Tobacco Use Types [...] ? BRIGETTE MOSS ? Accession #: ? [id number] : ? 1995 (Age: 20) ??F ?Collect Date: ? 03/29/2016 Location: ? [facility] ? Receive Date: ? 03/30/2016 Provider: ?ASHLEY NG FIELD MARKETING TEAM LEADER Copy to: ? Specimen/Source: ?Pap Test, Cervix/Endocervix, ThinPrep Imaging System with manual evaluation Last Menstrual Period: ? 03/13/2016 Hormonal/Contracep tive Status: ? None Other: ? Expeller Worker Clinical/Treatment Hx - None ? SPECIMEN ADEQUACY ? Satisfactory for Evaluation - transformation zone component present GENERAL CATEGORIZATION ? Negative for Intraepithelial Lesion or Malignancy INTERPRETATION ? Reactive cellular changes associated with inflammation present (includes repair). ? Document reviewed and electronically signed by: ? JARROD SLOAN MD ? Report Date: ??04/05/2016 17:28 End of Report [facility] 03/29/2016 03/30/2016 Ashley Ng FIELD MARKETING TEAM LEADER PATHOLOGY ORDERABLES [facility] [address] [place] [address] documented in this encounter Visit Diagnoses Not on filedocumented in this encounter Care Teams Carpenters Helper Relationship Specialty Start Date End Date Tommy Contreras ND [facility] [place] [address] PCP - General 12/04/13 documented as of this encounter
--- OUTSIDE RECORDS SUMMARY | 2024-03-29 16:59 | XMS_ITS | Encounter Summary ---
Author Organization [facility] Address [address] [place] [address] Care Team Providers Care Presiding Judge Name Role Phone Tommy Contreras ND Primary Care Provider [phone] Encounter Details Date Type Department Care Team (Late st Contact Info) Description 06/26/2015 Results Only [facility] [phone] Martín Esteban, FIDEL [address] [place], [place] [address] Social History Tobacco Use Types Packs/Day Years [...] Result No polys seen 06/26/2015 13:06 EST [facility] Gram Smear Result No bacteria seen 06/26/2015 13:06 EST [facility] Result No growth 06/28/2015 7:12 EST [facility] SPECIMEN FROM SKIN / Unknown 06/26/2015 8:12 EST 06/26/2015 10:50 EST Comment:Specimen submitted o n a swab Martín PARRA MICROBIOLOGY - GENE RAL ORDERABLES [facility] [address] [place] [address] documented in this encounter Visit Diagnoses Not on filedocumented in this encounter Care Teams Presiding Judge Relationship Specialty Start Date End Date Tommy Contreras ND [facility] [place] [address] PCP - General 12/04/13 documented as of this encounter
--- OUTSIDE RECORDS SUMMARY | 2024-03-29 16:59 | XMS_ITS | Encounter Summary ---
Author Organization [facility] Address [address] [place] [address] Care Team Providers Care Coffee Taster Name Role Phone Tommy Contreras ND Primary Care Provider [phone] Encounter Details Date Type Department Care Team (Late st Contact Info) Description 04/03/2014 Results Only [facility] [address] [place], [place] [address] Rebecca Nagel MD [address] [place] [address] [address] [place], [place] [phone] Social History Tobacco Use Types Packs/Day Years [...] ? BRIGETTE MOSS ? Accession #: ? [id number] : ? 1995 (Age: 18) ??F ?Collect [...] Nagel MD PATHOLOGY ORDERABLES [facility] [address] [place] [address] documented in this encounter Visit Diagnoses Not on filedocumented in this encounter Care Teams Coffee Taster Relationship Specialty Start Date End Date Tommy Contreras ND [address] [place] [address] PCP - General 12/04/13 documented as of this encounter
--- OUTSIDE RECORDS SUMMARY | 2024-03-29 16:59 | XMS_ITS | Encounter Summary ---
Author Organization [facility] Address [address] [place] [address] Care Team Providers Care Pump Machine Operator Name Role Phone Unknown, Provider Primary Care Provider [phone] Encounter Details Date Type Department Care Team (Late st Contact Info) Description 11/29/2013 Results Only [facility] [phone] Rebecca Funes ND [address] [place] [address] Social History Tobacco Use Types Packs/Day Years [...] PF4 ORD ERABLES [facility] [address] [place] [address] * HEMAGRAM (11/29/2013 8:52 EDT) WBC 5.16 [...] & PF4 ORD ERABLES Performing Organization Address [facility] Co de Phone Number [facility] [address] [place] [address] * TSH (11/29/2013 8:52 EDT) TSH 1.00 0.35 - 5.00 uIU/ml [facility] 11/29/2013 8:52 EDT 11/29/2013 13:50 EDT Rebecca Funes ND CHEMISTRY & BLOOD GA S ORDERABLES Performing Organization Address [facility] de Phone Number [facility] [address] [place] [address] * TRANSFERRIN SATURATION (11/29/2013 8:52 EDT) Iron 103 37 - 170 ug/dl [facility] TIBC 449 265 - 497 ug/dl [facility] Iron Saturation 23 20 - 55 % [facility] 11/29/2013 8:52 EDT 11/29/2013 13:50 EDT Rebecca Funes ND CHEMISTRY & BLOOD GA S ORDERABLES Performing Organization Address [facility] Co de Phone Number [facility] [address] [place] [address] * T4 (11/29/2013 8:52 EDT) T4, Total 6.3 4.5 - 10.9 ug/dL [facility] 11/29/2013 8:52 EDT 11/29/2013 13:50 EDT Rebecca Funes ND CHEMISTRY & BLOOD GA S ORDERABLES Performing Organization Address [facility] Phone Number [facility] [address] [place] [address] * PROGESTERONE (11/29/2013 8:52 EDT) Progesterone 0.8 [...] BLOOD GA S ORDERABLES Performing Organization Address [facility] [place] [address] * LIPID PROFILE (INCLUDES CHOLESTEROL, TRIGLYCERIDES, HDL, LDL) (11/29/2013 8:52 EDT) Cholesterol 109 mg/dl [facility] Comment: Desirable:<200 Borderline High:200-239 High:>cs=581 Triglycerides 48 mg/dl [facility] Comment: Normal:<150 Borderline High:150-199 High:200-499 Very High:>sc=390 HDL 46 mg/dl [facility] Comment: Low:<40 Normal:40-60 Desirable: >60 LDL, Calculated 53 mg/dl [facility] Comment: Optimal:<100 Near Optimal:100-129 Borderline High:130-159 High:160-189 Very High:>qv=539 Chol/HDL Ratio 2.4 [facility] Fasting? Unknown [facility] Non HDL Cholesterol 63 mg/dl [facility] Comment: Desirable:<130 Borderline:130-159 High: 160-189 Very High: >qb=652 11/29/2013 8:52 EDT 11/29/2013 13:50 EDT Rebecca Funes ND CHEMISTRY & BLOOD GA S ORDERABLES Performing Organization Address [facility] de Phone Number [facility] [address] [place] [address] * T3 FREE (11/29/2013 8:52 EDT) T3, Free 3.0 2.3 - 4.2 pg/mL [facility] 11/29/2013 8:52 EDT 11/29/2013 13:50 EDT Rebecca Funes ND CHEMISTRY & BLOOD GA S ORDERABLES Performing Organization Address [facility] Phone Number [facility] [address] [place] [address] * (ABNORMAL) FERRITIN (11/29/2013 8:52 EDT) Ferritin 8(L) 10 - 291 ng/mL [facility] 11/29/2013 8:52 EDT 11/29/2013 13:50 EDT Rebecca Funes ND CHEMISTRY & BLOOD GA S ORDERABLES Performing Organization Address [facility] de Phone Number [facility] [address] [place] [address] * ESTROGENS, ESTRONE (E1) AND ESTRADIOL (E2), FRACTIONATED, SERUM (11/29/2013 8:52 EDT) Estrone 40 pg/mL [facility] Comment: (Note) -- REFERENCE VALUE -- Premenopausal :17-200 Postmenopausal : 7-40 Estradiol, Serum 47 pg/mL [facility] Comment: (Note) -- REFERENCE VALUE -- Premenopausal: 15-350 (E2 levels vary widely through the menstrual cycle.) Postmenopausal: <10 Performed or Referred by: [facility] Labs: [facility], [address] [facility], [place] [address], Lab Dir: Bear Rojas III, MD 11/29/2013 8:52 EDT 11/29/2013 13:50 EDT Rebecca Funes ND CHEMISTRY & BLOOD GA S ORDERABLES [facility] [address] [place] [address] * (ABNORMAL) COMPREHENSIVE METABOLIC PANEL (CMP) (11/29/2013 [...] ND CHEMISTRY & BLOOD GA S ORDERABLES [facility] [address] [place] [address] documented in this encounter Visit Diagnoses Not on filedocumented in this encounter Care Teams Pump Machine Operator Relationship Specialty Start Date End Date Unknown, Provider, PCP - General 11/29/13 12/03/13 documented as of this encounter
--- OUTSIDE RECORDS SUMMARY | 2024-03-29 16:59 | XMS_ITS | Encounter Summary ---
Author Organization [facility] Address [address] [place] [address] Care Team Providers Care Shank Sorter Name Role Phone Tommy Contreras ND Primary Care Provider [phone] Reason for Visit * Reason Comments Laceration left index finger la ceration/avulsion finger pinched in grate in milking parlor, dT UTD , Encounter Details Date Type Department Care Team (Late st Contact Info) Description 09/18/2014 7:16 EST - 09/18/2014 7:[address] [facility] Emergency Department - Main [place] [address] [place] [address] Edwin Balderas, HAFSA [address] [place] [address] Emergency, MD Edward Fingertip avulsion (Primary Dx); [...] finger laceration/avulsion finger pinched in grate in [facility] Jaime gallagher , The patient is a [...] Past Surgical History Procedure Laterality Date ??? [place] tooth extraction Not on File History Substance [...] PATIENT added in this encounter Care Teams Shank Sorter Relationship Specialty Start Date End Date Tommy Contreras ND [address] [place] [address] PCP - General 12/04/13 documented as of this encounter
--- OUTSIDE RECORDS SUMMARY | 2024-03-29 16:59 | XMS_ITS | Encounter Summary ---
Author Organization [facility] Address [address] [place] [address] Care Team Providers Care Shuttle Bus Driver Name Role Phone Ben, Tommy MANCILLA Primary Care Provider [phone] Encounter Details Date Type Department Care Team (Late st Contact Info) Description 09/22/2014 14:08 EST - 09/22/2014 23:59 EST Hospital Encounter [facility] [address] [place] [address] BenTommy ND [address] [place] [id number] Discharge Disposition: Auto Discharge Social History Tobacco [...] on filedocumented in this encounter Care Teams Shuttle Bus Driver Relationship Specialty Start Date End Date Tommy Contreras ND [address] [place] [address] PCP - General 12/04/13 documented as of this encounter
--- OUTSIDE RECORDS SUMMARY | 2024-03-29 16:59 | XMS_ITS | Encounter Summary ---
Author Organization [facility] Address [address] [place] [address] Care Team Providers Care Lithographic Camera Operator Name Role Phone Tommy Contreras ND Primary Care Provider [phone] Encounter Details Date Type Department Care Team (Late st Contact Info) Description 05/31/2017 Results Only [facility] [phone] Anya Rayo, SOFTWARE TESTING SPECIALIST [address] [place] [phone] Social History Tobacco Use Types Packs/Day Years [...] ? BRIGETTE MOSS ? Accession #: ? [id number] ? : ? 1995 (Age: 21) ??F ?Collect Date: ? 05/31/2017 ? Location: ? [facility] ? Receive Date: ? 06/02/2017 ? Provider: ANYA RAYO [facility]- Copy to: ? Final Report SPECIMEN ADEQUACY [...] types 16,18,31,33,35, 39,45,51,52,56,58, 59,66, and 68 by maintenance job titles mediated amplification. Comments Document reviewed and electronically signed by: ? System Interface ? Report date: 06/15/2017 By the signature above, the attending physician certifies that he/she has personally conducted a gross and/or microscopic examination of the described specimens and rendered or confirmed the above diagnosis. End of Report [facility] 05/31/2017 06/02/2017 Anya Rayo NP PATHOLOGY ORDERABLES [facility] [address] [place] [address] documented in this encounter Visit Diagnoses Not on filedocumented in this encounter Care Teams Lithographic Camera Operator Relationship Specialty Start Date End Date Tommy Contreras ND [address] [place] [address] PCP - General 12/04/13 documented as of this encounter
--- OUTSIDE RECORDS SUMMARY | 2024-03-29 16:59 | XMS_ITS | Encounter Summary ---
Author Organization [facility] Address [address] [place] [address] Care Team Providers Care Track Man Name Role Phone BenTommy CHARO Primary Care Provider [phone] Reason for Visit * Reason Onset Date Comments Appointment Related 01/02/2023 Encounter Details Date Type Department Care Team (Late st Contact Info) Description 01/02/2023 Telephone [facility] [address] [place], [place] [address] Ludwin Pineda MD [address] [facility] [address] [place] [address] Appointment Related Social History Tobacco [...] on filedocumented in this encounter Care Teams Track Man Relationship Specialty Start Date End Date Tommy Contreras ND [facility] [place] [address] PCP - General 12/04/13 documented as of this encounter
== END 2024-03-29 16:54 | disposition home or self-care (01) ==
LOC: LBN 16:53
PROVIDERS: PCP Nurse Practitioner Family; Visit Provider Nurse Practitioner Family
DX: Z23 Encounter for immunization (principal); Z00.00 Encounter for general adult medical examination without abnormal findings; R10.9 Unspecified abdominal pain
CPT/HCPCS: 88142

== ENCOUNTER 2024-06-01 16:25 | Outpatient (REF) | payer BC, SELFPAY ==
--- OUTSIDE RECORDS SUMMARY | 2024-06-01 16:29 | XMS_ITS | Encounter Summary ---
[place] [address] Care Team Providers Care Receiving Team Member Name Role Phone Juan Luis Luevano DNP Primary Care Provider [phone] Encounter Details Date Type Department Care Team [...] on filedocumented in this encounter Care Teams Receiving Team Member Relationship Specialty Start Date End Date Juan Luis Luevano DNP [address] [place] [address] PCP - General Family Medicine 07/07/23 documented as of this encounter
--- OUTSIDE RECORDS SUMMARY | 2024-06-01 16:29 | XMS_ITS | Continuity of Care Document ---
Author Organization [facility] Address [address] [place] [id number] Care Team Providers Care Compensation Consultant Name Role Phone RENU ALEJANDRO DNP Primary Care Physician [phone] Encounter [facility] NBR [id number] Date(s): 04/06/24 - 04/06/[address] [address]- [place] Encounter Diagnosis Abdominal pain(Discharge Diagnosis) - 04/06/24 Discharge Disposition: Home or Self Care Attending Physician: Emelia Townsend MD Admitting Physician: Emelia Townsend MD Allergies, Adverse Reactions, Alerts No Known Allergies Medications Janell Fe 09/02 oral tablet 0 Refill(s) Start Date: 04/06/24 Status: Ordered omeprazole 20 mg oral delayed release capsule 0 Refill(s) Start Date: 04/06/24 Status: Ordered ondansetron 4 mg oral tablet, disintegrating 4 mg = 1 tab, Oral, TID, X 3 days, # 9 tab, 0 Refill(s), 04/09/24 6:01:00 PM CDT, Pharmacy: [id number], 162, cm, 04/06/24 15:16:00 EDT, Height, 49.9, kg, 04/06/24 15:22:00 EDT, Weight Dosing Start Date: 04/06/24 Stop Date: 04/09/24 Status: Ordered sucralfate 1 g oral tablet 0 Refill(s) Start Date: 04/06/24 Status: Ordered traMADol 50 mg oral tablet 0 Refill(s) Start Date: 04/06/24 Status: Ordered Mental Status 04/06/24 Eye Opening Response Meridian Spontaneous ly Best Verbal Response Meridian Oriented Best Motor Response Bonnie Obeys comman ds Meridian Coma Score 15 Results Laboratory List Name Date Lactic Acid 04/06/24 Test Serum Qual 04/06/24 Automated Diff 04/06/24 CBC w/ Diff 04/06/24 Comprehensive Metabolic Panel (CMP) 04/06 Lipase Level 04/06/24 Most recent to oldest [Reference Range]: 1 WBC [4.8-10.8 K/mcL] 7.2 K/mcL (04/06/24 3:05 PM) RBC [4.20-5.40 Million/mcL] 4.85 Million /mcL (04/06/24 3:05 PM) Neutro Auto [42.2-75.2 %] 56.8 % (04/06/24 3:05 PM) Lymph Auto [20.5-51.1 %] 31.8 % (04/06/24 3:05 PM) Weber Auto [1.7-9.3 %] 6.1 % (04/06/24 3:05 PM) Basophil Auto [0.0-0.8 %] 0.4 % (04/06/24 3:05 PM) BUN [7-25 mg/dL] 10 mg/dL (04/06/24 3:45 PM) Glucose Level [70-109 mg/dL] 106 mg/dL (04/06/24 3:45 PM) Potassium Level [3.5-5.1 mmol/L] 3.7 mmo l/L (04/06/24 3:45 PM) Baso Absolute [0.0-0.2 K/mcL] 0.0 K/mcL (04/06/24 3:05 PM) MCV [81.0-99.0 fL] 90.7 fL (04/06/24 3:05 PM) AST [13-39 IntlUnit/L] 14 IntlUnit/L (04/06/24 3:45 PM) ALT [7-52 IntlUnit/L] 20 IntlUnit/L (04/06/24 3:45 PM) MCHC [32.0-37.0 g/dL] 33.5 g/dL (04/06/24 3:05 PM) Osmolality [275-295 mOsm/kg] 275 mOsm/kg (04/06/24 3:45 PM) Sodium Level [136-145 mmol/L] 138 mmol/L (04/06/24 3:45 PM) Lymph Absolute [1.2-3.4 K/mcL] 2.3 K/mcL (04/06/24 3:05 PM) Hct [37.0-47.0 %] 44.0 % (04/06/24 3:05 PM) Lipase Level [11-82 unit/L] 18 unit/L 1 (04/06/24 3:45 PM) Calcium Level [8.6-10.3 mg/dL] 9.3 mg/dL (04/06/24 3:45 PM) Weber Absolute [0.1-0.6 K/mcL] 0.4 K/mcL (04/06/24 3:05 PM) Albumin Level [3.5-5.7 g/dL] 4.4 g/dL (04/06/24 3:45 PM) Protein Total [6.4-8.9 g/dL] 7.1 g/dL (04/06/24 3:45 PM) MCH [27.0-31.0 pg] 30.4 pg (04/06/24 3:05 PM) Neutro Absolute [1.4-6.5 K/mcL] 4.1 K/mc L (04/06/24 3:05 PM) Bilirubin Total [0.3-1.0 mg/dL] 0.7 mg/d L (04/06/24 3:45 PM) Hgb [12.0-16.0 g/dL] 14.8 g/dL (04/06/24 3:05 PM) Alk Phos [34-104 IntlUnit/L] 11 IntlUnit /L *LOW* (04/06/24 3:45 PM) MPV [7.4-10.4 fL] 9.6 fL (04/06/24 3:05 PM) Platelets [130-400 K/mcL] 243 K/mcL (04/06/24 3:05 PM) CO2 [21-31 mmol/L] 26 mmol/L (04/06/24 3:45 PM) Eos Absolute [0.0-0.2 K/mcL] 0.4 K/mcL *HI* (04/06/24 3:05 PM) Lactic Acid Lvl [0.5-2.2 mmol/L] 1.2 mmo l/L (04/06/24 3:45 PM) Chloride Level [98-107 mmol/L] 105 mmol/ L (04/06/24 3:45 PM) RDW-CV [11.5-14.5 %] 13.1 % (04/06/24 3:05 PM) A/G Ratio [1.0-2.5 g/dL] 1.6 g/dL (04/06/24 3:45 PM) BUN/Creat Ratio [8.0-20.0] 14.3 (04/06/24 3:45 PM) Globulin [2.3-3.5 g/dL] 2.7 g/dL (04/06/24 3:45 PM) hCG Qual Serum [Negative] Negative (04/06/24 3:45 PM) Creatinine Level [0.60-1.20 mg/dL] 0.70 mg/dL (04/06/24 3:45 PM) Anion Gap [3.0-12.0] 7.0 (04/06/24 3:45 PM) Eos, Auto [0.00-3.00 %] 4.90 % *HI* (04/06/24 3:05 PM) eGFR CKD-EPI [>=60 mL/min/1.73 m2] 121 m L/min/1.73 m2 (04/06/24 3:45 PM) 1Interpretive Data: E-hkfyyb-u-benzoquinone imine (meabolite of Acetaminophen) will generate erroneously low lipase results in samples for patients that have taken toxic doses of acetaminophen. Vital Signs Most recent to oldest [Reference Range]: 1 2 Temperature Temporal Artery [36-38 Deg C ] 37.1 Deg C (04/06/24 3:16 PM) Heart Rate Monitored [60-100 bpm] 77 bpm (04/06/24 3:30 PM) 101 bpm *HI* (04/06/24 3:16 PM) Respiratory Rate [12-24 br/min] 16 br/mi n (04/06/24 3:30 PM) 14 br/min (04/06/24 3:16 PM) Blood Pressure [90-140/60-90 mmHg] 111/6 8mmHg (04/06/24 3:30 PM) 121/78mmHg (04/06/24 3:16 PM) Mean Arterial Pressure, Cuff [65-140 mmH g] 82 mmHg (04/06/24 3:30 PM) 92 mmHg (04/06/24 3:16 PM) Weight 49.9 kg (04/06/24 3:16 PM) Weight Dosing 49.900 kg (04/06/24 3:16 PM) Height 162 cm (04/06/24 3:16 PM) Body Mass Index 19.01 kg/m2 (04/06/24 3:16 PM) Social History Social History Type Response Tobacco Never tobacco user T obacco Use:. Sex Sex Representation Female (finding) Hospital Discharge Instructions Patient Education 04/06/2024 17:50:36 Abdominal Pain, Adult Abdominal Pain, Adult Pain in the abdomen (abdominal pain) can be caused by many things. Often, abdominal pain is not serious and it gets better with no treatment or by being treated at home. However, sometimes abdominal pain is serious. Your health care provider will ask questions about your medical history and do a physical exam to try to determine the cause of your abdominal pain. Follow these instructions at home: Medicines ??? Take dyof-tvz-rsannwi and prescription medicines only as told by your health care provider. ??? Do not take a laxative unless told by your health care provider. General instructions ??? Watch your condition for any changes. ??? Drink enough fluid to keep your urine pale yellow. ??? Keep all follow-up visits as told by your health care provider. This is important. Contact a health care provider if: ??? Your abdominal pain changes or gets worse. ??? You are not hungry or you lose weight without trying. ??? You are constipated or have diarrhea for more than 2???3 days. ??? You have pain when you urinate or have a bowel movement. ??? Your abdominal pain wakes you up at night. ??? Your pain gets worse with meals, after eating, or with certain foods. ??? You are vomiting and cannot keep anything down. ??? You have a fever. ??? You have blood in your urine. Get help right away if: ??? Your pain does not go away as soon as your health care provider told you to expect. ??? You cannot stop vomiting. ??? Your pain is only in areas of the abdomen, such as the right side or the left lower portion of the abdomen. Pain on the right side could be caused by appendicitis. ??? You have bloody or black stools, or stools that look like tar. ??? You have severe pain, cramping, or bloating in your abdomen. ??? You have signs of dehydration, such as: ??? Dark urine, very little urine, or no urine. ??? Cracked lips. ??? Dry mouth. ??? Sunken eyes. ??? Sleepiness. ??? Weakness. ??? You have trouble breathing or chest pain. Summary ??? Often, abdominal pain is not serious and it gets better with no treatment or by being treated at home. However, sometimes abdominal pain is serious. ??? Watch your condition for any changes. ??? Take xipi-xsu-confvkm and prescription medicines only as told by your health care provider. ??? Contact a health care provider if your abdominal pain changes or gets worse. ??? Get help right away if you have severe pain, cramping, or bloating in your abdomen. This information is not intended to replace advice given to you by your health care provider. Make sure you discuss any questions you have with your health care provider. Document Revised: 09/18/2020 Document Reviewed: 12/09/2019 [employer] Patient Education ?? 2022 [employer]. Follow Up Care 04/06/2024 14:56:01 With:Eddi Bajwa MD Address: [address] [place] [address]- When:3 to 5 days With:Wilner Jimenez DO Address: [address] [place] [address]- When:3 to 5 days Emergency department Discharge instructions * Emelia Townsend MD: PERFORM Event Display: ED Discharge Information Authored Date: [id number] KILO MOSS :1995 Age:28 years Sex:Female Visit Date:04/06/2024 Primary Care Physician: RENU ALEJANDRO DNP Discharge Instructions We would like to thank you for allowing us to assist you with your healthcare needs. The following includes patient education materials and information regarding your injury/illness. Diagnosis from Today's Visit Abdominal pain Discharge Vitals Temperature??(Temporal Artery) 98.8 ??F (37.1 ??C) Heart Rate??(Monitored) 77 Respiratory Rate?? 16 Blood Pressure?? 111/68?? SpO2?? 99% Height?? 63.78 in (162 cm) Weight?? 110.03 lb (49.9 kg) BMI?? 19.01 Allergies No Known Allergies What to Do Next You Need to Schedule the Following Appointments Follow Up with??Eddi Bajwa MD When:??Within 3 to 5 days Where: [address] [place] [address]- Follow Up with??Wilner Jimenez, When:??Within 3 to 5 days Where: [address] [place] [address]- You were treated today on an emergency basis; it may be eubanks to contact your primary care provider to notify them of your visit today. You may have been referred to your regular doctor or a specialist, please follow up as instructed. If your condition worsens or you can't get in to see the doctor, contact the Emergency Department. Medications What How Much When Instructions Next Dose New ondansetron (ondansetron 4 mg oral tablet, disintegrating) 1 tab Oral (given by mouth) 3 times a day Duration: 3 Days Pickup at [facility] #[id number] Unchanged norethindrone-ethinyl estradiol (Janell Fe oral tablet) Unchanged omeprazole (omeprazole 20 mg oral delayed release capsule) Unchanged sucralfate (sucralfate 1 g oral tablet) Unchanged traMADol (traMADol 50 mg oral tablet) Pharmacy Information [facility] #[id number]: [address], [place] [phone] Education Materials Abdominal Pain, Adult Pain in the abdomen (abdominal pain) can be caused by many things. Often, abdominal pain is not serious and it gets better with no treatment or by being treated at home. However, sometimes abdominal pain is serious. Your health care provider will ask questions about your medical history and do a physical exam to try to determine the cause of your abdominal pain. Follow these instructions at home: Medicines ? Take dkhu-bmq-pczsakc and prescription medicines only as told by your health care provider. ? Do not take a laxative unless told by your health care provider. General instructions ? Watch your condition for any changes. ? Drink enough fluid to keep your urine pale yellow. ? Keep all follow-up visits as told by your health care provider. This is important. Contact a health care provider if: ? Your abdominal pain changes or gets worse. ? You are not hungry or you lose weight without trying. ? You are constipated or have diarrhea for more than 2???3 days. ? You have pain when you urinate or have a bowel movement. ? Your abdominal pain wakes you up at night. ? Your pain gets worse with meals, after eating, or with certain foods. ? You are vomiting and cannot keep anything down. ? You have a fever. ? You have blood in your urine. Get help right away if: ? Your pain does not go away as soon as your health care provider told you to expect. ? You cannot stop vomiting. ? Your pain is only in areas of the abdomen, such as the right side or the left lower portion of the abdomen. Pain on the right side could be caused by appendicitis. ? You have bloody or black stools, or stools that look like tar. ? You have severe pain, cramping, or bloating in your abdomen. ? You have signs of dehydration, such as: ? Dark urine, very little urine, or no urine. ? Cracked lips. ? Dry mouth. ? Sunken eyes. ? Sleepiness. ? Weakness. ? You have trouble breathing or chest pain. Summary ? Often, abdominal pain is not serious and it gets better with no treatment or by being treated at home. However, sometimes abdominal pain is serious. ? Watch your condition for any changes. ? Take himk-dbj-lqyahmg and prescription medicines only as told by your health care provider. ? Contact a health care provider if your abdominal pain changes or gets worse. ? Get help right away if you have severe pain, cramping, or bloating in your abdomen. This information is not intended to replace advice given to you by your health care provider. Make sure you discuss any questions you have with your health care provider. Document Revised: 09/18/2020 Document Reviewed: 12/09/2019 [employer] Patient Education ?? 2022 [employer] Tests Performed Medications and Immunizations Administered Given Sodium Chloride 0.9%, 1000 mL, Hydration Bolus Al hydroxide/Mg hydroxide/simethicone, 30 mL, Oral Lidocaine Viscous, 15 mL, Oral ondansetron, 4 mg, IV Push Lab Test Name Test Result Date/Time WBC 7.2 K/mcL 04/06/2024 15:05 EDT RBC 4.85 Million/mcL 04/06/2024 15:05 EDT Hgb 14.8 g/dL 04/06/2024 15:05 EDT Hct 44.0 % 04/06/2024 15:05 EDT MCV 90.7 fL 04/06/2024 15:05 EDT MCH 30.4 pg 04/06/2024 15:05 EDT MCHC 33.5 g/dL 04/06/2024 15:05 EDT RDW-CV 13.1 % 04/06/2024 15:05 EDT Platelets 243 K/mcL 04/06/2024 15:05 EDT MPV 9.6 fL 04/06/2024 15:05 EDT Neutro Auto 56.8 % 04/06/2024 15:05 EDT Lymph Auto 31.8 % 04/06/2024 15:05 EDT Weber Auto 6.1 % 04/06/2024 15:05 EDT Eos, Auto 4.90 % 04/06/2024 15:05 EDT Basophil Auto 0.4 % 04/06/2024 15:05 EDT Neutro Absolute 4.1 K/mcL 04/06/2024 15:05 EDT Lymph Absolute 2.3 K/mcL 04/06/2024 15:05 EDT Weber Absolute 0.4 K/mcL 04/06/2024 15:05 EDT Eos Absolute 0.4 K/mcL 04/06/2024 15:05 EDT Baso Absolute 0.0 K/mcL 04/06/2024 15:05 EDT Sodium Level 138 mmol/L 04/06/2024 15:45 EDT Potassium Level 3.7 mmol/L 04/06/2024 15:45 EDT Chloride Level 105 mmol/L 04/06/2024 15:45 EDT CO2 26 mmol/L 04/06/2024 15:45 EDT Alk Phos 11 IntlUnit/L 04/06/2024 15:45 EDT AST 14 IntlUnit/L 04/06/2024 15:45 EDT ALT 20 IntlUnit/L 04/06/2024 15:45 EDT BUN 10 mg/dL 04/06/2024 15:45 EDT Glucose Level 106 mg/dL 04/06/2024 15:45 EDT Creatinine Level 0.70 mg/dL 04/06/2024 15:45 EDT BUN/Creat Ratio 14.3 04/06/2024 15:45 EDT eGFR CKD-EPI 121 mL/min/1.73 m2 04/06/2024 15:45 EDT Calcium Level 9.3 mg/dL 04/06/2024 15:45 EDT Protein Total 7.1 g/dL 04/06/2024 15:45 EDT Albumin Level 4.4 g/dL 04/06/2024 15:45 EDT Globulin 2.7 g/dL 04/06/2024 15:45 EDT A/G Ratio 1.6 g/dL 04/06/2024 15:45 EDT Bilirubin Total 0.7 mg/dL 04/06/2024 15:45 EDT Anion Gap 7.0 04/06/2024 15:45 EDT Lactic Acid Lvl 1.2 mmol/L 04/06/2024 15:45 EDT Lipase Level 18 unit/L 04/06/2024 15:45 EDT Osmolality 275 mOsm/kg 04/06/2024 15:45 EDT hCG Qual Serum Negative 04/06/2024 15:45 EDT Patient/Gate Operator Signature Patient Name:KILO MOSS I have received this information and my questions have been answered. Patient/Gate Operator Name: Patient/Gate Operator Signature: Relationship to Patient: Witness Name/Signature: Date: Electronically Signed on: 04/06/2024 18:51 EDTSigned by:BÁRBARA Patient Care team information Care Team Personnel Name: RENU ALEJANDRO DNP Position: No Access Member Role: Primary Care Physician Address: [address] Care Team Related Persons Name: SOHAIL MOSS Insurance Providers Guarantor name: KILO MOSS Health Plan Information #: 1 Payer: [facility] Member Number: [id number] Policy Number: MARIE Health Plan Information #: 2 Payer: [facility] Member Number: [id number] Policy Number: MARIE
--- OUTSIDE RECORDS SUMMARY | 2024-06-01 16:29 | XMS_ITS | Encounter Summary ---
[facility] [place] [address] Care Team Providers Care Asphalt Paving Machine Operator Name Role Phone Juan Luis Luevano DNP Primary Care Provider [phone] Encounter Details Date Type Department Care Team (Late st Contact Info) Description 10/13/2023 Orders [place] [address] Daisy Black MD [facility] [place] [address] Travel advice encounter Social History Tobacco Use [...] encounter documented in this encounter Care Teams Asphalt Paving Machine Operator Relationship Specialty Start Date End Date Juan Luis Luevano DNP [address] [place] [address] PCP - General Family Medicine 07/07/23 documented as of this encounter
--- OUTSIDE RECORDS SUMMARY | 2024-06-01 16:29 | XMS_ITS | Encounter Summary ---
[facility] [address] Care Team Providers Care Cupola Operator Insulation Name Role Phone Juan Luis Luevano DNP Primary Care Provider [phone] Encounter Details Date Type Department Care Team (Latest Contact Info) Description 07/17/2023 6:55 AM EST Laboratory Appointment Lab [address] [place] [phone] Primary female infertility Social History Tobacco Use [...] In Lab Brandan Larkin MD CHEMISTRY ORDERABLES [facility] [place] [address] * Estradiol (07/17/2023 7:06 AM EST) Estradiol 414 pg/mL [facility] Comment: Reference ranges: Males: Adult: ? 11 to 43 pg/mL Females: Non- females: ?Follicular: ??12-233 pg/mL ?Ovulation: ?? 41-398 pg/mL ?Luteal: ?22-341 pg/mL ?Postmenopausal: ?? <5 - 138 pg/mL females: ?1st trimester: ??154-3243 pg/mL ?2nd trimester: ??1561-83061 pg/mL ?3rd trimester: ??8525- >65473 pg/mL Blood 07/17/2023 7:06 AM EST 07/17/2023 7:09 AM EST Narrative Resulting Agency Comment Spec In Lab Brandan Larkin MD CHEMISTRY ORDERABLES Performing Organization Address [facility] Co de Phone Number [facility] [place] [address] * Follicle Stimulating Hormone (07/17/2023 7:06 AM EST) Follicle Stimulating Hormone 24.2 mlU/ML [facility] Comment: Reference Ranges Male: ? 1.5-12.4 mIU/mL Female ?? Follicular: ?3.5-12.5 mIU/mL ?? Ovulation: ? 4.7-21.5 mIU/mL ?? Luteal: ?1.7-7.7 mIU/mL ?? Postmenopausal: ?25.8-134.8 mIU/mL Blood 07/17/2023 7:06 AM EST 07/17/2023 7:09 AM EST Narrative Resulting Agency Comment Spec In Lab Brandan Larkin MD CHEMISTRY ORDERABLES Performing Organization Address [facility] de Phone Number [facility] [place] [address] * Beta HCG, quantitative (07/17/2023 7:06 AM EST) Beta Human Chorionic Gonadotropin, Quantitative <1 mlU/ML [facility] Comment: REFERENCE RANGES NON- FEMALE: ??Less [...] ? 8,175 - 55,868 ?18 weeks ? 8,989 - 21,705 This result was generated using a Octavio Ralf immunoassay. ??Results obtained from other methods or manufacturers cannot be used interchangeably with this method. Blood 07/17/2023 7:06 AM EST 07/17/2023 7:09 AM EST Narrative Resulting Agency Comment Spec In Lab Brandan Larkin MD CHEMISTRY ORDERABLES Performing Organization Address [facility] de Phone Number [facility] [place] [address] * Progesterone (07/17/2023 7:06 AM EST) Progesterone 0.76 ng/mL [facility] Comment: Reference Range [...] MD CHEMISTRY ORDERABLES Performing Organization Address [facility] Co de Phone Number [facility] [place] [address] documented in this encounter Visit Diagnoses Diagnosis Primary female infertility Female infertility of unspecified origin documented in this encounter Care Teams Cupola Operator Insulation Relationship Specialty Start Date End Date Juan Luis Luevano DNP [address] [place] [address] PCP - General Family Medicine 07/07/23 documented as of this encounter
--- OUTSIDE RECORDS SUMMARY | 2024-06-01 16:29 | XMS_ITS | Encounter Summary ---
Author Organization [facility] [place] [address] Care Team Providers Care Unhairer Name Role Phone Juan Luis Luevano DNP Primary Care Provider [phone] Encounter Details Date Type Department Care Team (Late st Contact Info) Description 10/13/2023 Orders Only [place] [address] Daisy Black MD [facility] [place] [address] Travel advice encounter Social History Tobacco Use [...] encounter documented in this encounter Care Teams Unhairer Relationship Specialty Start Date End Date Juan Luis Luevano DNP [address] [place] [address] PCP - General Family Medicine 07/07/23 documented as of this encounter
--- OUTSIDE RECORDS SUMMARY | 2024-06-01 16:29 | XMS_ITS | Encounter Summary ---
[place] [address] Care Team Providers Care Chief Of Party Name Role Phone Juan Luis Luevano DNP Primary Care Provider [phone] Encounter Details Date Type Department Care Team [...] filedocumented in this encounter Care Teams Chief Of Party Relationship Specialty Start Date End Date Juan Luis Luevano DNP [address] [place] [address] PCP - General Family Medicine 07/07/23 documented as of this encounter
--- OUTSIDE RECORDS SUMMARY | 2024-06-01 16:29 | XMS_ITS | Encounter Summary ---
Author Organization [facility] [place] [address] Care Team Providers Care Bail Attacher Name Role Phone Juan Luis Luevano RHETT Primary Care Provider [phone] Encounter Details Date Type Department Care Team (Late st Contact Info) Description 10/13/2023 11:00 AM EST Office Visit Infectious Disease at [facility] [place] [phone] Franchesca Black, cylindrical mixer advice encounter Social History Tobacco Use Types [...] to last [place]ar[place], Cerda Netta Layover in [place] Departure date: 11/17 Length of trip: little over a week Purpose of travel: [employer] Trip Assisting doctors/patient check ins/Vital Signs Potential exposure to blood and body fluids Will check on HIV exposure prophylaxis-will call if needed and not supplied by [employer] Excursions-Shops/beach Type of environment:Urban Accommodations: Hostels Medical [...] denies immunosuppression. Denies history of HIV, transplants, machine long goods helper steroid use or malignancy with chemotherapy or [...] efforts in containing the ZIKV outbreak in [place], a combination of the insecticide naled and the larvicide Bacillus thuringiensis israelensis appears most effective in controlling mosquito populations. See Aedes Mosquito Distribution ([place]) for the Aedes range in the [place]. A. albopictus is widely distributed in [place], and [facility]och[facility]. The vectorial capacity of any non-Aedes [...] occur via vaginal, anal, or oral sex. Vqmr-nn-kkinsz sexual transmission occurs more commonly than wjbrkr-vu-wnxi or oliq-vx-rvxu transmission. Only 1 documented case of qiqdku-nh-figx transmission during vaginal sex has been reported. Transmission by an asymptomatic partner has been documented. The interval between onset of symptoms in the index case and in the sexual partner varies from 4 to 41 days. No longitudinal cohort studies have reported culturable, potentially replication-competent (infectious) ZIKV in semen specimens obtained >= 38 days after symptom onset. 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 Traveler given an official International Certificate of Vaccine or Prophylaxis (ICVP) for vaccine(s) received, and advised to carry original card with travel. Follow-up Recommendations: Advised traveler to contact [facility] if travel plans change or other concerns arise. Patient advised to call travel clinic if they return from trip with any illness. Time spent in travel counselin minutes. Vaccine information sheets given. documented in this encounter Plan of Treatment Not on file documented as of this encounter Visit Diagnoses Diagnosis Travel advice encounter documented in this encounter Care Teams Bail Attacher Relationship Specialty Start Date End Date Juan Luis Luevano DNP [address] [place] [address] [place] [address] PCP - General Family Medicine 07/07/23 documented as of this encounter
--- OUTSIDE RECORDS SUMMARY | 2024-06-01 16:29 | XMS_ITS | Clinical Summary ---
Author Organization [facility] [place] [address] Care Team Providers Care Clearing House Clerk Name Role Phone Juan Luis Luevano Lalitomorgan RHETT Primary Care Provider [phone] Allergies No known active allergies Medications Medication Sig Dispensed Refills Start Date End Date Status UNABLE TO FIND Oral contraception Ac tive Immunizations Name Administration Dates Next Due Covid-19, Unknown Formulation 08/03/2022, 021,11/27/2020 DT Pediatric 11/24/2008 DTP 10/14/1999, 7,1995,10/17,1995 HPV 9-Valent (Gardasil 9) 04/06/2017 HPV, Quadrivalent (Gardasil) 04/10/2016,01/29/20 16 Hepatitis A Adult (Havrix, Vaqta) 10/13/2023 Hepatitis A, Unspecified Formulation 1995, 1995 Hepatitis B, Unspecified Formulation 03/19/1996 Hpv, Unspecified Formulation 04/06/2017,01/29/20 16,11/09/2015 Influenza Unspecified Formulation 2022,08/03/2022,06/18/2021,11/05,07/06/2019 MMR Vaccine LIVE 11/01/1999,09/18/1996 Meningococcal Conjugate 01/22/2013 Polio Oral, Unknown Formulation 10/14/19 00,1995,1995,08/18 Rabies Vaccine, IM Fibroblast 10/13/2023 Rabies Vaccine, Unspecified Formulation 05/10/2019,04/26/2019,04/19/2019 Tdap (Adacel, Boostrix) 11/05/2020,11/05/2020 Typhoid, VICP 10/13/2023 Varicella LIVE (Varivax) 01/22/2013,07/14/1998 Social History Tobacco Use Types Packs/Day [...] Covid-19 Vaccine (4 - 2022-2 4 season) 2024 08/03/2022, 12/25/2020, 11/27/2020 Influenza (Flu) vaccine (1 o f 1 - Influenza standard series) 04/14/2024 05/27/2023, 08/03/2022, 06/18/2021, Additional history exists Tetanus/Diphtheria/Pertussis Vaccines (9 - Td or Tdap) 11/05/2030 11/05/2020, 11/05/2020, 11/24/2008, Additional history exists HPV vaccine Completed 04/06/2017, 03/15, 04/10/2016, Additional history exists Care Teams Clearing House Clerk Relationship Specialty Start Date End Date Juan Luis Luevano DNP [address] [place] [address] PCP - General Family Medicine 07/07/23
--- OUTSIDE RECORDS SUMMARY | 2024-06-01 16:30 | XMS_ITS | Encounter Summary ---
Author Organization [facility] Address [address] [place] [address] Care Team Providers Care Podiatric Foot And Ankle Specialist Name Role Phone Tommy Contreras ND Primary Care Provider [phone] Encounter Details Date Type Department Care Team (Late st Contact Info) Description 05/31/2017 Results Only [facility] [phone] Anya Rayo, BUILDINGS PAINTER [address] [place] [phone] Social History Tobacco Use Types Packs/Day Years [...] ? BRIGETTE MOSS ? Accession #: ? [id number] ? : ? 1995 (Age: 21) ??F ?Collect Date: ? 05/31/2017 ? Location: ? [facility] ? Receive Date: ? 06/02/2017 ? Provider: [facility]- Copy to: ? Final Report SPECIMEN ADEQUACY [...] types 16,18,31,33,35, 39,45,51,52,56,58, 59,66, and 68 by professor of historical theology mediated amplification. Comments Document reviewed and electronically signed by: ? System Interface ? Report date: 06/15/2017 By the signature above, the attending physician certifies that he/she has personally conducted a gross and/or microscopic examination of the described specimens and rendered or confirmed the above diagnosis. End of Report [facility] 05/31/2017 06/02/2017 Anya Rayo NP PATHOLOGY ORDERABLES [facility] [address] [place] [address] documented in this encounter Visit Diagnoses Not on filedocumented in this encounter Care Teams Podiatric Foot And Ankle Specialist Relationship Specialty Start Date End Date Tommy Contreras ND [address] [place] [address] PCP - General 12/04/13 documented as of this encounter
--- OUTSIDE RECORDS SUMMARY | 2024-06-01 16:30 | XMS_ITS | Encounter Summary ---
Author Organization [facility] [place] [address] Care Team Providers Care Upholstery Tech Name Role Phone Aura Jay MD Primary Care Provider [phone] Reason for Visit * Reason Comments Other ? migraine Encounter Details Date Type Department Care Team (Late st Contact Info) Description 06/22/2011 8:45 AM EST Office [place] [phone] Solomon Beasley MD [facility] [place] [address] Migraine headache (Primary Dx) Discharge Disposition: Home [...] is going to be inducted into the [employer] [facility] because she is an excellent student. 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 At any rate, last winter she developed a severe headache along with some agitation and confusion. She was in [facility] for a period of time, and [...] she was in [employer] at [employer]. 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 She just recently has met a counselor [...] Romberg test. There is no ataxia on cxafyb-vs-inqs testing. Rapid alternating movements are carried out [...] diagnosis is migraine. CC: Darwin Dominguez M.D. [facility] documented in this encounter Plan of Treatment Not on file documented as of this encounter Visit Diagnoses Diagnosis Migraine headache- Primary Migraine, unspecified, without mention of intractable migraine without mention of status migrainosus documented in this encounter Care Teams Upholstery Tech Relationship Specialty Start Date End Date Aura Jay MD [facility] CHILD ADVOCACY & [place] [address] PCP - General 07/06/10 07/06/23 documented as of this encounter
--- OUTSIDE RECORDS SUMMARY | 2024-06-01 16:30 | XMS_ITS | Encounter Summary ---
[place] [address] Care Team Providers Care Studio Artist Name Role Phone Juan Luis Luevano RHETT Primary Care Provider [phone] Reason for Referral * Diagnostic Test (Routine) - Pending Review Specialty Diagnoses / Procedures Referred By Contac t Referred To Contact Radiology Diagnoses Primary female infertility Procedures US Ovulation Induction Stacia Larkin MD [address] [address] [place] [address] Referral ID Status Reason Start Date Expiration Date Visits Requested Visits Authorized [id number] Pending Review Specialty Service Requested 3 12/24/2024 1 1 Reason for Visit * Diagnostic Test (Routine) - Pending Review Specialty Diagnoses / Procedures Referred By Contac t Referred To Contact Radiology Diagnoses Primary female infertility Procedures US Ovulation Induction Stacia Larkin MD [address] [place] [address] [place] [address] Referral ID Status Reason Start Date Expiration Date Visits Requested Visits Authorized [id number] Pending Review Specialty Service Requested 3 12/24/2024 1 1 Encounter Details Date Type Department Care Team (Latest Contact Info) Description 07/17/2023 7:45 AM EST - 07/17/2023 11:59 PM EST Hospital [place] [phone] Stacia Larkin MD [facility] [address] [place] [address] Primary female infertility Discharge Disposition: Home Social [...] who have questions, please contact the health health care recruiter that requested your imaging first. ? Richar Peñaloza, Staff Physician Electronically Signed Final Report ?? 07/17/2023 08:52 am Narrative 07/17/2023 8:53 AM EST Follicles Report ?(Signed Final 07/17/2023 08:52 am) PATIENT INFO: ID #: ? [id number] ?: ??[birth year] (28 yrs)(F) Name: ? BRIGETTE MOSS ? Visit Date: 07/17/2023 07:56 am PERFORMED BY: Performed By: ? Es Hawkins RDMS Attending: ?Jh VILLAREAL, Richar Rivas Resident: ? Vikram VILLAREAL, Lavinia Chaves Referred By: ?STACIA LARKIN Location: ? [place] SERVICE(S) PROVIDED: UOI - Ovulation Induction - [id number] INDICATIONS: ANTRAL FOLLICLE COUNT AND SIZE; UTERINE [...] 07/17/2023 08:52 am) PATIENT INFO: ID #: [id number] : [birth year] (28 yrs)(F) Name: BRIGETTE MOSS Visit Date: 07/17/2023 07:56 am PERFORMED BY: Performed By: Es Hawkins RDMS Attending: Richar Peñaloza MD Resident: Lavinia Sue MD Referred By: STACIA LARKIN Location: [place] SERVICE(S) PROVIDED: UOI - Ovulation Induction - [id number] INDICATIONS: ANTRAL FOLLICLE COUNT AND SIZE; UTERINE [...] who have questions, please contact the health health care recruiter that requested your imaging first. Richar Peñaloza, Staff Physician Electronically Signed Final Report 07/17/2023 08:52 am Stacia Larkin MD IMG US PELVIC ORDERA BLES documented in this encounter Visit Diagnoses Diagnosis Primary female infertility Female infertility of unspecified origin documented in this encounter Care Teams Studio Artist Relationship Specialty Start Date End Date Juan Luis Luevano DNP [address] [place] [address] PCP - General Family Medicine 07/07/23 documented as of this encounter
--- OUTSIDE RECORDS SUMMARY | 2024-06-01 16:30 | XMS_ITS | Encounter Summary ---
[place] [address] Care Team Providers Care Radio Artist Name Role Phone Juan Luis Luevano RHETT Primary Care Provider [phone] Reason for Referral * Diagnostic Test (Routine) - Pending Review Specialty Diagnoses / Procedures Referred By Contac t Referred To Contact Radiology Diagnoses Primary female infertility Procedures US Ovulation Induction Stacia Larkin MD [address] [address] [place] [address] Referral ID Status Reason Start Date Expiration Date Visits Requested Visits Authorized [id number] Pending Review Specialty Service Requested 3 12/24/2024 1 1 Reason for Visit * Diagnostic Test (Routine) - Pending Review Specialty Diagnoses / Procedures Referred By Contac t Referred To Contact Radiology Diagnoses Primary female infertility Procedures US Ovulation Induction Stacia Larkin MD [address] [place] [address] [place] [address] Referral ID Status Reason Start Date Expiration Date Visits Requested Visits Authorized [id number] Pending Review Specialty Service Requested 3 12/24/2024 1 1 Encounter Details Date Type Department Care Team (Latest Contact Info) Description 07/07/2023 8:16 AM EST - 07/07/2023 11:59 PM EST Hospital [place] [address] Stacia Larkin MD [facility] [address] [place] [address] Primary female infertility Discharge Disposition: Home Social [...] interpretation. Electronically signed by: Sahara Deleon MD, [facility] ([phone]), at 07/07/2023 8:44 AM Thank you for letting us participate in the care of this patient. If you are a health care provider and have any questions regarding this report, please contact the number above. For patients who have questions, please contact the health care process manager that requested your imaging first. ??Sahara Deleon, BEKAH [facility] Dept Chair - Rad Electronically Signed Final Report ?? 07/07/2023 08:49 am Narrative 07/07/2023 8:50 AM EST [place]licles Report ?(Signed Final 07/07/2023 08:49 am) PATIENT INFO: ID #: ? [id number] ?: ??[birth year] (28 yrs)(F) Name: ? BRIGETTE MOSS ? Visit Date: 07/07/2023 08:38 am PERFORMED BY: Attending: ?Adrienne VILLAREAL, Sahara Chun Performed By: ? Charisma Trejo RDMS Referred By: ?STACIA LARKIN Location: ? [place] SERVICE(S) PROVIDED: UOI - Ovulation Induction - [id number] INDICATIONS: ANTRAL FOLLICLE COUNT AND SIZE; UTERINE [...] 07/07/2023 08:49 am) PATIENT INFO: ID #: [id number] : [birth year] (28 yrs)(F) Name: BRGIETTE MOSS Visit Date: 07/07/2023 08:38 am PERFORMED BY: Attending: Sahraa Deleon MD Performed By: Charisma Trejo RDMS Referred By: STACIA LARKIN Location: [place] SERVICE(S) PROVIDED: UOI - Ovulation Induction - [id number] INDICATIONS: ANTRAL FOLLICLE COUNT AND SIZE; UTERINE [...] interpretation. Electronically signed by: Sahara Deleon MD, [facility] ([phone]), at 07/07/2023 8:44 AM Thank you for letting us participate in the care of this patient. If you are a health care provider and have any questions regarding this report, please contact the number above. For patients who have questions, please contact the health care process manager that requested your imaging first. Sahara Deleon, [facility] & Dept Chair - Rad Electronically Signed Final Report 07/07/2023 08:49 am Stacia Larkin MD IMG US PELVIC ORDERA BLES documented in this encounter Visit Diagnoses Diagnosis Primary female infertility Female infertility of unspecified origin documented in this encounter Care Teams Radio Artist Relationship Specialty Start Date End Date Juan Luis Luevano DNP [address] [place] [address] PCP - General Family Medicine 07/07/23 documented as of this encounter
--- OUTSIDE RECORDS SUMMARY | 2024-06-01 16:30 | XMS_ITS | Encounter Summary ---
Author Organization [facility] Address [address] [place] [address] Care Team Providers Care Family Court Justice Name Role Phone BenTommy CHARO Primary Care Provider [phone] Reason for Visit * Reason Onset Date Comments Appointment Related 01/02/2023 Encounter Details Date Type Department Care Team (Late st Contact Info) Description 01/02/2023 Telephone [facility] [address] [place], [place] [phone] Ludwin Pineda MD [address] [facility] [address] [place] [address] Appointment Related Social History Tobacco [...] on filedocumented in this encounter Care Teams Family Court Justice Relationship Specialty Start Date End Date Tommy Contreras ND [facility] [place] [address] PCP - General 12/04/13 documented as of this encounter
--- OUTSIDE RECORDS SUMMARY | 2024-06-01 16:30 | XMS_ITS | Encounter Summary ---
Author Organization [facility] Address [address] [place] [address] Care Team Providers Care Parking Supervisor Name Role Phone Unknown, Provider Primary Care Provider [phone] Encounter Details Date Type Department Care Team (Late st Contact Info) Description 11/29/2013 Results Only [facility] [phone] Rebecca Funes ND [address] [place] [address] Social History Tobacco Use Types Packs/Day Years [...] % Neutrophils 63.5 45.5 - 79.7 % [facility] % Lymphocytes 27.5 15.0 - [...] PF4 ORD ERABLES [facility] [address] [place] [address] * HEMAGRAM (11/29/2013 8:52 EDT) WBC 5.16 [...] & PF4 ORD ERABLES Performing Organization Address [facility] Co de Phone Number [facility] [address] [place] [address] * TSH (11/29/2013 8:52 EDT) TSH 1.00 0.35 - 5.00 uIU/ml [facility] 11/29/2013 8:52 EDT 11/29/2013 13:50 EDT Rebecca Funes ND CHEMISTRY & BLOOD GA S ORDERABLES Performing Organization Address [facility] de Phone Number [facility] [address] [place] [address] * TRANSFERRIN SATURATION (11/29/2013 8:52 EDT) Iron 103 37 - 170 ug/dl [facility] TIBC 449 265 - 497 ug/dl [facility] Iron Saturation 23 20 - 55 % [facility] 11/29/2013 8:52 EDT 11/29/2013 13:50 EDT Rebecca Funes ND CHEMISTRY & BLOOD GA S ORDERABLES Performing Organization Address [facility] Co de Phone Number [facility] [address] [place] [address] * T4 (11/29/2013 8:52 EDT) T4, Total 6.3 4.5 - 10.9 ug/dL [facility] 11/29/2013 8:52 EDT 11/29/2013 13:50 EDT Rebecca Funes ND CHEMISTRY & BLOOD GA S ORDERABLES Performing Organization Address [facility] Phone Number [facility] [address] [place] [address] * PROGESTERONE (11/29/2013 8:52 EDT) Progesterone 0.8 [...] BLOOD GA S ORDERABLES Performing Organization Address [facility] [place] [address] * LIPID PROFILE (INCLUDES CHOLESTEROL, TRIGLYCERIDES, HDL, LDL) (11/29/2013 8:52 EDT) Cholesterol 109 mg/dl [facility] Comment: Desirable:<200 Borderline High:200-239 High:>mt=374 Triglycerides 48 mg/dl [facility] Comment: Normal:<150 Borderline High:150-199 High:200-499 Very High:>be=909 HDL 46 mg/dl [facility] Comment: Low:<40 Normal:40-60 Desirable: >60 LDL, Calculated 53 mg/dl [facility] Comment: Optimal:<100 Near Optimal:100-129 Borderline High:130-159 High:160-189 Very High:>pe=482 Chol/HDL Ratio 2.4 [facility] Fasting? Unknown [facility] Non HDL Cholesterol 63 mg/dl [facility] Comment: Desirable:<130 Borderline:130-159 High: 160-189 Very High: >mb=145 11/29/2013 8:52 EDT 11/29/2013 13:50 EDT Rebecca Funes ND CHEMISTRY & BLOOD GA S ORDERABLES Performing Organization Address [facility] de Phone Number [facility] [address] [place] [address] * T3 FREE (11/29/2013 8:52 EDT) T3, Free 3.0 2.3 - 4.2 pg/mL [facility] 11/29/2013 8:52 EDT 11/29/2013 13:50 EDT Rebecca Funes ND CHEMISTRY & BLOOD GA S ORDERABLES Performing Organization Address [facility] Phone Number [facility] [address] [place] [address] * (ABNORMAL) FERRITIN (11/29/2013 8:52 EDT) Ferritin 8(L) 10 - 291 ng/mL [facility] 11/29/2013 8:52 EDT 11/29/2013 13:50 EDT Rebecca Funes ND CHEMISTRY & BLOOD GA S ORDERABLES Performing Organization Address [facility] de Phone Number [facility] [address] [place] [address] * ESTROGENS, ESTRONE (E1) AND ESTRADIOL (E2), FRACTIONATED, SERUM (11/29/2013 8:52 EDT) Estrone 40 pg/mL [facility] Comment: (Note) -- REFERENCE VALUE -- Premenopausal :17-200 Postmenopausal : 7-40 Estradiol, Serum 47 pg/mL [facility] Comment: (Note) -- REFERENCE VALUE -- Premenopausal: 15-350 (E2 levels vary widely through the menstrual cycle.) Postmenopausal: <10 Performed or Referred by: [facility] Labs: [facility], [address] [facility], [place] [address], Lab Dir: Bear Rojas III, MD 11/29/2013 8:52 EDT 11/29/2013 13:50 EDT Rebecca Funes ND CHEMISTRY & BLOOD GA S ORDERABLES [facility] [address] [place] [address] * (ABNORMAL) COMPREHENSIVE METABOLIC PANEL (CMP) (11/29/2013 8:52 EDT) Potassium 4.5 3.5 - 5.0 mEq/L [facility] Sodium 143 136 - 145 mEq/L [facility] Chloride 103 96 - 110 mEq/L [facility] CO2 26 24 - 32 [...] GA S ORDERABLES [facility] [address] [place] [address] documented in this encounter Visit Diagnoses Not on filedocumented in this encounter Care Teams Parking Supervisor Relationship Specialty Start Date End Date Unknown, Provider, PCP - General 11/29/13 12/03/13 documented as of this encounter
--- OUTSIDE RECORDS SUMMARY | 2024-06-01 16:30 | XMS_ITS | Encounter Summary ---
Author Organization [facility] Address [address] [place] [address] Care Team Providers Care Director Compliance Name Role Phone Tommy Contreras ND Primary Care Provider [phone] Encounter Details Date Type Department Care Team (Late st Contact Info) Description 03/29/2016 Results Only [facility] [phone] Ashley Ng NP [address] [address] Social History Tobacco Use Types [...] ? BRIGETTE MOSS ? Accession #: ? [id number] : ? 1995 (Age: 20) ??F ?Collect Date: ? 03/29/2016 Location: ? [facility] ? Receive Date: ? 03/30/2016 Provider: ?ASHLEY NG TABLE COVER FOLDER Copy to: ? Specimen/Source: ?Pap Test, Cervix/Endocervix, ThinPrep Imaging System with manual evaluation Last Menstrual Period: ? 03/13/2016 Hormonal/Contracep tive Status: ? None Other: ? Reel And Rewinder Operator Clinical/Treatment Hx - None ? SPECIMEN ADEQUACY ? Satisfactory for Evaluation - transformation zone component present GENERAL CATEGORIZATION ? Negative for Intraepithelial Lesion or Malignancy INTERPRETATION ? Reactive cellular changes associated with inflammation present (includes repair). ? Document reviewed and electronically signed by: ? JARROD SLOAN MD ? Report Date: ??04/05/2016 17:28 End of Report [facility] 03/29/2016 03/30/2016 Ashley Ng TABLE COVER FOLDER PATHOLOGY ORDERABLES [facility] [address] [place] [address] documented in this encounter Visit Diagnoses Not on filedocumented in this encounter Care Teams Director Compliance Relationship Specialty Start Date End Date Tommy Contreras ND [facility] [place] [address] PCP - General 12/04/13 documented as of this encounter
--- OUTSIDE RECORDS SUMMARY | 2024-06-01 16:30 | XMS_ITS | Encounter Summary ---
[place] [address] Care Team Providers Care Supervisor Pipeline Maintenance Name Role Phone Aura Jay MD Primary Care Provider [phone] Encounter Details Date Type Department Care Team (Latest Contact Info) Description 09/12/2010 5:29 PM EST - 09/13/2010 7:16 PM EST Hospital Encounter [place] [address] [place] [address] [place] [address] Discharge Disposition: Home Social History Tobacco Use [...] Active and Recently Administered Medications Care Teams Supervisor Pipeline Maintenance Relationship Specialty Start Date End Date Aura Jay MD [facility] CHILD ADVOCACY & [place] [address] PCP - General 07/06/10 07/06/23 documented as of this encounter
--- OUTSIDE RECORDS SUMMARY | 2024-06-01 16:30 | XMS_ITS | Encounter Summary ---
[place] [address] Care Team Providers Care Pot Liner Name Role Phone Aura Jay MD Primary Care Provider [phone] Encounter Details Date Type Department Care Team (Latest Contact Info) Description 07/04/2023 [place] [phone] Brandan Larkin MD [facility] [address] [place] [address] Primary female infertility Social History Tobacco Use [...] (07/07/2023 7:13 AM EST) Estradiol <5 pg/mL [facility] Comment: Reference ranges: Males: Adult: ? 11 to 43 pg/mL Females: Non- females: ?Follicular: ??12-233 pg/mL ?Ovulation: ?? 41-398 pg/mL ?Luteal: ?22-341 pg/mL ?Postmenopausal: ?? <5 - 138 pg/mL females: ?1st trimester: ??154-3243 pg/mL ?2nd trimester: ??1561-47031 pg/mL ?3rd trimester: ??8525- >22561 pg/mL Blood 07/07/2023 7:13 AM EST 07/07/2023 7:19 AM EST Narrative Resulting Agency Comment Spec In Lab Brandan Larkin MD CHEMISTRY ORDERABLES Performing Organization Address [facility] Co de Phone Number [facility] [address] * Progesterone (07/07/2023 7:13 AM EST) Progesterone 0.34 ng/mL [facility] Comment: Reference Range ng/mL: Males: [...] Larkin MD CHEMISTRY ORDERABLES Performing Organization Address [facility] Co de Phone Number [facility] [address] * Beta HCG, quantitative (07/07/2023 7:13 AM EST) Beta Human Chorionic Gonadotropin, Quantitative <1 mlU/ML [facility] Comment: REFERENCE RANGES NON- FEMALE: ??Less [...] - 56,451 ?17 weeks ? 8,175 - 19,868 ?18 weeks ? 8,170 - 94,176 This result was generated using a Octavio Ralf immunoassay. ??Results obtained from other methods or manufacturers cannot be used interchangeably with this method. Blood 07/07/2023 7:13 AM EST 07/07/2023 7:19 AM EST Narrative Resulting Agency Comment Spec In Lab Brandan Larkin MD CHEMISTRY ORDERABLES Performing Organization Address [facility] de Phone Number [facility] [place] [phone] * Luteinizing Hormone (07/07/2023 7:13 AM EST) Luteinizing Hormone 1.7 mlU/ML [facility] Comment: Reference Ranges Male: ? 1.7-8.6 mIU/mL Female ?? Follicular: ?2.4-12.6 mIU/mL ?? Ovulation: ? 14.0-95.6 mIU/mL ?? Luteal: ?1.0-11.4 mIU/mL ?? Postmenopausal: ?7.7-58.5 mIU/mL Blood 07/07/2023 7:13 AM EST 07/07/2023 7:19 AM EST Narrative Resulting Agency Comment Spec In Lab Brandan Larkin MD CHEMISTRY ORDERABLES Performing Organization Address [facility]/ZIP Co de Phone Number [facility] [address] * Follicle Stimulating Hormone (07/07/2023 7:13 AM EST) Follicle Stimulating Hormone 2.4 mlU/ML [facility] Comment: Reference Ranges Male: ? 1.5-12.4 mIU/mL Female ?? Follicular: ?3.5-12.5 mIU/mL ?? Ovulation: ? 4.7-21.5 mIU/mL ?? Luteal: ?1.7-7.7 mIU/mL ?? Postmenopausal: ?25.8-134.8 mIU/mL Blood 07/07/2023 7:13 AM EST 07/07/2023 7:19 AM EST Narrative Resulting Agency Comment Spec In Lab Brandan Larkin MD CHEMISTRY ORDERABLES Performing Organization Address [facility] Co de Phone Number [facility] [address] documented in this encounter Visit Diagnoses Diagnosis Primary female infertility Female infertility of unspecified origin documented in this encounter Care Teams Pot Liner Relationship Specialty Start Date End Date Aura Jay MD [facility] [address] CHILD ADVOCACY & [place] [address] PCP - General 07/06/10 07/06/23 documented as of this encounter
--- OUTSIDE RECORDS SUMMARY | 2024-06-01 16:30 | XMS_ITS | Encounter Summary ---
Author Organization [facility] [place] [address] Care Team Providers Care Steam Flattener Name Role Phone Juan Luis Luevano DNP Primary Care Provider [phone] Encounter Details Date Type Department Care Team (Latest Contact Info) Description 07/07/2023 6:55 AM EST Laboratory Appointment Lab [address] [place] [phone] Primary female infertility Social History Tobacco Use [...] Larkin MD CHEMISTRY ORDERABLES Performing Organization Address [facility] de Phone Number [facility] [address] * Luteinizing Hormone (07/07/2023 7:13 AM EST) Luteinizing Hormone 1.7 mlU/ML [facility] Comment: Reference Ranges Male: ? 1.7-8.6 mIU/mL Female ?? Follicular: ?2.4-12.6 mIU/mL ?? Ovulation: ? 14.0-95.6 mIU/mL ?? Luteal: ?1.0-11.4 mIU/mL ?? Postmenopausal: ?7.7-58.5 mIU/mL Blood 07/07/2023 7:13 AM EST 07/07/2023 7:19 AM EST Narrative Resulting Agency Comment Spec In Lab Brandan Larkin MD CHEMISTRY ORDERABLES Performing Organization Address [facility] de Phone Number [facility] [place] [address] * Beta HCG, quantitative (07/07/2023 7:13 AM EST) Beta Human Chorionic Gonadotropin, Quantitative <1 mlU/ML [facility] Comment: REFERENCE RANGES NON- FEMALE: ??Less [...] - 56,451 ?17 weeks ? 8,175 - 82,868 ?18 weeks ? 8,717 - 50,176 This result was generated using a Octavio Ralf immunoassay. ??Results obtained from other methods or manufacturers cannot be used interchangeably with this method. Blood 07/07/2023 7:13 AM EST 07/07/2023 7:19 AM EST Narrative Resulting Agency Comment Spec In Lab Brandan Larkin MD CHEMISTRY ORDERABLES [facility] [place] [address] * Progesterone (07/07/2023 7:13 AM EST) Progesterone 0.34 ng/mL [facility] Comment: Reference [...] Larkin MD CHEMISTRY ORDERABLES Performing Organization Address [facility] Co de Phone Number [facility] [place] [address] * Estradiol (07/07/2023 7:13 AM EST) Estradiol <5 pg/mL [facility] Comment: Reference ranges: Males: Adult: ? 11 to 43 pg/mL Females: Non- females: ?Follicular: ??12-233 pg/mL ?Ovulation: ?? 41-398 pg/mL ?Luteal: ?22-341 pg/mL ?Postmenopausal: ?? <5 - 138 pg/mL females: ?1st trimester: ??154-3243 pg/mL ?2nd trimester: ??1561-23281 pg/mL ?3rd trimester: ??8525- >39690 pg/mL Blood 07/07/2023 7:13 AM EST 07/07/2023 7:19 AM EST Narrative Resulting Agency Comment Spec In Lab Brandan Larkin MD CHEMISTRY ORDERABLES Performing Organization Address [facility] Co de Phone Number [facility] [place] [address] documented in this encounter Visit Diagnoses Diagnosis Primary female infertility Female infertility of unspecified origin documented in this encounter Care Teams Steam Flattener Relationship Specialty Start Date End Date Juan Luis Luevano DNP [address] [place] [address] PCP - General Family Medicine 07/07/23 documented as of this encounter
--- OUTSIDE RECORDS SUMMARY | 2024-06-01 16:30 | XMS_ITS | Encounter Summary ---
[place] [address] Care Team Providers Care Carbon Sequestration Plant Engineer Name Role Phone Aura Jay MD Primary Care Provider [phone] Encounter Details Date Type Department Care Team (Late st Contact Info) Description 07/04/2023 [place] [phone] Brandan Larkin MD [address] [address] Social History Tobacco Use Types Packs/Day Years Used Date Smoking Tobacco: Never Sex and Gender Information Value Date Recorded Sex Assigned at Not on file Gender Identity Not on file Sexual Orientation Not on file documented as of this encounter Plan of Treatment Not on file documented as of this encounter Visit Diagnoses Not on filedocumented in this encounter Care Teams Carbon Sequestration Plant Engineer Relationship Specialty Start Date End Date Aura Jay MD [facility] [address] CHILD ADVOCACY & [place] [address] PCP - General 07/06/10 07/06/23 documented as of this encounter
--- OUTSIDE RECORDS SUMMARY | 2024-06-01 16:30 | XMS_ITS | Encounter Summary ---
[place] [address] Care Team Providers Care Apparel Manager Name Role Phone Juan Luis Luevano DNP Primary Care Provider [phone] Encounter Details Date Type Department Care Team [...] on filedocumented in this encounter Care Teams Apparel Manager Relationship Specialty Start Date End Date Juan Luis Luevano DNP [address] [place] [address] PCP - General Family Medicine 07/07/23 documented as of this encounter
--- OUTSIDE RECORDS SUMMARY | 2024-06-01 16:30 | XMS_ITS | Encounter Summary ---
Author Organization [facility] Address [address] [place] [address] Care Team Providers Care Superintendent Police Name Role Phone Tommy Contreras ND Primary Care Provider [phone] Encounter Details Date Type Department Care Team (Late st Contact Info) Description 04/02/2024 Lab Requisition [facility] Pathology & Laboratory Medicine - [facility] [address] [place] [address] Juan Luis Frederick, [address] [place] [address] Encounter for other general examination Social History Tobacco Use Types Packs/Day Years [...] Name Priority Date/Time Associated Diagnosis Comments PAP TEST Today 03/29/2024 16:30 EDT Encounter for other general examination documented in this encounter Results * PAP TEST (03/29/2024 16:30 EDT) Specimens A. Cervix and/or Endocervix , ThinPrep Imaging System with Manual Evaluation 04/09/2024 10:29 EDT [facility] Specimen Adequacy Satisfactory for Evaluation - transformation zone component present 04/09/2024 10:29 EDT [facility] General Categorization Negative for intraepithelial lesion or malignancy 04/09/2024 10:29 EDT [facility] Attestation . 04/09/2024 10:29 EDT [facility] at 1029 Clinical History SEE BELOW 04/09/20 10:29 EDT [facility] Performing Lab [facility] 04/09/2024 10:29 EDT [facility] Scanned Images 04/09/2024 10:29 EDT [facility] Pap Test CERVIX UTERI STRUCTURE / Unknown 03/29/2024 16:30 EDT 04/02/2024 13:54 EDT Juan Luis Luevano DNP PATHOLOGY ORDERAB LES [facility] [address] [place], [place] [address] documented in this encounter Visit Diagnoses Diagnosis Encounter for other general examination documented in this encounter Care Teams Superintendent Police Relationship Specialty Start Date End Date Tommy Contreras ND [address] [place], [place] [address] PCP - General 12/04/13 documented as of this encounter
--- OUTSIDE RECORDS SUMMARY | 2024-06-01 16:30 | XMS_ITS | Encounter Summary ---
Author Organization [facility] Address [address] [place] [address] Care Team Providers Care Supplier Engineer Name Role Phone Tommy Contreras ND Primary Care Provider [phone] Encounter Details Date Type Department Care Team (Late st Contact Info) Description 04/03/2014 Results Only [facility] Laboratory Services - [facility] ([facility]) [address] [place], [place] [address] Rebecca Nagel MD [address] [place] [address] [address] [place], [place] [id number] Social History Tobacco Use Types Packs/Day Years [...] ? BRIGETTE MOSS ? Accession #: ? [id number] : ? 1995 (Age: 18) ??F ?Collect [...] Nagel MD PATHOLOGY ORDERABLES [facility] [address] [place] [address] documented in this encounter Visit Diagnoses Not on filedocumented in this encounter Care Teams Supplier Engineer Relationship Specialty Start Date End Date Tommy Contreras ND [address] [place] [address] PCP - General 12/04/13 documented as of this encounter
--- OUTSIDE RECORDS SUMMARY | 2024-06-01 16:30 | XMS_ITS | Encounter Summary ---
Author Organization [facility] Address [address] [place] [address] Care Team Providers Care Sketch Artist Name Role Phone Ben, Tommy MANCILLA Primary Care Provider [phone] Encounter Details Date Type Department Care Team (Late st Contact Info) Description 09/22/2014 14:08 EST - 09/22/2014 23:[address] [facility] [address] [place] [address] BenTommy ND [address] [place] [phone] Discharge Disposition: Auto Discharge Social History Tobacco [...] on filedocumented in this encounter Care Teams Sketch Artist Relationship Specialty Start Date End Date Tommy Contrersa ND [address] [place] [address] PCP - General 12/04/13 documented as of this encounter
--- OUTSIDE RECORDS SUMMARY | 2024-06-01 16:30 | XMS_ITS | Clinical Summary ---
Author Organization [facility] Address [address] [place] [address] Care Team Providers Care Instructor Programmable Controllers Name Role Phone Tommy Contreras CHARO Primary Care Provider [phone] Medications Medication Sig Dispensed Refills Start Date End Date Status UNKNOWN TO PATIENT Active Encounters Date Type Department Care Team Description 04/02/2024 Lab Requisition [facility] Pathology & Laboratory [facility] [address] [place] [address] Juan Luis Frederick, DNP Encounter for other general examination 03/22/2024 Lab Requisition [facility] Pathology & Laboratory [facility] [address] [place] [address] Outr Resulting Lab, Provider from Last 3 [...] 09/18/2014 07 EST Respiratory Rate 14 09/18/2014 07 EST Oxygen Saturation 100% 09/18/2014 07 EST Inhaled Oxygen Concentration - - Weight 51.7 kg (114 lb) 09/18/2014721 EST Height 160 cm (5' 3) 09/18/2014721 EST Body Mass Index 20.19 09/18/2014 0722 EST Plan of Treatment Health Maintenance Due Date Last Done Comments Hepatitis C Screen 1995 Hepatitis B Vaccine (1 of 3 - 19+ 3-dose series) 06/17 COVID-19 Vaccine (2022- season) 2023 Procedures Procedure Name Priority Date/Time Associated Diagnosis Comments PAP TEST Today 03/29/2024 16:30 EDT Encounter for other general examination H. PYLORI ANTIGEN Routine 03/22/2024 7:00 EDT from Last 3 Months Results * PAP TEST (03/29/2024 16:30 EDT) Specimens A. Cervix and/or Endocervix , ThinPrep Imaging System with Manual Evaluation 04/09/2024 10:29 EDT [facility] Specimen Adequacy Satisfactory for Evaluation - transformation zone component present 04/09/2024 10:29 EDT [facility] General Categorization Negative for intraepithelial lesion or malignancy 04/09/2024 10:29 EDT [facility] Attestation . 04/09/2024 10:29 [facility] at 1029 Clinical History SEE BELOW 04/09/20 10:29 T [facility] Performing Lab [facility] 04/09/2024 10:29 [facility] Scanned Images 04/09/2024 10:29 [facility] Pap Test CERVIX UTERI STRUCTURE / Unknown 03/29/2024 16:30 EDT 04/02/2024 13:54 EDT Juan Luis Luevano DNP PATHOLOGY ORDERAB LES [facility] [address] [place] [address] * H. PYLORI ANTIGEN (03/22/2024 7:00 EDT) H. Pylori Negative Negative 03/26/2024 14:05 EDT [facility] Comment:Indicates the absenc e of H. pylori stool antigen, (or the level of antigen is below that which can be detected by the assay) Feces SPECIMEN FROM RECTUM / Unknown 03/22/2024 7:00 EDT 03/22/2024 17:22 EDT Narrative [facility] - 03/26/2024 14:05 EDT New Liaison XL testing method used as of 06/05/2023 Provider Outr Resulting Lab MICROBIOLOGY - GENERAL ORDERABLES [facility] [address] [place] [address] from Last 3 Months Care Teams Instructor Programmable Controllers Relationship Specialty Start Date End Date Tommy Contreras ND [address] [place] [address] PCP - General 12/04/13
--- OUTSIDE RECORDS SUMMARY | 2024-06-01 16:30 | XMS_ITS | Encounter Summary ---
Author Organization [facility] Address [address] [place] [address] Care Team Providers Care Senior Contracts Administrator Name Role Phone Tommy Contreras ND Primary Care Provider [phone] Encounter Details Date Type Department Care Team (Late st Contact Info) Description 06/26/2015 Results Only [facility] [phone] Martín Esteban, [address] [place], [place] [address] Social History Tobacco Use Types Packs/Day Years [...] Result No polys seen 06/26/2015 13:06 EST [facility] Gram Smear Result No bacteria seen 06/26/2015 13:06 EST [facility] Result No growth 06/28/2015 7:12 EST [facility] SPECIMEN FROM SKIN / Unknown 06/26/2015 8:12 EST 06/26/2015 10:50 EST Comment:Specimen submitted o n a swab Martín PARRA MICROBIOLOGY - GENE RAL ORDERABLES [facility] [address] [place] [address] documented in this encounter Visit Diagnoses Not on filedocumented in this encounter Care Teams Senior Contracts Administrator Relationship Specialty Start Date End Date Tommy Contreras ND [facility] [place] [address] PCP - General 12/04/13 documented as of this encounter
--- OUTSIDE RECORDS SUMMARY | 2024-06-01 16:30 | XMS_ITS | Encounter Summary ---
Author Organization [facility] Address [address] [place] [address] Care Team Providers Care Mine Patrol Name Role Phone Tommy Contreras ND Primary Care Provider [phone] Encounter Details Date Type Department Care Team (Late st Contact Info) Description 03/22/2024 Lab Requisition [facility] Pathology & Laboratory Medicine - [facility] [address] [place], [place] [address] Outr Resulting Lab, Provider Social History Tobacco [...] H. Pylori Negative Negative 03/26/2024 14:05 EDT [facility] Comment:Indicates the absenc e of H. pylori stool antigen, (or the level of antigen is below that which can be detected by the assay) Feces SPECIMEN FROM RECTUM / Unknown 03/22/2024 7:00 EDT 03/22/2024 17:22 EDT Narrative [facility] - 03/26/2024 14:05 EDT New Liaison XL testing method used as of 06/05/2023 Provider Outr Resulting Lab MICROBIOLOGY - GENERAL ORDERABLES [facility] [address] [place], [place] [id number] documented in this encounter Visit Diagnoses Not on filedocumented in this encounter Care Teams Mine Patrol Relationship Specialty Start Date End Date Tommy Contreras ND [address] [place] [address] PCP - General 12/04/13 documented as of this encounter
--- OUTSIDE RECORDS SUMMARY | 2024-06-01 16:30 | XMS_ITS | Encounter Summary ---
Author Organization [facility] Address [address] [place] [address] Care Team Providers Care Trolley Car Operator Name Role Phone Tommy Contreras ND Primary Care Provider [phone] Encounter Details Date Type Department Care Team (Latest Contact Info) Description 06/26/2015 16:25 EST - 06/26/2015 22:00 [facility] Hospital Encounter [facility] - [address] [address] Martín Esteban, FIDEL [address] [place] [address] Discharge Disposition: Home or Self Care Social [...] on filedocumented in this encounter Care Teams Trolley Car Operator Relationship Specialty Start Date End Date Tommy Contreras ND [address] [place], [place] [address] PCP - General 12/04/13 documented as of this encounter
--- OUTSIDE RECORDS SUMMARY | 2024-06-01 16:30 | XMS_ITS | Referral Summary ---
Author Organization [facility] Address [address] [place] [address] Care Team Providers Care Shingle Shearing Machine Operator Name Role Phone Tommy Contreras CHARO Primary Care Provider [phone] Encounters Date Type Department Care Team Description 04/02/2024 Lab Requisition [facility] Pathology & Laboratory [address] [address] Juan Luis Frederick, DNP Encounter for other general examination 03/22/2024 Lab Requisition [facility] Pathology & Laboratory [address] [address] Outr Resulting Lab, Provider from Last 3 [...] 09/18/2014721 EST Body Mass Index 20.19 09/18/2014 07 EST Plan of Treatment Not on file Procedures Procedure Name Priority Date/Time Associated Diagnosis Comments PAP TEST Today 03/29/2024 16:30 EDT Encounter for other general examination H. PYLORI ANTIGEN Routine 03/22/2024 7:00 EDT from Last 3 Months Results * PAP TEST (03/29/2024 16:30 EDT) Specimens A. Cervix and/or Endocervix , ThinPrep Imaging System with Manual Evaluation 04/09/2024 10:29 EDT [facility] Specimen Adequacy Satisfactory for Evaluation - transformation zone component present 04/09/2024 10:29 EDT [facility] General Categorization Negative for intraepithelial lesion or malignancy 04/09/2024 10:29 EDT [facility] Attestation . 04/09/2024 10:29 EDT [facility] at 1029 Clinical History SEE BELOW 04/09/20 10:29 EDT [facility] Performing Lab [facility] 04/09/2024 10:29 T [facility] Scanned Images 04/09/2024 10:29 EDT [facility] Pap Test CERVIX UTERI STRUCTURE / Unknown 03/29/2024 16:30 EDT 04/02/2024 13:54 EDT Juan Luis Luevano [facility] PATHOLOGY ORDERAB LES [facility] [address] [place], [place] [id number] * H. PYLORI ANTIGEN (03/22/2024 7:00 EDT) H. Pylori Negative Negative 03/26/2024 14:05 EDT [facility] Comment:Indicates the absenc e of H. pylori stool antigen, (or the level of antigen is below that which can be detected by the assay) Feces SPECIMEN FROM RECTUM / Unknown 03/22/2024 7:00 EDT 03/22/2024 17:22 EDT Narrative [facility] - 03/26/2024 14:05 EDT New Liaison XL testing method used as of 06/05/2023 Provider Outr Resulting Lab MICROBIOLOGY - GENERAL ORDERABLES [facility] [address] [place] [address] from Last 3 Months Care Teams Shingle Shearing Machine Operator Relationship Specialty Start Date End Date Tommy Contreras ND [facility] [place], [place] [id number] PCP - General 12/04/13
--- OUTSIDE RECORDS SUMMARY | 2024-06-01 16:30 | XMS_ITS | Encounter Summary ---
Author Organization [facility] Address [address] [place] [address] Care Team Providers Care Set O Type Operator Name Role Phone Unknown, Provider Primary Care Provider [phone] Encounter Details Date Type Department Care Team (Latest Contact Info) Description 11/29/2013 10:16 EDT - 11/29/2013 22:00 EDT Hospital Encounter [address] [address] Rebecca Funes ND [address] [place] [address] Discharge Disposition: Home or Self Care Social [...] on filedocumented in this encounter Care Teams Set O Type Operator Relationship Specialty Start Date End Date Unknown, Provider, PCP - General 11/29/13 12/03/13 documented as of this encounter
--- OUTSIDE RECORDS SUMMARY | 2024-06-01 16:30 | XMS_ITS | Encounter Summary ---
[place] [address] Care Team Providers Care Mohel Name Role Phone Aura Jay MD Primary Care Provider [phone] Encounter Details Date Type Department Care Team (Latest Contact Info) Description 06/23/2023 Trans[place] [phone] Brandan Larkin MD [facility] [address] [place] [address] Primary female infertility Social History Tobacco Use [...] 7:06 AM EST) Luteinizing Hormone 1.3 mlU/ML [facility] Comment: Reference Ranges Male: ? 1.7-8.6 mIU/mL Female ?? Follicular: ?2.4-12.6 mIU/mL ?? Ovulation: ? 14.0-95.6 mIU/mL ?? Luteal: ?1.0-11.4 mIU/mL ?? Postmenopausal: ?7.7-58.5 mIU/mL Blood 07/17/2023 7:06 AM EST 07/17/2023 7:09 AM EST Narrative Resulting Agency Comment Spec In Lab Brandan Larkin MD CHEMISTRY ORDERABLES [facility] [place] [address] * Estradiol (07/17/2023 7:06 AM EST) Estradiol 414 pg/mL [facility] Comment: Reference ranges: Males: Adult: ? 11 to 43 pg/mL Females: Non- females: ?Follicular: ??12-233 pg/mL ?Ovulation: ?? 41-398 pg/mL ?Luteal: ?22-341 pg/mL ?Postmenopausal: ?? <5 - 138 pg/mL females: ?1st trimester: ??154-3243 pg/mL ?2nd trimester: ??1561-71354 pg/mL ?3rd trimester: ??8525- >57799 pg/mL Blood 07/17/2023 7:06 AM EST 07/17/2023 7:09 AM EST Narrative Resulting Agency Comment Spec In Lab Brandan Larkin MD CHEMISTRY ORDERABLES Performing Organization Address [facility] Co de Phone Number [facility] [place] [address] * Progesterone (07/17/2023 7:06 AM EST) Progesterone 0.76 ng/mL [facility] Comment: Reference Range ng/mL: [...] MD CHEMISTRY ORDERABLES Performing Organization Address [facility] Co de Phone Number [facility] [place] [address] * Beta HCG, quantitative (07/17/2023 7:06 AM EST) Pathologist [facility] Beta Human Chorionic Gonadotropin, Quantitative <1 mlU/ML [facility] Comment: REFERENCE RANGES NON- FEMALE: ??Less [...] ? 8,175 - 55,868 ?18 weeks ? 9,895 - 64,303 This result was generated using a Octavio Ralf immunoassay. ??Results obtained from other methods or manufacturers cannot be used interchangeably with this method. Blood 07/17/2023 7:06 AM EST 07/17/2023 7:09 AM EST Narrative Resulting Agency Comment Spec In Lab Brandan Larkin MD CHEMISTRY ORDERABLES Performing Organization Address [facility] Co de Phone Number [facility] [place] [address] * Follicle Stimulating Hormone (07/17/2023 7:06 AM EST) Follicle Stimulating Hormone 24.2 mlU/ML [facility] Comment: Reference Ranges Male: ? 1.5-12.4 mIU/mL Female ?? Follicular: ?3.5-12.5 mIU/mL ?? Ovulation: ? 4.7-21.5 mIU/mL ?? Luteal: ?1.7-7.7 mIU/mL ?? Postmenopausal: ?25.8-134.8 mIU/mL Blood 07/17/2023 7:06 AM EST 07/17/2023 7:09 AM EST Narrative Resulting Agency Comment Spec In Lab Brandan Larkin MD CHEMISTRY ORDERABLES Performing Organization Address [facility] de Phone Number [facility] [place] [address] documented in this encounter Visit Diagnoses Diagnosis Primary female infertility Female infertility of unspecified origin documented in this encounter Care Teams Mohel Relationship Specialty Start Date End Date Aura Jay MD [facility]ILD [facility]VOCAC[facility] & [place] [address] PCP - General 07/06/10 07/06/23 documented as of this encounter
--- OUTSIDE RECORDS SUMMARY | 2024-06-01 16:30 | XMS_ITS | Encounter Summary ---
Author Organization [facility] Address [address] [place] [address] Care Team Providers Care Equipment Man Name Role Phone Tommy Contreras ND Primary Care Provider [phone] Reason for Visit * Reason Comments Laceration left index finger la ceration/avulsion finger pinched in grate in milking parlor, dT UTD , Encounter Details Date Type Department Care Team (Late st Contact Info) Description 09/18/2014 7:16 EST - 09/18/2014 7:56 EST Emergency [facility] Emergency Department - Main [place] [address] [place] [address] Edwin Balderas, HAFSA [address] [place] [address] Emergency, MD Edward Fingertip avulsion (Primary Dx); [...] finger laceration/avulsion finger pinched in grate in [facility] Jaime gallagher , The patient is a [...] Past Surgical History Procedure Laterality Date ??? [place] tooth extraction Not on File History Substance [...] PATIENT added in this encounter Care Teams Equipment Man Relationship Specialty Start Date End Date Tommy Contreras ND [address] [place] [address] PCP - General 12/04/13 documented as of this encounter
[2024-06-08 21:28] LABS: Lactoferrin, Qt, Stool <6.25 mcg/mL (<7.25)
== END 2024-06-01 16:26 | disposition home or self-care (01) ==
LOC: LBN 16:25
PROVIDERS: Internal Medicine Gastroenterology; PCP Nurse Practitioner Family; Visit Provider Nurse Practitioner Family
DX: R10.2 Pelvic and perineal pain (principal); Z92.89 Personal history of other medical treatment
CPT/HCPCS: 83631; 87177

== ENCOUNTER 2024-06-02 12:55 | Outpatient (REF) | payer BC, SELFPAY ==
--- OUTSIDE RECORDS SUMMARY | 2024-06-02 13:35 | XMS_ITS | Referral Summary ---
Author Organization [facility] Address [address] [place] [address] Care Team Providers Care Rock Climbing Instructor Name Role Phone Tommy Contreras ND Primary Care Provider [phone] Encounters Date Type Department Care Team Description 04/02/2024 Lab Requisition [facility] Pathology & Laboratory [address] [address] Juan Luis Frederick, DNP Encounter for other general examination 03/22/2024 Lab Requisition [facility] Pathology & Laboratory [address] [address] Outr Resulting Lab, Provider from Last 3 [...] System with Manual Evaluation 04/09/2024 10:29 EDT [facility] Specimen Adequacy Satisfactory for Evaluation - transformation zone component present 04/09/2024 10:29 EDT [facility] General Categorization Negative for intraepithelial lesion or malignancy 04/09/2024 10:29 EDT [facility] Attestation . 04/09/2024 10:29 EDT [facility] at 1029 Clinical History SEE BELOW 04/09/20 10:29 EDT [facility] Performing Lab [facility] 04/09/2024 10:29 T [facility] Scanned Images 04/09/2024 10:29 EDT [facility] Pap Test CERVIX UTERI STRUCTURE / Unknown 03/29/2024 16:30 EDT 04/02/2024 13:54 EDT Juan Luis Luevano [facility] PATHOLOGY ORDERAB LES [facility] [address] [place], [place] [phone] * H. PYLORI ANTIGEN (03/22/2024 7:00 EDT) H. Pylori Negative Negative 03/26/2024 14:05 EDT [facility] Comment:Indicates the absenc e of H. pylori stool antigen, (or the level of antigen is below that which can be detected by the assay) Feces SPECIMEN FROM RECTUM / Unknown 03/22/2024 7:00 EDT 03/22/2024 17:22 EDT Narrative [facility] - 03/26/2024 14:05 EDT New Liaison XL testing method used as of 06/05/2023 Provider Outr Resulting Lab MICROBIOLOGY - GENERAL ORDERABLES [facility] [address] [place] [address] from Last 3 Months Care Teams Rock Climbing Instructor Relationship Specialty Start Date End Date Tommy Contreras ND [facility] [place], [place] [phone] PCP - General 12/04/13
--- OUTSIDE RECORDS SUMMARY | 2024-06-02 13:35 | XMS_ITS | Encounter Summary ---
Author Organization [facility] Address [address] [place] [address] Care Team Providers Care Corn Press Operator Name Role Phone Tommy Contreras ND Primary Care Provider [phone] Encounter Details Date Type Department Care Team (Late st Contact Info) Description 05/31/2017 Results Only [facility] [phone] Anya Rayo, PULLER OUT [address] [place] [phone] Social History Tobacco Use Types Packs/Day Years [...] ? BRIGETTE MOSS ? Accession #: ? [id number] ? : ? 1995 (Age: 21) ??F ?Collect Date: ? 05/31/2017 ? Location: ? [facility] ? Receive Date: ? 06/02/2017 ? Provider: ANYA RAYO [facility]- Copy to: ? Final Report SPECIMEN [...] types 16,18,31,33,35, 39,45,51,52,56,58, 59,66, and 68 by pt escort mediated amplification. Comments Document reviewed and electronically signed by: ? System Interface ? Report date: 06/15/2017 By the signature above, the attending physician certifies that he/she has personally conducted a gross and/or microscopic examination of the described specimens and rendered or confirmed the above diagnosis. End of Report [facility] 05/31/2017 06/02/2017 Anya Rayo NP PATHOLOGY ORDERABLES [facility] [address] [place] [address] documented in this encounter Visit Diagnoses Not on filedocumented in this encounter Care Teams Corn Press Operator Relationship Specialty Start Date End Date Tommy Contreras ND [address] [place] [address] PCP - General 12/04/13 documented as of this encounter
--- OUTSIDE RECORDS SUMMARY | 2024-06-02 13:35 | XMS_ITS | Encounter Summary ---
[place] [address] Care Team Providers Care Patrol Police Sergeant Name Role Phone Juan Luis Luevano RHETT Primary Care Provider [phone] Reason for Referral * Diagnostic Test (Routine) - Pending Review Specialty Diagnoses / Procedures Referred By Contac t Referred To Contact Radiology Diagnoses Primary female infertility Procedures US Ovulation Induction Satcia Larkin MD [address] [address] [place] [address] Referral ID Status Reason Start Date Expiration Date Visits Requested Visits Authorized [id number] Pending Review Specialty Service Requested 3 12/24/2024 1 1 Reason for Visit * Diagnostic Test (Routine) - Pending Review Specialty Diagnoses / Procedures Referred By Contac t Referred To Contact Radiology Diagnoses Primary female infertility Procedures US Ovulation Induction Stacia Larkin MD [address] [place] [address] [place] [address] Referral ID Status Reason Start Date Expiration Date Visits Requested Visits Authorized [id number] Pending Review Specialty Service Requested 3 12/24/2024 1 1 Encounter Details Date Type Department Care Team (Latest Contact Info) Description 07/07/2023 8:16 AM EST - 07/07/2023 11:59 PM EST Hospital Encounter [place] [address] Stacia Larkin MD [facility] [address] [place] [address] Primary female infertility Discharge Disposition: Home Social [...] have questions, please contact the health care clinician that requested your imaging first. ??Sahara Dleeon, BEKAH [facility] & Dept Chair - Rad Electronically Signed Final Report ?? 07/07/2023 08:49 am Narrative 07/07/2023 8:50 AM EST [place] Report ?(Signed Final 07/07/2023 08:49 am) PATIENT INFO: ID #: ? [id number] ?: ??[birth year] (28 yrs)(F) Name: ? BRIGETTE MOSS ? Visit Date: 07/07/2023 08:38 am PERFORMED BY: Attending: ?Adrienne VILLAREAL, Sahara Chun Performed By: ? Charisma Trejo RDMS Referred By: ?STACIA LARKIN Location: ? [place] SERVICE(S) PROVIDED: UOI - Ovulation Induction - [id number] ?[id number] INDICATIONS: ANTRAL FOLLICLE COUNT AND SIZE; UTERINE [...] 07/07/2023 08:49 am) PATIENT INFO: ID #: [id number] : [birth year] (28 yrs)(F) Name: BRIGETTE MOSS Visit Date: 07/07/2023 08:38 am PERFORMED BY: Attending: Sahara Deleon MD Performed By: Charisma Trejo RDMS Referred By: STACIA LARKIN Location: [place] SERVICE(S) PROVIDED: UOI - Ovulation Induction - [id number] INDICATIONS: ANTRAL FOLLICLE COUNT AND SIZE; UTERINE [...] have questions, please contact the health care clinician that requested your imaging first. Sahara Deleon, [facility] & Dept Chair - Rad Electronically Signed Final Report 07/07/2023 08:49 am Stacia Larkin MD IMG US PELVIC ORDERA BLES documented in this encounter Visit Diagnoses Diagnosis Primary female infertility Female infertility of unspecified origin documented in this encounter Care Teams Patrol Police Sergeant Relationship Specialty Start Date End Date Juan Luis Luevano DNP [address] [place] [address] PCP - General Family Medicine 07/07/23 documented as of this encounter
--- OUTSIDE RECORDS SUMMARY | 2024-06-02 13:35 | XMS_ITS | Encounter Summary ---
Author Organization [facility] [place] [address] Care Team Providers Care Hearing Aid Mechanic Name Role Phone Aura Jay MD Primary Care Provider [phone] Reason for Visit * Reason Comments Other ? migraine Encounter Details Date Type Department Care Team (Late st Contact Info) Description 06/22/2011 8:45 AM EST Office Visit [place] [phone] Solomon Beasley MD [facility] [place] [address] Migraine headache (Primary Dx) Discharge Disposition: Home [...] is going to be inducted into the [employer] [facility] because she is an excellent student. 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 At any rate, last winter she developed a severe headache along with some agitation and confusion. She was in [facility] for a period of time, and [...] she was in [employer] at [employer]. 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 She just recently has met a counselor [...] Romberg test. There is no ataxia on [id number] testing. Rapid alternating movements are carried out [...] diagnosis is migraine. CC: Darwin Dominguez M.D. [facility] documented in this encounter Plan of Treatment Not on file documented as of this encounter Visit Diagnoses Diagnosis Migraine headache- Primary Migraine, unspecified, without mention of intractable migraine without mention of status migrainosus documented in this encounter Care Teams Hearing Aid Mechanic Relationship Specialty Start Date End Date Aura Jay MD [facility] CHILD ADVOCACY & [place] [address] PCP - General 07/06/10 07/06/23 documented as of this encounter
--- OUTSIDE RECORDS SUMMARY | 2024-06-02 13:35 | XMS_ITS | Encounter Summary ---
[place] [address] Care Team Providers Care Upholstery Mechanic Name Role Phone Aura Jay MD Primary Care Provider [phone] Encounter Details Date Type Department Care Team (Latest Contact Info) Description 09/12/2010 5:29 PM EST - 09/13/2010 7:16 PM EST Hospital Encounter [place] [address] [place] [address] [place] [address] Discharge Disposition: Home Social History Tobacco Use [...] Active and Recently Administered Medications Care Teams Upholstery Mechanic Relationship Specialty Start Date End Date Aura Jay MD [facility] CHILD ADVOCACY & [place] [address] PCP - General 07/06/10 07/06/23 documented as of this encounter
--- OUTSIDE RECORDS SUMMARY | 2024-06-02 13:35 | XMS_ITS | Clinical Summary ---
Author Organization [facility] [place] [address] Care Team Providers Care Animal Rescuer Name Role Phone Juan Luis Luevano Lalitomorgan RHETT Primary Care Provider [phone] Allergies No known active allergies Medications Medication [...] 03/15, 04/10/2016, Additional history exists Care Teams Animal Rescuer Relationship Specialty Start Date End Date Juan Luis Luevano DNP [address] [place] [address] PCP - General Family Medicine 07/07/23
--- OUTSIDE RECORDS SUMMARY | 2024-06-02 13:35 | XMS_ITS | Encounter Summary ---
[place] [address] Care Team Providers Care Enterprise Project Manager Name Role Phone Juan Luis Luevano RHETT Primary Care Provider [phone] Reason for Referral * Diagnostic Test (Routine) - Pending Review Specialty Diagnoses / Procedures Referred By Contac t Referred To Contact Radiology Diagnoses Primary female infertility Procedures US Ovulation Induction Stacia Larkin MD [address] [address] [place] [address] Referral ID Status Reason Start Date Expiration Date Visits Requested Visits Authorized [id number] Pending Review Specialty Service Requested 3 12/24/2024 1 1 Reason for Visit * Diagnostic Test (Routine) - Pending Review Specialty Diagnoses / Procedures Referred By Contac t Referred To Contact Radiology Diagnoses Primary female infertility Procedures US Ovulation Induction Stacia Larkin MD [address] [place] [address] [place] [address] Referral ID Status Reason Start Date Expiration Date Visits Requested Visits Authorized [id number] Pending Review Specialty Service Requested 3 12/24/2024 1 1 Encounter Details Date Type Department Care Team (Latest Contact Info) Description 07/17/2023 7:45 AM EST - 07/17/2023 11:59 PM EST Hospital Encounter [place] [phone] Stacia Larkin MD [facility] [address] [place] [address] Primary female infertility Discharge Disposition: Home Social [...] have questions, please contact the health manager home healthcare that requested your imaging first. ? Richar Peñaloza, Staff Physician Electronically Signed Final Report ?? 07/17/2023 08:52 am Narrative 07/17/2023 8:53 AM EST [place] Report ?(Signed Final 07/17/2023 08:52 am) PATIENT INFO: ID #: ? [id number] ?: ??[birth year] (28 yrs)(F) Name: ? BRIGETTE MOSS ? Visit Date: 07/17/2023 07:56 am PERFORMED BY: Performed By: ? Es Hawkins RDMS Attending: ?Jh VILLAREAL, Richar Rivas Resident: ? Vikram VILLAREAL, Lavinia Chaves Referred By: ?STACIA LARKIN Location: ? [place] SERVICE(S) PROVIDED: UOI - Ovulation Induction - [id number] ?[id number] INDICATIONS: ANTRAL FOLLICLE COUNT AND SIZE; UTERINE [...] 07/17/2023 08:52 am) PATIENT INFO: ID #: [id number] : [birth year] (28 yrs)(F) Name: BRIGETTE MOSS Visit Date: 07/17/2023 07:56 am PERFORMED BY: Performed By: Es Hawkins RDMS Attending: Richar Peñaloza MD Resident: Lavinia Sue MD Referred By: STACIA LARKIN Location: [place] SERVICE(S) PROVIDED: UOI - Ovulation Induction - [id number] INDICATIONS: ANTRAL FOLLICLE COUNT AND SIZE; UTERINE [...] have questions, please contact the health manager home healthcare that requested your imaging first. Richar Peñaloza, Staff Physician Electronically Signed Final Report 07/17/2023 08:52 am Stacia Larkin MD IMG US PELVIC ORDERA BLES documented in this encounter Visit Diagnoses Diagnosis Primary female infertility Female infertility of unspecified origin documented in this encounter Care Teams Enterprise Project Manager Relationship Specialty Start Date End Date Juan Luis Luevano DNP [address] [place] [address] PCP - General Family Medicine 07/07/23 documented as of this encounter
--- OUTSIDE RECORDS SUMMARY | 2024-06-02 13:35 | XMS_ITS | Encounter Summary ---
[place] [address] Care Team Providers Care Glass Furnace Tender Name Role Phone Juan Luis Luevano DNP Primary Care Provider [phone] Encounter Details Date Type Department Care Team [...] on filedocumented in this encounter Care Teams Glass Furnace Tender Relationship Specialty Start Date End Date Juan Luis Luevano DNP [address] [place] [address] PCP - General Family Medicine 07/07/23 documented as of this encounter
--- OUTSIDE RECORDS SUMMARY | 2024-06-02 13:35 | XMS_ITS | Clinical Summary ---
Author Organization [facility] Address [address] [place] [address] Care Team Providers Care Drum Handler Name Role Phone Tommy Contreras ND Primary Care Provider [phone] Medications Medication Sig Dispensed Refills Start Date End Date Status UNKNOWN TO PATIENT Active Encounters Date Type Department Care Team Description 04/02/2024 Lab Requisition [facility] Pathology & Laboratory [facility] [address] [place] [address] Juan Luis Frederick, DNP Encounter for other general examination 03/22/2024 Lab Requisition [facility] Pathology & Laboratory [facility] [address] [place] [address] Outr Resulting Lab, Provider from Last 3 [...] - 19+ 3-dose series) 06/17 COVID-19 Vaccine ( season) 2024 Procedures Procedure Name Priority Date/Time Associated Diagnosis Comments PAP TEST Today 03/29/2024 16:30 EDT Encounter for other general examination H. PYLORI ANTIGEN Routine 03/22/2024 7:00 EDT from Last 3 Months Results * PAP TEST (03/29/2024 16:30 EDT) Specimens A. Cervix and/or Endocervix , ThinPrep Imaging System with Manual Evaluation 04/09/2024 10:29 EDT [facility] Specimen Adequacy Satisfactory for Evaluation - transformation zone component present 04/09/2024 10:29 EDT [facility] General Categorization Negative for intraepithelial lesion or malignancy 04/09/2024 10:29 EDT [facility] Attestation . 04/09/2024 10:29 [facility] at 1029 Clinical History SEE BELOW 04/09/20 10:29 T [facility] Performing Lab [facility] 04/09/2024 10:29 [facility] Scanned Images 04/09/2024 10:29 [facility] Pap Test CERVIX UTERI STRUCTURE / Unknown 03/29/2024 16:30 EDT 04/02/2024 13:54 EDT Juan Luis Luevano DNP PATHOLOGY ORDERAB LES [facility] [address] [place] [address] * H. PYLORI ANTIGEN (03/22/2024 7:00 EDT) H. Pylori Negative Negative 03/26/2024 14:05 EDT [facility] Comment:Indicates the absenc e of H. pylori stool antigen, (or the level of antigen is below that which can be detected by the assay) Feces SPECIMEN FROM RECTUM / Unknown 03/22/2024 7:00 EDT 03/22/2024 17:22 EDT Narrative [facility] - 03/26/2024 14:05 EDT New Liaison XL testing method used as of 06/05/2023 Provider Outr Resulting Lab MICROBIOLOGY - GENERAL ORDERABLES [facility] [address] [place] [address] from Last 3 Months Care Teams Drum Handler Relationship Specialty Start Date End Date Tommy Contreras ND [address] [place] [address] PCP - General 12/04/13
--- OUTSIDE RECORDS SUMMARY | 2024-06-02 13:35 | XMS_ITS | Encounter Summary ---
[place] [address] Care Team Providers Care Documentation Analyst Name Role Phone Aura Jay MD Primary Care Provider [phone] Encounter Details Date Type Department Care Team (Latest Contact Info) Description 06/23/2023 Transcribe [place] [phone] Brandan Larkin MD [facility] [address] [place] [address] Primary female infertility Social History Tobacco Use [...] 7:06 AM EST) Luteinizing Hormone 1.3 mlU/ML [facility] Comment: Reference Ranges Male: ? 1.7-8.6 mIU/mL Female ?? Follicular: ?2.4-12.6 mIU/mL ?? Ovulation: ? 14.0-95.6 mIU/mL ?? Luteal: ?1.0-11.4 mIU/mL ?? Postmenopausal: ?7.7-58.5 mIU/mL Blood 07/17/2023 7:06 AM EST 07/17/2023 7:09 AM EST Narrative Resulting Agency Comment Spec In Lab Brandan Larkin MD CHEMISTRY ORDERABLES [facility] [place] [address] * Estradiol (07/17/2023 7:06 AM EST) Estradiol 414 pg/mL [facility] Comment: Reference ranges: Males: Adult: ? 11 to 43 pg/mL Females: Non- females: ?Follicular: ??12-233 pg/mL ?Ovulation: ?? 41-398 pg/mL ?Luteal: ?22-341 pg/mL ?Postmenopausal: ?? <5 - 138 pg/mL females: ?1st trimester: ??154-3243 pg/mL ?2nd trimester: ??1561-99361 pg/mL ?3rd trimester: ??8525- >97141 pg/mL Blood 07/17/2023 7:06 AM EST 07/17/2023 7:09 AM EST Narrative Resulting Agency Comment Spec In Lab Brandan Larkin MD CHEMISTRY ORDERABLES Performing Organization Address [facility] Co de Phone Number [facility] [place] [address] * Progesterone (07/17/2023 7:06 AM EST) Progesterone 0.76 ng/mL [facility] Comment: Reference Range [...] Larkin MD CHEMISTRY ORDERABLES Performing Organization Address [facility] Co de Phone Number [facility] [place] [address] * Beta HCG, quantitative (07/17/2023 7:06 AM EST) Pathologist [facility] Beta Human Chorionic Gonadotropin, Quantitative <1 mlU/ML [facility] Comment: REFERENCE RANGES NON- FEMALE: [...] ? 8,175 - 55,868 ?18 weeks ? 1,361 - 04,081 This result was generated using a Octavio Ralf immunoassay. ??Results obtained from other methods or manufacturers cannot be used interchangeably with this method. Blood 07/17/2023 7:06 AM EST 07/17/2023 7:09 AM EST Narrative Resulting Agency Comment Spec In Lab Brandan Larkin MD CHEMISTRY ORDERABLES Performing Organization Address City/[facility] Co de Phone Number [facility] [place] [address] * Follicle Stimulating Hormone (07/17/2023 7:06 AM EST) Follicle Stimulating Hormone 24.2 mlU/ML [facility] Comment: Reference Ranges Male: ? 1.5-12.4 mIU/mL Female ?? Follicular: ?3.5-12.5 mIU/mL ?? Ovulation: ? 4.7-21.5 mIU/mL ?? Luteal: ?1.7-7.7 mIU/mL ?? Postmenopausal: ?25.8-134.8 mIU/mL Blood 07/17/2023 7:06 AM EST 07/17/2023 7:09 AM EST Narrative Resulting Agency Comment Spec In Lab Brandan Larkin MD CHEMISTRY ORDERABLES Performing Organization Address [facility] de Phone Number [facility] [place] [address] documented in this encounter Visit Diagnoses Diagnosis Primary female infertility Female infertility of unspecified origin documented in this encounter Care Teams Documentation Analyst Relationship Specialty Start Date End Date Aura Jay MD [facility] [place] [address] PCP - General 07/06/10 07/06/23 documented as of this encounter
--- OUTSIDE RECORDS SUMMARY | 2024-06-02 13:35 | XMS_ITS | Encounter Summary ---
Author Organization [facility] [place] [address] Care Team Providers Care Wire Fence Builder Name Role Phone Juan Luis Luevano DNP Primary Care Provider [phone] Encounter Details Date Type Department Care Team (Latest Contact Info) Description 07/17/2023 6:55 AM EST Laboratory Appointment Lab [address] [place] [phone] Primary female infertility Social History Tobacco Use [...] In Lab Brandan Larkin MD CHEMISTRY ORDERABLES [facility] [address] * Estradiol (07/17/2023 7:06 AM EST) Estradiol 414 pg/mL [facility] Comment: Reference ranges: Males: Adult: ? 11 to 43 pg/mL Females: Non- females: ?Follicular: ??12-233 pg/mL ?Ovulation: ?? 41-398 pg/mL ?Luteal: ?22-341 pg/mL ?Postmenopausal: ?? <5 - 138 pg/mL females: ?1st trimester: ??154-3243 pg/mL ?2nd trimester: ??1561-06943 pg/mL ?3rd trimester: ??8525- >43550 pg/mL Blood 07/17/2023 7:06 AM EST 07/17/2023 7:09 AM EST Narrative Resulting Agency Comment Spec In Lab Brandan Larkin MD CHEMISTRY ORDERABLES Performing Organization Address [facility] Co de Phone Number [facility] [address] * Follicle Stimulating Hormone (07/17/2023 7:06 AM EST) Follicle Stimulating Hormone 24.2 mlU/ML [facility] Comment: Reference Ranges Male: ? 1.5-12.4 mIU/mL Female ?? Follicular: ?3.5-12.5 mIU/mL ?? Ovulation: ? 4.7-21.5 mIU/mL ?? Luteal: ?1.7-7.7 mIU/mL ?? Postmenopausal: ?25.8-134.8 mIU/mL Blood 07/17/2023 7:06 AM EST 07/17/2023 7:09 AM EST Narrative Resulting Agency Comment Spec In Lab Brandan Larkin MD CHEMISTRY ORDERABLES Performing Organization Address [facility] de Phone Number [facility] [address] * Beta HCG, quantitative (07/17/2023 7:06 AM EST) Beta Human Chorionic Gonadotropin, Quantitative <1 mlU/ML [facility] Comment: REFERENCE RANGES NON- FEMALE: ??Less [...] ? 8,175 - 55,868 ?18 weeks ? 8,439 - 49,562 This result was generated using a Octavio Ralf immunoassay. ??Results obtained from other methods or manufacturers cannot be used interchangeably with this method. Blood 07/17/2023 7:06 AM EST 07/17/2023 7:09 AM EST Narrative Resulting Agency Comment Spec In Lab Brandan Larkin MD CHEMISTRY ORDERABLES Performing Organization Address [facility] de Phone Number [facility] [address] * Progesterone (07/17/2023 7:06 AM EST) Progesterone 0.76 ng/mL [facility] Comment: Reference Range ng/mL: [...] Larkin MD CHEMISTRY ORDERABLES Performing Organization Address [facility] Co de Phone Number [facility] [address] documented in this encounter Visit Diagnoses Diagnosis Primary female infertility Female infertility of unspecified origin documented in this encounter Care Teams Wire Fence Builder Relationship Specialty Start Date End Date Juan Luis Luevano DNP [address] [place] [address] PCP - General Family Medicine 07/07/23 documented as of this encounter
--- OUTSIDE RECORDS SUMMARY | 2024-06-02 13:35 | XMS_ITS | Encounter Summary ---
Author Organization [facility] Address [address] [place] [address] Care Team Providers Care Wax Machine Operator Name Role Phone BenTommy CHARO Primary Care Provider [phone] Reason for Visit * Reason Onset Date Comments Appointment Related 01/02/2023 Encounter Details Date Type Department Care Team (Late st Contact Info) Description 01/02/2023 Telephone [facility] [address] [place], [place] [address] Ludwin Pineda MD [address] [facility] [address] [place] [address] Appointment Related Social History Tobacco [...] on filedocumented in this encounter Care Teams Wax Machine Operator Relationship Specialty Start Date End Date Tommy Contreras ND [facility] [place] [address] PCP - General 12/04/13 documented as of this encounter
--- OUTSIDE RECORDS SUMMARY | 2024-06-02 13:35 | XMS_ITS | Encounter Summary ---
[place] [address] Care Team Providers Care Manager Specialty Name Role Phone Juan Luis Luevano DNP Primary Care Provider [phone] Encounter Details Date Type Department Care Team [...] on filedocumented in this encounter Care Teams Manager Specialty Relationship Specialty Start Date End Date Juan Luis Luevano DNP [address] [place] [address] PCP - General Family Medicine 07/07/23 documented as of this encounter
--- OUTSIDE RECORDS SUMMARY | 2024-06-02 13:35 | XMS_ITS | Encounter Summary ---
Author Organization [facility] Address [address] [place] [address] Care Team Providers Care Transmission Inspector Name Role Phone Tommy Contreras ND Primary Care Provider Encounter Details Date Type Department Care Team (Late st Contact Info) Description 03/22/2024 Lab Requisition [facility] Pathology & Laboratory Medicine - [facility] [address] [place], [place] [address] Outr Resulting Lab, Provider Social History Tobacco [...] H. Pylori Negative Negative 03/26/2024 14:05 EDT [facility] Comment:Indicates the absenc e of H. pylori stool antigen, (or the level of antigen is below that which can be detected by the assay) Feces SPECIMEN FROM RECTUM / Unknown 03/22/2024 7:00 EDT 03/22/2024 17:22 EDT Narrative [facility] - 03/26/2024 14:05 EDT New Liaison XL testing method used as of 06/05/2023 Provider Outr Resulting Lab MICROBIOLOGY - GENERAL ORDERABLES [facility] [address] [place], [place] [id number] documented in this encounter Visit Diagnoses Not on filedocumented in this encounter Care Teams Transmission Inspector Relationship Specialty Start Date End Date Tommy Contreras ND [address] [place] [address] PCP - General 12/04/13 documented as of this encounter
--- OUTSIDE RECORDS SUMMARY | 2024-06-02 13:35 | XMS_ITS | Encounter Summary ---
Author Organization [facility] Address [address] [place] [address] Care Team Providers Care Employee Communications Intern Name Role Phone Tommy Contreras ND Primary Care Provider [phone] Encounter Details Date Type Department Care Team (Late st Contact Info) Description 03/29/2016 Results Only [facility] [phone] Ashley Ng NP [address] [address] Social History Tobacco Use Types [...] ? BRIGETTE MOSS ? Accession #: ? [id number] : ? 1995 (Age: 20) ??F ?Collect Date: ? 03/29/2016 Location: ? [facility] ? Receive Date: ? 03/30/2016 Provider: ?ASHLEY NG CONCRETE BLOCK MOLDER Copy to: ? Specimen/Source: ?Pap Test, Cervix/Endocervix, ThinPrep Imaging System with manual evaluation Last Menstrual Period: ? 03/13/2016 Hormonal/Contracep tive Status: ? None Other: ? [place] Clinical/Treatment Hx - None ? SPECIMEN ADEQUACY ? Satisfactory for Evaluation - transformation zone component present GENERAL CATEGORIZATION ? Negative for Intraepithelial Lesion or Malignancy INTERPRETATION ? Reactive cellular changes associated with inflammation present (includes repair). ? Document reviewed and electronically signed by: ? JARROD SLOAN MD ? Report Date: ??04/05/2016 17:28 End of Report [facility] 03/29/2016 03/30/2016 Ashley Ng CONCRETE BLOCK MOLDER PATHOLOGY ORDERABLES [facility] [address] [place] [address] documented in this encounter Visit Diagnoses Not on filedocumented in this encounter Care Teams Employee Communications Intern Relationship Specialty Start Date End Date Tommy Contreras ND [facility] [place] [address] PCP - General 12/04/13 documented as of this encounter
--- OUTSIDE RECORDS SUMMARY | 2024-06-02 13:35 | XMS_ITS | Encounter Summary ---
Author Organization [facility] Address [address] [place] [address] Care Team Providers Care Subsorter Name Role Phone Tommy Contreras ND Primary Care Provider [phone] Encounter Details Date Type Department Care Team (Late st Contact Info) Description 04/02/2024 Lab Requisition [facility] Pathology & Laboratory Medicine - [facility] [address] [place] [address] Juan Luis Frederick, [address] [place] [address] Encounter for other general examination [...] System with Manual Evaluation 04/09/2024 10:29 EDT [facility] Specimen Adequacy Satisfactory for Evaluation - transformation zone component present 04/09/2024 10:29 EDT [facility] General Categorization Negative for intraepithelial lesion or malignancy 04/09/2024 10:29 EDT [facility] Attestation . 04/09/2024 10:29 EDT [facility] at 1029 Clinical History SEE BELOW 04/09/20 10:29 EDT [facility] Performing Lab [facility] 04/09/2024 10:29 EDT [facility] Scanned Images 04/09/2024 10:29 EDT [facility] Pap Test CERVIX UTERI STRUCTURE / Unknown 03/29/2024 16:30 EDT 04/02/2024 13:54 EDT Juan Luis Luevano DNP PATHOLOGY ORDERAB LES [facility] [address] [place], [place] [address] documented in this encounter Visit Diagnoses Diagnosis Encounter for other general examination documented in this encounter Care Teams Subsorter Relationship Specialty Start Date End Date Tommy Contreras ND [address] [place], [place] [address] PCP - General 12/04/13 documented as of this encounter
--- OUTSIDE RECORDS SUMMARY | 2024-06-02 13:35 | XMS_ITS | Encounter Summary ---
[place] [address] Care Team Providers Care Braille Duplicating Machine Operator Name Role Phone Juan Luis Luevano DNP Primary Care Provider [phone] Encounter Details Date Type Department Care Team [...] on filedocumented in this encounter Care Teams Braille Duplicating Machine Operator Relationship Specialty Start Date End Date Juan Luis Luevano DNP [address] [place] [address] PCP - General Family Medicine 07/07/23 documented as of this encounter
--- OUTSIDE RECORDS SUMMARY | 2024-06-02 13:35 | XMS_ITS | Encounter Summary ---
Author [facility] [place] [address] Care Team Providers Care Market Risk Analyst Name Role Phone Juan Luis Luevano DNP Primary Care Provider [phone] Encounter Details Date Type Department Care Team (Late st Contact Info) Description 10/13/2023 Orders [place] [address] Daisy Black MD [facility] [place] [address] Travel advice encounter Social History Tobacco Use [...] encounter documented in this encounter Care Teams Market Risk Analyst Relationship Specialty Start Date End Date Juan Luis Luevano DNP [address] [place] [address] PCP - General Family Medicine 07/07/23 documented as of this encounter
--- OUTSIDE RECORDS SUMMARY | 2024-06-02 13:35 | XMS_ITS | Encounter Summary ---
[place] [address] Care Team Providers Care Liquor Bridge Operator Helper Name Role Phone Aura Jay MD Primary Care Provider [phone] Encounter Details Date Type Department Care Team (Latest Contact Info) Description 07/04/2023 Transcribe [place] [phone] Brandan Larkin MD [facility] [address] [place] [address] Primary female infertility Social History Tobacco Use [...] (07/07/2023 7:13 AM EST) Estradiol <5 pg/mL [facility] Comment: Reference ranges: Males: Adult: ? 11 to 43 pg/mL Females: Non- females: ?Follicular: ??12-233 pg/mL ?Ovulation: ?? 41-398 pg/mL ?Luteal: ?22-341 pg/mL ?Postmenopausal: ?? <5 - 138 pg/mL females: ?1st trimester: ??154-3243 pg/mL ?2nd trimester: ??1561-00106 pg/mL ?3rd trimester: ??8525- >48458 pg/mL Blood 07/07/2023 7:13 AM EST 07/07/2023 7:19 AM EST Narrative Resulting Agency Comment Spec In Lab Brandan Larkin MD CHEMISTRY ORDERABLES Performing Organization Address [facility] Co de Phone Number [facility] [address] * Progesterone (07/07/2023 7:13 AM EST) Progesterone 0.34 ng/mL [facility] Comment: Reference Range ng/mL: Males: ? [...] Larkin MD CHEMISTRY ORDERABLES Performing Organization Address [facility] Co de Phone Number [facility] [address] * Beta HCG, quantitative (07/07/2023 7:13 AM EST) Beta Human Chorionic Gonadotropin, Quantitative <1 mlU/ML [facility] Comment: REFERENCE RANGES NON- FEMALE: ??Less [...] - 56,451 ?17 weeks ? 8,175 - 88,868 ?18 weeks ? 8,984 - 36,176 This result was generated using a Octavio Ralf immunoassay. ??Results obtained from other methods or manufacturers cannot be used interchangeably with this method. Blood 07/07/2023 7:13 AM EST 07/07/2023 7:19 AM EST Narrative Resulting Agency Comment Spec In Lab Brandan Larkin MD CHEMISTRY ORDERABLES Performing Organization Address [facility] de Phone Number [facility] [place] [phone] * Luteinizing Hormone (07/07/2023 7:13 AM EST) Luteinizing Hormone 1.7 mlU/ML [facility] Comment: Reference Ranges Male: ? 1.7-8.6 mIU/mL Female ?? Follicular: ?2.4-12.6 mIU/mL ?? Ovulation: ? 14.0-95.6 mIU/mL ?? Luteal: ?1.0-11.4 mIU/mL ?? Postmenopausal: ?7.7-58.5 mIU/mL Blood 07/07/2023 7:13 AM EST 07/07/2023 7:19 AM EST Narrative Resulting Agency Comment Spec In Lab Brandan Larkin MD CHEMISTRY ORDERABLES Performing Organization Address [facility]/ZIP Co de Phone Number [facility] [address] * Follicle Stimulating Hormone (07/07/2023 7:13 AM EST) Follicle Stimulating Hormone 2.4 mlU/ML [facility] Comment: Reference Ranges Male: ? 1.5-12.4 mIU/mL Female ?? Follicular: ?3.5-12.5 mIU/mL ?? Ovulation: ? 4.7-21.5 mIU/mL ?? Luteal: ?1.7-7.7 mIU/mL ?? Postmenopausal: ?25.8-134.8 mIU/mL Blood 07/07/2023 7:13 AM EST 07/07/2023 7:19 AM EST Narrative Resulting Agency Comment Spec In Lab Brandan Larkin MD CHEMISTRY ORDERABLES Performing Organization Address [facility] Co de Phone Number [facility] [address] documented in this encounter Visit Diagnoses Diagnosis Primary female infertility Female infertility of unspecified origin documented in this encounter Care Teams Liquor Bridge Operator Helper Relationship Specialty Start Date End Date Aura Jay MD [facility] [address] [facility]ILD [facility] [place] [address] PCP - General 07/06/10 07/06/23 documented as of this encounter
--- OUTSIDE RECORDS SUMMARY | 2024-06-02 13:35 | XMS_ITS | Encounter Summary ---
[place] [address] Care Team Providers Care Industrial Engineering Name Role Phone Aura Jay MD Primary Care Provider [phone] Encounter Details Date Type Department Care Team (Late st Contact Info) Description 07/04/2023 Transcribe [place] [phone] Brandan Larkin MD [address] [address] Social History Tobacco Use Types Packs/Day Years Used Date Smoking Tobacco: Never Sex and Gender Information Value Date Recorded Sex Assigned at Not on file Gender Identity Not on file Sexual Orientation Not on file documented as of this encounter Plan of Treatment Not on file documented as of this encounter Visit Diagnoses Not on filedocumented in this encounter Care Teams Industrial Engineering Relationship Specialty Start Date End Date Aura Jay MD [facility]ILD [facility] [place] [address] PCP - General 07/06/10 07/06/23 documented as of this encounter
--- OUTSIDE RECORDS SUMMARY | 2024-06-02 13:35 | XMS_ITS | Encounter Summary ---
Author Organization [facility] [place] [address] Care Team Providers Care Warehouse Operator Name Role Phone Juan Luis Luevano RHETT Primary Care Provider [phone] Encounter Details Date Type Department Care Team (Late st Contact Info) Description 10/13/2023 11:00 AM EST Office Visit Infectious Disease at [facility] [place] [phone] Franchesca Black, charge coordinator advice encounter Social History Tobacco Use Types [...] to last [place], Cerda Netta Layover in [place] Departure date: 11/17 Length of trip: little over a week Purpose of travel: [employer] Trip Assisting doctors/patient check ins/Vital Signs Potential exposure to blood and body fluids Will check on HIV exposure prophylaxis-will call if needed and not supplied by [employer] Excursions-Shops/beach Type of environment:Urban Accommodations: Hostels Medical [...] denies immunosuppression. Denies history of HIV, transplants, longwall headgate operator steroid use or malignancy with chemotherapy or [...] efforts in containing the ZIKV outbreak in [place], a combination of the insecticide naled and the larvicide Bacillus thuringiensis israelensis appears most effective in controlling mosquito populations. See Aedes Mosquito Distribution ([place]) for the Aedes range in the [place]. A. albopictus is widely distributed in [place], and [facility]. The vectorial capacity of any [...] occur via vaginal, anal, or oral sex. Ovby-ln-ksgjmu sexual transmission occurs more commonly than qeyjcg-bm-rryr or ljtf-zp-rlbc transmission. Only 1 documented case of amrnsm-px-czkb transmission during vaginal sex has been reported. 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 Traveler given an official International Certificate of Vaccine or Prophylaxis (ICVP) for vaccine(s) received, and advised to carry original card with travel. Follow-up Recommendations: Advised traveler to contact [facility] if travel plans change or other concerns arise. Patient advised to call travel clinic if they return from trip with any illness. Time spent in travel counselin minutes. Vaccine information sheets given. documented in this encounter Plan of Treatment Not on file documented as of this encounter Visit Diagnoses Diagnosis Travel advice encounter documented in this encounter Care Teams Warehouse Operator Relationship Specialty Start Date End Date Juan Luis Luevano DNP [address] [place] [address] [place] [address] PCP - General Family Medicine 07/07/23 documented as of this encounter
--- OUTSIDE RECORDS SUMMARY | 2024-06-02 13:35 | XMS_ITS | Encounter Summary ---
Author Organization [facility] Address [address] [place] [address] Care Team Providers Care Window Installation Subcontractor Name Role Phone Tommy Contreras ND Primary Care Provider [phone] Encounter Details Date Type Department Care Team (Latest Contact Info) Description 06/26/2015 16:25 EST - 06/26/2015 22:00 [facility] Hospital Encounter [facility] - [address] [address] Martín Esteban, FIDEL [address] [place] [address] Discharge Disposition: Home or Self Care Social [...] on filedocumented in this encounter Care Teams Window Installation Subcontractor Relationship Specialty Start Date End Date Tommy Contreras ND [address] [place], [place] [address] PCP - General 12/04/13 documented as of this encounter
--- OUTSIDE RECORDS SUMMARY | 2024-06-02 13:35 | XMS_ITS | Encounter Summary ---
[facility] [place] [address] Care Team Providers Care Ship Harbor Pilot Name Role Phone Juan Luis Luevano DNP Primary Care Provider [phone] Encounter Details Date Type Department Care Team (Late st Contact Info) Description 10/13/2023 Orders Only [place] [address] Daisy Black MD [facility] [place] [address] Travel advice encounter Social History Tobacco Use [...] encounter documented in this encounter Care Teams Ship Harbor Pilot Relationship Specialty Start Date End Date Juan Lusi Luevano DNP [address] [place] [address] PCP - General Family Medicine 07/07/23 documented as of this encounter
--- OUTSIDE RECORDS SUMMARY | 2024-06-02 13:35 | XMS_ITS | Encounter Summary ---
Author Organization [facility] [place] [address] Care Team Providers Care Marshmallow Machine Worker Name Role Phone Juan Luis Luevano DNP Primary Care Provider [phone] Encounter Details Date Type Department Care Team (Latest Contact Info) Description 07/07/2023 6:55 AM EST Laboratory Appointment Lab [address] [place] [phone] Primary female infertility Social History Tobacco Use [...] ORDERABLES Performing Organization Address [facility] de Phone Number [facility] [place] [address] * Luteinizing Hormone (07/07/2023 7:13 AM EST) Luteinizing Hormone 1.7 mlU/ML [facility] Comment: Reference Ranges Male: ? 1.7-8.6 mIU/mL Female ?? Follicular: ?2.4-12.6 mIU/mL ?? Ovulation: ? 14.0-95.6 mIU/mL ?? Luteal: ?1.0-11.4 mIU/mL ?? Postmenopausal: ?7.7-58.5 mIU/mL Blood 07/07/2023 7:13 AM EST 07/07/2023 7:19 AM EST Narrative Resulting Agency Comment Spec In Lab Brandan Larkin MD CHEMISTRY ORDERABLES Performing Organization Address [facility] de Phone Number [facility] [place] [address] * Beta HCG, quantitative (07/07/2023 7:13 AM EST) Beta Human Chorionic Gonadotropin, Quantitative <1 mlU/ML [facility] Comment: REFERENCE RANGES NON- FEMALE: ??Less [...] - 56,451 ?17 weeks ? 8,175 - 01,868 ?18 weeks ? 8,733 - 36,176 This result was generated using a Octavio Ralf immunoassay. ??Results obtained from other methods or manufacturers cannot be used interchangeably with this method. Blood 07/07/2023 7:13 AM EST 07/07/2023 7:19 AM EST Narrative Resulting Agency Comment Spec In Lab Brandan Larkin MD CHEMISTRY ORDERABLES [facility] [place] [address] * Progesterone (07/07/2023 7:13 AM EST) Progesterone 0.34 ng/mL [facility] Comment: Reference Range ng/mL: [...] Larkin MD CHEMISTRY ORDERABLES Performing Organization Address [facility] Co de Phone Number [facility] [place] [address] * Estradiol (07/07/2023 7:13 AM EST) Estradiol <5 pg/mL [facility] Comment: Reference ranges: Males: Adult: ? 11 to 43 pg/mL Females: Non- females: ?Follicular: ??12-233 pg/mL ?Ovulation: ?? 41-398 pg/mL ?Luteal: ?22-341 pg/mL ?Postmenopausal: ?? <5 - 138 pg/mL females: ?1st trimester: ??154-3243 pg/mL ?2nd trimester: ??1561-64474 pg/mL ?3rd trimester: ??8525- >66342 pg/mL Blood 07/07/2023 7:13 AM EST 07/07/2023 7:19 AM EST Narrative Resulting Agency Comment Spec In Lab Brandan Larkin MD CHEMISTRY ORDERABLES Performing Organization Address [facility] Co de Phone Number [facility] [place] [address] documented in this encounter Visit Diagnoses Diagnosis Primary female infertility Female infertility of unspecified origin documented in this encounter Care Teams Marshmallow Machine Worker Relationship Specialty Start Date End Date Juan Luis Luevano DNP [address] [facility] [place] [address] PCP - General Family Medicine 07/07/23 documented as of this encounter
--- OUTSIDE RECORDS SUMMARY | 2024-06-02 13:36 | XMS_ITS | Encounter Summary ---
Author Organization [facility] Address [address] [place] [address] Care Team Providers Care Top Case Assembler Name Role Phone Tommy Contreras ND Primary Care Provider [phone] Encounter Details Date Type Department Care Team (Late st Contact Info) Description 06/26/2015 Results Only [facility] [phone] Martín Esteban, FIDEL [address] [place], [place] [address] Social History Tobacco Use Types Packs/Day Years [...] Result No polys seen 06/26/2015 13:06 EST [facility] Gram Smear Result No bacteria seen 06/26/2015 13:06 EST [facility] Result No growth 06/28/2015 7:12 EST [facility] SPECIMEN FROM SKIN / Unknown 06/26/2015 8:12 EST 06/26/2015 10:50 EST Comment:Specimen submitted o n a swab Martín PARRA MICROBIOLOGY - GENE RAL ORDERABLES [facility] [address] [place] [address] documented in this encounter Visit Diagnoses Not on filedocumented in this encounter Care Teams Top Case Assembler Relationship Specialty Start Date End Date Tommy Contreras ND [facility] [place] [address] PCP - General 12/04/13 documented as of this encounter
--- OUTSIDE RECORDS SUMMARY | 2024-06-02 13:36 | XMS_ITS | Encounter Summary ---
Author Organization [facility] Address [address] [place] [address] Care Team Providers Care Larry Car Operator Name Role Phone Unknown, Provider Primary Care Provider [phone] Encounter Details Date Type Department Care Team (Latest Contact Info) Description 11/29/2013 10:16 EDT - 11/29/2013 22:00 EDT Hospital Encounter [address] [address] Rebecca Funes ND [address] [place] [address] Discharge Disposition: Home or Self Care Social [...] on filedocumented in this encounter Care Teams Larry Car Operator Relationship Specialty Start Date End Date Unknown, Provider, PCP - General 11/29/13 12/03/13 documented as of this encounter
--- OUTSIDE RECORDS SUMMARY | 2024-06-02 13:36 | XMS_ITS | Encounter Summary ---
Author Organization [facility] Address [address] [place] [address] Care Team Providers Care Strategic Account Executive Name Role Phone Tommy Contreras ND Primary Care Provider [phone] Reason for Visit * Reason Comments Laceration left index finger la ceration/avulsion finger pinched in grate in milking parlor, dT UTD , Encounter Details Date Type Department Care Team (Late st Contact Info) Description 09/18/2014 7:16 EST - 09/18/2014 7:56 EST Emergency [facility] Emergency Department - Main [place] [address] [place] [address] Edwin Balderas, HAFSA [address] [place] [address] Emergency, MD Edward Fingertip avulsion (Primary Dx); [...] finger laceration/avulsion finger pinched in grate in [facility] Jaime gallagher , The patient is a [...] Past Surgical History Procedure Laterality Date ??? [place] tooth extraction Not on File History Substance [...] PATIENT added in this encounter Care Teams Strategic Account Executive Relationship Specialty Start Date End Date Tommy Contreras ND [address] [place] [address] PCP - General 12/04/13 documented as of this encounter
--- OUTSIDE RECORDS SUMMARY | 2024-06-02 13:36 | XMS_ITS | Encounter Summary ---
Author Organization [facility] Address [address] [place] [address] Care Team Providers Care Marketing Liaison Name Role Phone Unknown, Provider Primary Care Provider [phone] Encounter Details Date Type Department Care Team (Late st Contact Info) Description 11/29/2013 Results Only [facility] [phone] Rebecca Funes ND [address] [place] [address] Social History Tobacco Use Types Packs/Day Years [...] % Eosinophils 0.7 0.6 - 6.9 % [facility] % Basophils 0.9 0.2 - [...] PF4 ORD ERABLES [facility] [address] [place] [address] * HEMAGRAM (11/29/2013 8:52 EDT) WBC 5.16 [...] & PF4 ORD ERABLES Performing Organization Address [facility] Co de Phone Number [facility] [address] [place] [address] * TSH (11/29/2013 8:52 EDT) TSH 1.00 0.35 - 5.00 uIU/ml [facility] 11/29/2013 8:52 EDT 11/29/2013 13:50 EDT Rebecca Funes ND CHEMISTRY & BLOOD GA S ORDERABLES Performing Organization Address [facility] de Phone Number [facility] [address] [place] [address] * TRANSFERRIN SATURATION (11/29/2013 8:52 EDT) Iron 103 37 - 170 ug/dl [facility] TIBC 449 265 - 497 ug/dl [facility] Iron Saturation 23 20 - 55 % [facility] 11/29/2013 8:52 EDT 11/29/2013 13:50 EDT Rebecca Funes ND CHEMISTRY & BLOOD GA S ORDERABLES Performing Organization Address [facility] Co de Phone Number [facility] [address] [place] [address] * T4 (11/29/2013 8:52 EDT) T4, Total 6.3 4.5 - 10.9 ug/dL [facility] 11/29/2013 8:52 EDT 11/29/2013 13:50 EDT Rebecca Funes ND CHEMISTRY & BLOOD GA S ORDERABLES Performing Organization Address [facility] Phone Number [facility] [address] [place] [address] * PROGESTERONE (11/29/2013 8:52 EDT) Progesterone 0.8 [...] BLOOD GA S ORDERABLES Performing Organization Address [facility] [place] [address] * LIPID PROFILE (INCLUDES CHOLESTEROL, TRIGLYCERIDES, HDL, LDL) (11/29/2013 8:52 EDT) Cholesterol 109 mg/dl [facility] Comment: Desirable:<200 Borderline High:200-239 High:>fp=276 Triglycerides 48 mg/dl [facility] Comment: Normal:<150 Borderline High:150-199 High:200-499 Very High:>bd=927 HDL 46 mg/dl [facility] Comment: Low:<40 Normal:40-60 Desirable: >60 LDL, Calculated 53 mg/dl [facility] Comment: Optimal:<100 Near Optimal:100-129 Borderline High:130-159 High:160-189 Very High:>mx=268 Chol/HDL Ratio 2.4 [facility] Fasting? Unknown [facility] Non HDL Cholesterol 63 mg/dl [facility] Comment: Desirable:<130 Borderline:130-159 High: 160-189 Very High: >co=165 11/29/2013 8:52 EDT 11/29/2013 13:50 EDT Rebecca Funes ND CHEMISTRY & BLOOD GA S ORDERABLES Performing Organization Address [facility] de Phone Number [facility] [address] [place] [address] * T3 FREE (11/29/2013 8:52 EDT) T3, Free 3.0 2.3 - 4.2 pg/mL [facility] 11/29/2013 8:52 EDT 11/29/2013 13:50 EDT Rebecca Funes ND CHEMISTRY & BLOOD GA S ORDERABLES Performing Organization Address [facility] Phone Number [facility] [address] [place] [address] * (ABNORMAL) FERRITIN (11/29/2013 8:52 EDT) Ferritin 8(L) 10 - 291 ng/mL [facility] 11/29/2013 8:52 EDT 11/29/2013 13:50 EDT Rebecca Funes ND CHEMISTRY & BLOOD GA S ORDERABLES Performing Organization Address [facility] de Phone Number [facility] [address] [place] [address] * ESTROGENS, ESTRONE (E1) AND ESTRADIOL (E2), [...] by: [facility] Labs: [facility], [address] [facility], [place] [address], Lab Dir: Bear Rojas III, MD 11/29/2013 8:52 EDT 11/29/2013 13:50 EDT Rebecca Funes ND CHEMISTRY & BLOOD GA S ORDERABLES [facility] [address] [place] [address] * (ABNORMAL) COMPREHENSIVE METABOLIC PANEL (CMP) (11/29/2013 [...] GA S ORDERABLES [facility] [address] [place] [address] documented in this encounter Visit Diagnoses Not on filedocumented in this encounter Care Teams Marketing Liaison Relationship Specialty Start Date End Date Unknown, Provider, PCP - General 11/29/13 12/03/13 documented as of this encounter
--- OUTSIDE RECORDS SUMMARY | 2024-06-02 13:36 | XMS_ITS | Encounter Summary ---
Author Organization [facility] Address [address] [place] [address] Care Team Providers Care Seam Rubber Name Role Phone Tommy Contreras ND Primary Care Provider [phone] Encounter Details Date Type Department Care Team (Late st Contact Info) Description 04/03/2014 Results Only [facility] - [facility] ([facility] [address] [place], [place] [address] Rebecca Nagel MD [address] [place] [address] [place] [id number] Social History Tobacco Use Types Packs/Day Years [...] ? BRIGETTE MOSS ? Accession #: ? [id number] : ? 1995 (Age: 18) ??F ?Collect [...] Nagel MD PATHOLOGY ORDERABLES [facility] [address] [place] [address] documented in this encounter Visit Diagnoses Not on filedocumented in this encounter Care Teams Seam Rubber Relationship Specialty Start Date End Date Tommy Contreras ND [address] [place] [address] PCP - General 12/04/13 documented as of this encounter
--- OUTSIDE RECORDS SUMMARY | 2024-06-02 13:36 | XMS_ITS | Encounter Summary ---
Author Organization [facility] Address [address] [place] [address] Care Team Providers Care Nuclear Reactor Technician Name Role Phone Ben, Tommy MANCILLA Primary Care Provider [phone] Encounter Details Date Type Department Care Team (Late st Contact Info) Description 09/22/2014 14:08 EST - 09/22/2014 23:59 EST Hospital Encounter [facility] [address] [place] [address] BenTommy ND [address] [place] [address] Discharge Disposition: Auto Discharge Social History Tobacco [...] on filedocumented in this encounter Care Teams Nuclear Reactor Technician Relationship Specialty Start Date End Date Tommy Contreras ND [address] [place] [address] PCP - General 12/04/13 documented as of this encounter
== END 2024-06-02 12:56 | disposition home or self-care (01) ==
LOC: LBN 12:55
PROVIDERS: PCP Nurse Practitioner Family; Visit Provider Internal Medicine Gastroenterology
DX: R10.2 Pelvic and perineal pain (principal); Z92.89 Personal history of other medical treatment
CPT/HCPCS: 87177

== ENCOUNTER 2024-06-03 19:36 | Outpatient (REF) | payer BC, SELFPAY | END 2024-06-03 19:37 | disposition home or self-care (01) | LOC: LBN 19:36 | PROVIDERS: PCP Nurse Practitioner Family; Visit Provider Internal Medicine Gastroenterology | DX: R10.31 Right lower quadrant pain (principal); R11.0 Nausea; R19.4 Change in bowel habit | CPT/HCPCS: 87177 ==